=== PATIENT | male | born 1960 | race Caucasian/White ===

== ENCOUNTER 2017-01-30 02:33 | Inpatient (IN) | payer SELFPAY ==
[2017-01-30] MEDS ORDERED: Aspirin Low Dose CHEW TAB* 81 MG PO ONE (02:35)
[2017-01-30 03:15] LABS: ALT 28 U/L (7-52); AST 56 U/L (13-39); Albumin 3.5 g/dL (3.2-5.2); Alkaline Phosphatase 38 U/L (34-104); BUN/Creatinine Ratio 22.7 (8-20); Blood Urea Nitrogen 20 mg/dL (6-24); CO2 Carbon Dioxide 21 mmol/L (22-32); Calcium 8.2 mg/dL (8.6-10.3); Chloride 79 mmol/L (101-111); EGFR African American 114.4 (>60); EGFR Non-African American 88.9 (>60); Globulin 2.3 g/dL (2-4); Glucose 128 mg/dL (70-100); Magnesium 1.9 mg/dL (1.9-2.7); Potassium 3.8 mmol/L (3.5-5.0); Total Protein 5.8 g/dL (6.4-8.9)
[2017-01-30 03:16] LABS: Anion Gap 16 mmol/L (2-11); Sodium 116 mmol/L (133-145)
[2017-01-30 03:18] LABS: Comments Flag Yes; Hematocrit 17 % (42-52); Mean Corpuscular HGB Conc 34 g/dl (31-36); Mean Corpuscular Hemoglobin 32 pg (27-31); Mean Corpuscular Volume 94 fL (80-94); Mean Platelet Volume 10 um3 (7.4-10.4); Red Blood Count 1.76 10^6/ul (4.0-5.4); Red Cell Distribution Width 14 % (10.5-15); Troponin I 0.05 ng/mL (<0.04)
[2017-01-30 03:19] LABS: Add Diff/Slide Review? Slide Review Added; Hemoglobin 5.7 g/dl (14.0-18.0)
[2017-01-30 03:22] LABS: Alcohol < 10 mg/dL (<10)
[2017-01-30] MEDS ORDERED: Iohexol 350* (CONTRAST) 500 ML MDV IV ONE (03:29)
[2017-01-30 04:04] LABS: Comments Flag Yes; Hematocrit 16 % (42-52); Mean Corpuscular HGB Conc 35 g/dl (31-36); Mean Corpuscular Hemoglobin 33 pg (27-31); Mean Corpuscular Volume 94 fL (80-94); Mean Platelet Volume 9 um3 (7.4-10.4); Red Blood Count 1.66 10^6/ul (4.0-5.4); Red Cell Distribution Width 14 % (10.5-15); White Blood Count 13.9 10^3/ul (3.5-10.8)
[2017-01-30 04:06] LABS: Hemoglobin 5.4 g/dl (14.0-18.0)
[2017-01-30 04:07] LABS: ALT 28 U/L (7-52); AST 55 U/L (13-39); Albumin 3.4 g/dL (3.2-5.2); Alkaline Phosphatase 36 U/L (34-104); BUN/Creatinine Ratio 24.7 (8-20); Blood Urea Nitrogen 21 mg/dL (6-24); CO2 Carbon Dioxide 25 mmol/L (22-32); Calcium 8.1 mg/dL (8.6-10.3); Chloride 80 mmol/L (101-111); EGFR African American 119.1 (>60); EGFR Non-African American 92.6 (>60); Globulin 2.2 g/dL (2-4); Glucose 135 mg/dL (70-100); Potassium 3.7 mmol/L (3.5-5.0); Total Protein 5.6 g/dL (6.4-8.9)
[2017-01-30 04:08] LABS: Anion Gap 12 mmol/L (2-11); Sodium 117 mmol/L (133-145)
[2017-01-30] MEDS ORDERED: NS 0.9% 1000 ML* 1,000 ML IV ONE (04:08)
[2017-01-30 04:27] LABS: Alcohol < 10 mg/dL (<10)
[2017-01-30] MEDS ORDERED: Morphine INJ* 2 MG/ML 1 ML SYRINGE IV ONE (04:35)
[2017-01-30] MEDS ORDERED: Morphine INJ* 2 MG/ML 1 ML SYRINGE ONE (04:37)
[2017-01-30] MEDS ORDERED: Thiamine IV* 100 MG, Folic Acid IV* 1 MG, Multiple Vitamin IV ADULT* 10 ML in NS 0.9% 1... IV ONE (05:58)
--- NOTE | 2017-01-30 06:05 | ED ---
I, Oh,Sakshi, scribed for Josiah Ramirez MD on 01/30/17 at 0247 . HPI Chest Pain - HPI Summary HPI Summary: This 56 y/o male presents to ED for acute right anterior CP since 0700 AM on . He decided to visit ED when pt became concerned with persistent CP and onset of dizziness tonight. EMT also reports that pt c/o lightheaded dizziness and appeared to have decreased responsiveness when pt was sit on chair. ASA given en route by EMT. He took Advil without much relief. Pt consumed EtOH tonight. Pt is currently denying any PMHx. - History of Current Complaint Chief Complaint: ED Time Seen by Provider: 01/30/17 02:35 Hx Obtained From: Patient, EMS Onset/Duration: Atraumatic Timing: Constant Chest Pain Location: Right Anterior Chest Pain Radiates: No Character: Dull/Aching Aggravating Factor(s): Nothing Alleviating Factor(s): Nothing Associated Signs and Symptoms: Positive: Dizziness, Lightheadedness - Allergy/Home Medications Allergies/Adverse Reactions: Allergies Allergy/AdvReac Type Severity Reaction Status Date / Time No Known Allergies Allergy Verified 01/30/17 02:40 Home Medications: Home Medications NK [No Home Medications Reported] 01/30/17 [History Confirmed 01/30/17] PMH/Surg Hx/FS Hx/Imm Hx Previously Healthy: Yes - denies any PMHx Infectious Disease History: No Infectious Disease History: Denies: Traveled Outside the [place] in Last 30 Days - Family History Known Family History: Negative: Cardiac Disease - Social History Alcohol Use: Beer consumption tonight Hx Substance Use: No Substance Use Type: Reports: None Hx Tobacco Use: No Smoking Status (MU): Never Smoked Tobacco Review of Systems Negative: Fever Positive: Chest Pain Neurological: Other - positive for dizziness Positive: Syncope Negative: Anxious, Depressed All Other Systems Reviewed And Are Negative: Yes Physical Exam Triage Information Reviewed: Yes Vital Signs On Initial Exam: Initial Vitals Temp Pulse Resp BP Pulse Ox 98.8 F 126 22 116/62 100 01/30/17 02:34 01/30/17 02:34 01/30/17 02:34 01/30/17 02:34 01/30/17 02:34 Vital Signs Reviewed: Yes Appearance: Positive: Ill-Appearing, Thin Skin: Positive: Warm, Dry Eyes: Positive: CADE ENT: Positive: Hearing grossly normal Neck: Positive: Supple Respiratory/Lung Sounds: Positive: Breath Sounds Present Cardiovascular: Positive: RRR Abdomen Description: Positive: Nontender, No Organomegaly, Soft, Other: - rectal maroon stool, guaic pos Bowel Sounds: Positive: Present Musculoskeletal: Positive: Strength/ROM Intact Neurological: Positive: Sensory/Motor Intact, Alert, Oriented to Person Place, Time Psychiatric: Positive: Affect/Mood Appropriate Diagnostics - Vital Signs Vital Signs Temp Pulse Resp BP Pulse Ox 01/30/17 02:34 98.8 F 126 22 116/62 100 - Laboratory Lab Results: Lab Results 01/30/17 01/30/17 01/30/17 Range/Units 02:50 02:50 02:50 WBC 15.0 H (3.5-10.8) 10^3/ul RBC 1.76 L (4.0-5.4) 10^6/ul Hgb 5.7 L* (14.0-18.0) g/dl Hct 17 L (42-52) % MCV 94 (80-94) fL MCH 32 H (27-31) pg MCHC 34 (31-36) g/dl RDW 14 (10.5-15) % Plt Count 125 L (150-450) 10^3/ul MPV 10 (7.4-10.4) um3 Neut % (Auto) 91.2 H (38-83) % Lymph % (Auto) 5.8 L (25-47) % Avery % (Auto) 3.0 (1-9) % Eos % (Auto) 0 (0-6) % Baso % (Auto) 0 (0-2) % Absolute Neuts (auto) 13.7 H (1.5-7.7) 10^3/ul Absolute Lymphs (auto) 0.9 L (1.0-4.8) 10^3/ul Absolute Monos (auto) 0.4 (0-0.8) 10^3/ul Absolute Eos (auto) 0 (0-0.6) 10^3/ul Absolute Basos (auto) 0 (0-0.2) 10^3/ul Absolute Nucleated RBC 0.01 10^3/ul Nucleated RBC % 0.1 INR (Anticoag Therapy) (0.89-1.11) D-Dimer, Quantitative 493 H (Less Than 230) ng/mL Sodium 116 L* (133-145) mmol/L Potassium 3.8 (3.5-5.0) mmol/L Chloride 79 L (101-111) mmol/L Carbon Dioxide 21 L (22-32) mmol/L Anion Gap 16 H (2-11) mmol/L BUN 20 (6-24) mg/dL Creatinine 0.88 (0.67-1.17) mg/dL Est GFR ( Amer) 114.4 (>60) Est GFR (Non-Af Amer) 88.9 (>60) BUN/Creatinine Ratio 22.7 H (8-20) Glucose 128 H (70-100) mg/dL Lactic Acid (0.5-2.0) mmol/L Calcium 8.2 L (8.6-10.3) mg/dL Magnesium 1.9 (1.9-2.7) mg/dL Total Bilirubin 0.90 (0.2-1.0) mg/dL AST 56 H (13-39) U/L ALT 28 (7-52) U/L Alkaline Phosphatase 38 (34-104) U/L Troponin I 0.05 H* (<0.04) ng/mL Total Protein 5.8 L (6.4-8.9) g/dL Albumin 3.5 (3.2-5.2) g/dL Globulin 2.3 (2-4) g/dL Albumin/Globulin Ratio 1.5 (1-3) Serum Alcohol < 10 (<10) mg/dL Blood Type Antibody Screen Crossmatch 01/30/17 01/30/17 01/30/17 Range/Units 02:50 02:50 03:45 WBC (3.5-10.8) 10^3/ul RBC (4.0-5.4) 10^6/ul Hgb (14.0-18.0) g/dl Hct (42-52) % MCV (80-94) fL MCH (27-31) pg MCHC (31-36) g/dl RDW (10.5-15) % Plt Count (150-450) 10^3/ul MPV (7.4-10.4) um3 Neut % (Auto) (38-83) % Lymph % (Auto) (25-47) % Avery % (Auto) (1-9) % Eos % (Auto) (0-6) % Baso % (Auto) (0-2) % Absolute Neuts (auto) (1.5-7.7) 10^3/ul Absolute Lymphs (auto) (1.0-4.8) 10^3/ul Absolute Monos (auto) (0-0.8) 10^3/ul Absolute Eos (auto) (0-0.6) 10^3/ul Absolute Basos (auto) (0-0.2) 10^3/ul Absolute Nucleated RBC 10^3/ul Nucleated RBC % INR (Anticoag Therapy) 1.37 H (0.89-1.11) D-Dimer, Quantitative (Less Than 230) ng/mL Sodium (133-145) mmol/L Potassium (3.5-5.0) mmol/L Chloride (101-111) mmol/L Carbon Dioxide (22-32) mmol/L Anion Gap (2-11) mmol/L BUN (6-24) mg/dL Creatinine (0.67-1.17) mg/dL Est GFR ( Amer) (>60) Est GFR (Non-Af Amer) (>60) BUN/Creatinine Ratio (8-20) Glucose (70-100) mg/dL Lactic Acid 5.2 H* (0.5-2.0) mmol/L Calcium (8.6-10.3) mg/dL Magnesium (1.9-2.7) mg/dL Total Bilirubin (0.2-1.0) mg/dL AST (13-39) U/L ALT (7-52) U/L Alkaline Phosphatase (34-104) U/L Troponin I (<0.04) ng/mL Total Protein (6.4-8.9) g/dL Albumin (3.2-5.2) g/dL Globulin (2-4) g/dL Albumin/Globulin Ratio (1-3) Serum Alcohol (<10) mg/dL Blood Type O Positive Antibody Screen Negative Crossmatch See Detail 01/30/17 01/30/17 Range/Units 03:45 03:45 WBC 13.9 H (3.5-10.8) 10^3/ul RBC 1.66 L (4.0-5.4) 10^6/ul Hgb 5.4 L* (14.0-18.0) g/dl Hct 16 L (42-52) % MCV 94 (80-94) fL MCH 33 H (27-31) pg MCHC 35 (31-36) g/dl RDW 14 (10.5-15) % Plt Count 117 L (150-450) 10^3/ul MPV 9 (7.4-10.4) um3 Neut % (Auto) 91.0 H (38-83) % Lymph % (Auto) 5.4 L (25-47) % Avery % (Auto) 3.5 (1-9) % Eos % (Auto) 0 (0-6) % Baso % (Auto) 0.1 (0-2) % Absolute Neuts (auto) 12.7 H (1.5-7.7) 10^3/ul Absolute Lymphs (auto) 0.8 L (1.0-4.8) 10^3/ul Absolute Monos (auto) 0.5 (0-0.8) 10^3/ul Absolute Eos (auto) 0 (0-0.6) 10^3/ul Absolute Basos (auto) 0 (0-0.2) 10^3/ul Absolute Nucleated RBC 0.02 10^3/ul Nucleated RBC % 0.1 INR (Anticoag Therapy) (0.89-1.11) D-Dimer, Quantitative (Less Than 230) ng/mL Sodium 117 L* (133-145) mmol/L Potassium 3.7 (3.5-5.0) mmol/L Chloride 80 L (101-111) mmol/L Carbon Dioxide 25 (22-32) mmol/L Anion Gap 12 H (2-11) mmol/L BUN 21 (6-24) mg/dL Creatinine 0.85 (0.67-1.17) mg/dL Est GFR ( Amer) 119.1 (>60) Est GFR (Non-Af Amer) 92.6 (>60) BUN/Creatinine Ratio 24.7 H (8-20) Glucose 135 H (70-100) mg/dL Lactic Acid (0.5-2.0) mmol/L Calcium 8.1 L (8.6-10.3) mg/dL Magnesium (1.9-2.7) mg/dL Total Bilirubin 0.90 (0.2-1.0) mg/dL AST 55 H (13-39) U/L ALT 28 (7-52) U/L Alkaline Phosphatase 36 (34-104) U/L Troponin I (<0.04) ng/mL Total Protein 5.6 L (6.4-8.9) g/dL Albumin 3.4 (3.2-5.2) g/dL Globulin 2.2 (2-4) g/dL Albumin/Globulin Ratio 1.5 (1-3) Serum Alcohol < 10 (<10) mg/dL Blood Type Antibody Screen Crossmatch Result Diagrams: 01/30/17 03:45 01/30/17 03:45 Lab Statement: Any lab studies that have been ordered have been reviewed, and results considered in the medical decision making process. - Radiology CXR Radiology Interpretation Completed By: ED Physician - CT CTA Chest/Thorax CT Interpretation: No Acute Changes - No pulmonary embolism. No aortic dissection or aneurysm. No pNA or pleural effusions. Coronary artery disease. Nonspecific ground glass densities right lung. Chronic left rib fx. CT Interpretation Completed By: Radiologist - EKG 0240 Cardiac Rate: Tachycardia - 115 bpm EKG Rhythm: Sinus Tachycardia Re-Evaluation - Re-Evaluation First Eval Change: Improved - results d/w pt Chest Pain Course/Dx - Diagnoses Provider Diagnoses: GI bleed - Provider Notifications Discussed Care Of Patient With: Dr. Sweeney (Hospitalist) at 0336 AM Time Discussed With Above Provider: 03:36 - Critical Care Time Critical Care Time: 30-74 min Discharge - Discharge Plan Condition: Critical Disposition: ADMITTED TO [facility] documentation as recorded by the Bola amaro Soohyun accurately reflects the service I personally performed and the decisions made by , Josiah Ramirez MD.
[2017-01-30] MEDS ORDERED: Pantoprazole IV* 40 MG ONE (07:08)
[2017-01-30] MEDS: Pantoprazole IV* 80 MG in NS 0.9% 250 ML* 250 ML IVPB SCH ×2 (07:12→17:53)
[2017-01-30] MEDS: NS 0.9% 1000 ML* 1,000 ML IV SCH (07:13)
--- NOTE | 2017-01-30 07:50 | RAD ---
HISTORY: Chest pain COMPARISONS: January 30, 2017 VIEWS: 2: Frontal dual-energy and lateral views of the chest. FINDINGS: CARDIOMEDIASTINAL SILHOUETTE: The cardiomediastinal silhouette is normal. KIRSTIE: The kirstie are normal. PLEURA: The costophrenic angles are sharp. No pleural abnormalities are noted. LUNG PARENCHYMA: There is hyperinflation with flattening of the diaphragm and expansion of the AP diameter of the chest. ABDOMEN: The upper abdomen is clear. There is no subphrenic gas. BONES AND SOFT TISSUES: No bone or soft tissue abnormalities are noted. OTHER: None. IMPRESSION: NO ACTIVE CARDIOPULMONARY DISEASE.
--- NOTE | 2017-01-30 07:56 | RAD ---
HISTORY: Chest pain COMPARISONS: None TECHNIQUE: Multiple contiguous axial CT scans of the chest were obtained after the administration of nonionic intravenous contrast, timed to the pulmonary arterial phase of contrast enhancement.. Coronal and sagittal multiplanar reformations are also submitted for review. FINDINGS: Evaluation is limited by suboptimal contrast opacification. Attenuation of the main pulmonary artery is 186 Hounsfield units which is nondiagnostic for detection of pulmonary embolism. Evaluation is also limited by patient breathing motion artifact. NECK AND THYROID: The lower neck and thyroid are unremarkable. CHEST WALL: There is no lower cervical, axillary, or supraclavicular lymphadenopathy by size criteria. HEART AND PERICARDIUM: The heart is unremarkable. AORTA AND PULMONARY VASCULATURE: While there is no obvious pulmonary arterial filling defect to suggest pulmonary embolism, and there is insufficient contrast within the pulmonary artery to be considered a diagnostic study for detection of pulmonary embolism MEDIASTINUM: There is no mediastinal lymphadenopathy by size criteria. KIRSTIE: There is no hilar lymphadenopathy by size criteria. AIRWAY AND ESOPHAGUS: The airway is unremarkable, without endobronchial filling defect. The esophagus is grossly normal. LUNG PARENCHYMA: The lungs are clear. PLEURA: No pleural abnormalities are noted. UPPER ABDOMEN: The upper abdomen is unremarkable. BONES AND SOFT TISSUES: There is remote posttraumatic deformity to the left hemithorax. OTHER: None. IMPRESSION: WHILE THERE IS NO OBVIOUS PULMONARY ARTERIAL FILLING DEFECT, THIS IS A LIMITED STUDY THAT DOES NOT MEET THE DIAGNOSTIC CRITERIA FOR THE DETECTION OF PULMONARY EMBOLISM. FINDINGS WERE DISCUSSED WITH THE EMERGENCY DEPARTMENT PHYSICIAN AT APPROXIMATELY 7:52 AM ON JANUARY 30, 2017
[2017-01-30 09:20] LABS: Hematocrit 20 % (42-52); Hemoglobin 7.1 g/dl (14.0-18.0)
[2017-01-30 09:29] LABS: Comments Flag Yes
[2017-01-30] MEDS: Acetaminophen TAB* 325 MG PO PRN (09:37)
[2017-01-30 09:41] LABS: BUN/Creatinine Ratio 24.6 (8-20); Calcium 7.4 mg/dL (8.6-10.3); EGFR African American 151.5 (>60); EGFR Non-African American 117.8 (>60)
[2017-01-30 09:43] LABS: Troponin I 0.15 ng/mL (<0.04)
[2017-01-30] MEDS ORDERED: Artificial Tears* 15 ML BTL BOTH EYES PRN (10:05)
--- NOTE | 2017-01-30 10:08 | PN ---
Subjective Date of Service: 01/30/17 Interval History: Patient seen this morning. Says he has some residual chest pain still in mid- sternum, also says this has been constant for two days. Not aware of any blood in stool or melena, denies abdominal pain. Says he takes Aleve, 2 tabs, a few times a week. Reports he started to drink two weeks ago after stopping for 10 years. Denies ever having a problem or EtOH withdrawal symptoms, states he stopped drinking because he didn't want EtOH in the house with his children but now that they are older he has resumed drinking. Says he has had 3-4 beers, 3-4x /week for the past two weeks. Family History: Unchanged from Admission Social History: Unchanged from Admission Past Medical History: Unchanged from Admission Objective Active Medications: Acetaminophen (Tylenol Tab*) 650 mg PO Q6H PRN Sodium Chloride (Ns 0.9% 1000 Ml*) 1,000 mls @ 125 mls/hr IV PER RATE ABHIJIT Octreotide Acetate 500 mcg/ (Sodium Chloride) 101 mls @ 10.1 mls/hr IVPB Q10H ABHIJIT Pantoprazole Sodium 80 mg/ (Sodium Chloride) 250 mls @ 25 mls/hr IVPB Q10H ABHIJIT Vital Signs 01/30/17 01/30/17 01/30/17 06:00 06:09 06:15 Temperature Pulse Rate 109 109 108 Respiratory 20 25 22 Rate Blood Pressure 122/70 115/61 114/66 (mmHg) O2 Sat by Pulse 100 100 100 Oximetry 01/30/17 01/30/17 01/30/17 07:45 08:00 08:37 Temperature Pulse Rate 108 107 Respiratory 20 18 19 Rate Blood Pressure 104/63 106/66 (mmHg) O2 Sat by Pulse 96 96 Oximetry Oxygen Devices in Use Now: None Appearance: Middle-aged, M, laying in bed in NAD Eyes: No Scleral Icterus Ears/Nose/Mouth/Throat: - - Dry MM Neck: NL Appearance and Movements; NL JVP Respiratory: Symmetrical Chest Expansion and Respiratory Effort, Clear to Auscultation Cardiovascular: NL Sounds; No Murmurs; No JVD, - - Tachycardia Abdominal: NL Sounds; No Tenderness; No Distention Lymphatic: No Cervical Adenopathy Extremities: No Edema Skin: No Rash or Ulcers Neurological: Alert and Oriented x 3 Result Diagrams: 01/30/17 09:00 01/30/17 09:00 Additional Lab and Data: Lab Results 01/30/17 01/30/17 01/30/17 Range/Units 02:50 02:50 02:50 WBC 15.0 H (3.5-10.8) 10^3/ul RBC 1.76 L (4.0-5.4) 10^6/ul Hgb 5.7 L* (14.0-18.0) g/dl Hct 17 L (42-52) % MCV 94 (80-94) fL MCH 32 H (27-31) pg MCHC 34 (31-36) g/dl RDW 14 (10.5-15) % Plt Count 125 L (150-450) 10^3/ul MPV 10 (7.4-10.4) um3 Neut % (Auto) 91.2 H (38-83) % Lymph % (Auto) 5.8 L (25-47) % Kimble % (Auto) 3.0 (1-9) % Eos % (Auto) 0 (0-6) % Baso % (Auto) 0 (0-2) % Absolute Neuts (auto) 13.7 H (1.5-7.7) 10^3/ul Absolute Lymphs (auto) 0.9 L (1.0-4.8) 10^3/ul Absolute Monos (auto) 0.4 (0-0.8) 10^3/ul Absolute Eos (auto) 0 (0-0.6) 10^3/ul Absolute Basos (auto) 0 (0-0.2) 10^3/ul Absolute Nucleated RBC 0.01 10^3/ul Nucleated RBC % 0.1 INR (Anticoag Therapy) (0.89-1.11) D-Dimer, Quantitative 493 H (Less Than 230) ng/mL Sodium 116 L* (133-145) mmol/L Potassium 3.8 (3.5-5.0) mmol/L Chloride 79 L (101-111) mmol/L Carbon Dioxide 21 L (22-32) mmol/L Anion Gap 16 H (2-11) mmol/L BUN 20 (6-24) mg/dL Creatinine 0.88 (0.67-1.17) mg/dL Est GFR ( Amer) 114.4 (>60) Est GFR (Non-Af Amer) 88.9 (>60) BUN/Creatinine Ratio 22.7 H (8-20) Glucose 128 H (70-100) mg/dL Lactic Acid (0.5-2.0) mmol/L Calcium 8.2 L (8.6-10.3) mg/dL Magnesium 1.9 (1.9-2.7) mg/dL Total Bilirubin 0.90 (0.2-1.0) mg/dL AST 56 H (13-39) U/L ALT 28 (7-52) U/L Alkaline Phosphatase 38 (34-104) U/L Troponin I 0.05 H* (<0.04) ng/mL Total Protein 5.8 L (6.4-8.9) g/dL Albumin 3.5 (3.2-5.2) g/dL Globulin 2.3 (2-4) g/dL Albumin/Globulin Ratio 1.5 (1-3) Serum Alcohol < 10 (<10) mg/dL Blood Type Antibody Screen Crossmatch 01/30/17 01/30/17 01/30/17 Range/Units 02:50 02:50 03:45 WBC (3.5-10.8) 10^3/ul RBC (4.0-5.4) 10^6/ul Hgb (14.0-18.0) g/dl Hct (42-52) % MCV (80-94) fL MCH (27-31) pg MCHC (31-36) g/dl RDW (10.5-15) % Plt Count (150-450) 10^3/ul MPV (7.4-10.4) um3 Neut % (Auto) (38-83) % Lymph % (Auto) (25-47) % Kimble % (Auto) (1-9) % Eos % (Auto) (0-6) % Baso % (Auto) (0-2) % Absolute Neuts (auto) (1.5-7.7) 10^3/ul Absolute Lymphs (auto) (1.0-4.8) 10^3/ul Absolute Monos (auto) (0-0.8) 10^3/ul Absolute Eos (auto) (0-0.6) 10^3/ul Absolute Basos (auto) (0-0.2) 10^3/ul Absolute Nucleated RBC 10^3/ul Nucleated RBC % INR (Anticoag Therapy) 1.37 H (0.89-1.11) D-Dimer, Quantitative (Less Than 230) ng/mL Sodium (133-145) mmol/L Potassium (3.5-5.0) mmol/L Chloride (101-111) mmol/L Carbon Dioxide (22-32) mmol/L Anion Gap (2-11) mmol/L BUN (6-24) mg/dL Creatinine (0.67-1.17) mg/dL Est GFR ( Amer) (>60) Est GFR (Non-Af Amer) (>60) BUN/Creatinine Ratio (8-20) Glucose (70-100) mg/dL Lactic Acid 5.2 H* (0.5-2.0) mmol/L Calcium (8.6-10.3) mg/dL Magnesium (1.9-2.7) mg/dL Total Bilirubin (0.2-1.0) mg/dL AST (13-39) U/L ALT (7-52) U/L Alkaline Phosphatase (34-104) U/L Troponin I (<0.04) ng/mL Total Protein (6.4-8.9) g/dL Albumin (3.2-5.2) g/dL Globulin (2-4) g/dL Albumin/Globulin Ratio (1-3) Serum Alcohol (<10) mg/dL Blood Type O Positive Antibody Screen Negative Crossmatch See Detail 01/30/17 01/30/17 Range/Units 03:45 03:45 WBC 13.9 H (3.5-10.8) 10^3/ul RBC 1.66 L (4.0-5.4) 10^6/ul Hgb 5.4 L* (14.0-18.0) g/dl Hct 16 L (42-52) % MCV 94 (80-94) fL MCH 33 H (27-31) pg MCHC 35 (31-36) g/dl RDW 14 (10.5-15) % Plt Count 117 L (150-450) 10^3/ul MPV 9 (7.4-10.4) um3 Neut % (Auto) 91.0 H (38-83) % Lymph % (Auto) 5.4 L (25-47) % Kimble % (Auto) 3.5 (1-9) % Eos % (Auto) 0 (0-6) % Baso % (Auto) 0.1 (0-2) % Absolute Neuts (auto) 12.7 H (1.5-7.7) 10^3/ul Absolute Lymphs (auto) 0.8 L (1.0-4.8) 10^3/ul Absolute Monos (auto) 0.5 (0-0.8) 10^3/ul Absolute Eos (auto) 0 (0-0.6) 10^3/ul Absolute Basos (auto) 0 (0-0.2) 10^3/ul Absolute Nucleated RBC 0.02 10^3/ul Nucleated RBC % 0.1 INR (Anticoag Therapy) (0.89-1.11) D-Dimer, Quantitative (Less Than 230) ng/mL Sodium 117 L* (133-145) mmol/L Potassium 3.7 (3.5-5.0) mmol/L Chloride 80 L (101-111) mmol/L Carbon Dioxide 25 (22-32) mmol/L Anion Gap 12 H (2-11) mmol/L BUN 21 (6-24) mg/dL Creatinine 0.85 (0.67-1.17) mg/dL Est GFR ( Amer) 119.1 (>60) Est GFR (Non-Af Amer) 92.6 (>60) BUN/Creatinine Ratio 24.7 H (8-20) Glucose 135 H (70-100) mg/dL Lactic Acid (0.5-2.0) mmol/L Calcium 8.1 L (8.6-10.3) mg/dL Magnesium (1.9-2.7) mg/dL Total Bilirubin 0.90 (0.2-1.0) mg/dL AST 55 H (13-39) U/L ALT 28 (7-52) U/L Alkaline Phosphatase 36 (34-104) U/L Troponin I (<0.04) ng/mL Total Protein 5.6 L (6.4-8.9) g/dL Albumin 3.4 (3.2-5.2) g/dL Globulin 2.2 (2-4) g/dL Albumin/Globulin Ratio 1.5 (1-3) Serum Alcohol < 10 (<10) mg/dL Blood Type Antibody Screen Crossmatch Microbiology and Other Data: Microbiology 01/30/17 07:10 Nasal Screen MRSA (PCR)(KATIE) - Final Nasal Mrsa Negative Assess/Plan/Problems-Billing Assessment: Acute blood loss anemia 2/2 presumed GI bleed, hyponatremia, demand mediated NV in a 56 yo M with no reported PMH - Patient Problems (1) Acute blood loss anemia Current Visit: Yes Comment: Possible GI bleed. Hb at 7 after 2 units PRBC, will give one additional unit. Continue protonix gtt. Will continue octreotide gtt for now but variceal bleed seems unlikely. GI consult pending. INR up slightly, will give PO Vitamin K. (2) Hyponatremia Current Visit: Yes Comment: Na holding steady at 117, no neurological changes. Continue IVF for now. Will check SOSm, UOSm and Dexter. No old values to compare to. Continue to monitor BMP closely (3) Elevated troponin I level Current Visit: Yes Comment: Likely demand mediated due to low Hb. Continue to trend troponins until peak. Will get echo to evaluate for WMA. (4) Chest pain Current Visit: Yes Comment: ?due to demand mediated NV. ?MSK. Do not think PE is likely. CTA was non-diagnostic. Tylenol prn. (5) Lactic acidosis Current Visit: Yes Comment: Resolved (6) DVT prophylaxis Current Visit: Yes Comment: SCDs
[2017-01-30] MEDS ORDERED: Phytonadione Oral Solution* 5 MG/25 ML UDC PO ONE (10:10)
[2017-01-30 13:23] LABS: Comments Flag Yes; Hematocrit 20 % (42-52)
[2017-01-30 13:25] LABS: Hemoglobin 6.9 g/dl (14.0-18.0)
[2017-01-30 13:38] LABS: BUN/Creatinine Ratio 21.9 (8-20); Calcium 7.6 mg/dL (8.6-10.3); EGFR African American 141.9 (>60); EGFR Non-African American 110.4 (>60); Potassium 3.8 mmol/L (3.5-5.0)
[2017-01-30 13:40] LABS: Urine Random Chloride < 22 mmol/L; Urine Random Sodium 18 mmol/L
[2017-01-30 13:42] LABS: Troponin I 0.52 ng/mL (<0.04)
--- NOTE | 2017-01-30 14:30 | HP ---
HISTORY AND PHYSICAL: DATE OF ADMISSION: 01/30/17 CHIEF COMPLAINT: Chest pain. HISTORY OF PRESENT ILLNESS: The patient is a 56-year-old gentleman who says he started to feel somewhat dizzy over the last 2 to 3 days. He then developed chest pain in the center of his chest. It stays and is constant and it is about 2 inches and radiates. It is about 4-5/10 in severity. It comes and goes with his cough. He has not had much of a cough. He has no fever or chills. He has had some shortness of breath. He has no change in his bowel movements. He has lost 4 to 5 pounds in the last 2 to 3 weeks. He has had a poor appetite this week. He has had a colonoscopy a couple of years ago. In the ER, the patient was evaluated and of concern was his hemoglobin was close to 5 and he had a sodium of approximately 117. PAST MEDICAL HISTORY: He has no significant past medical history. MEDICATIONS: He is on no medications. ALLERGIES: He has no known drug allergies. FAMILY HISTORY: Mother of 62 of CVA. Father is alive at 85 and had a pacemaker 30 years ago. SOCIAL HISTORY: No tobacco. Alcohol, he said he quit it for about 10 years ___ ___ drinking more beer lately. He denies alcohol abuse. 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 He is . He has 3 children. REVIEW OF SYSTEMS: A 14-point review of systems is completed with the patient. All pertinent positives and negatives are in the history of present illness, otherwise it is negative. PHYSICAL EXAMINATION GENERAL: A pleasant gentleman lying in bed, in no acute distress. VITAL SIGNS: Blood pressure 124/70, pulse ox 100%, respiratory rate 21 breaths per minute, heart rate 69 beats per minute, temperature 99.3 degrees. HEENT: Normocephalic and atraumatic. Pupils are equal, round and reactive to light. Moist mucous membranes. NECK: Supple. No JVD, bruits, palpable thyroid or lymphadenopathy. CHEST: Clear to auscultation and percussion bilaterally. CARDIOVASCULAR: S1, S2 appreciated. Regular rate and rhythm. ABDOMEN: Positive bowel sounds in all 4 quadrants. Soft, nontender, and nondistended. No hepatosplenomegaly. EXTREMITIES: No cyanosis, clubbing, or edema. +2 peripheral pulses bilaterally. NEUROLOGIC: Alert and oriented x3. Moves all extremities. SKIN: No rashes or abnormalities. LABORATORY DATA: Sodium 117, potassium 3.7, chloride 80, CO2 25, BUN 21, creatinine 0.85, glucose is 135. Lactic acid 5.2. Troponin 0.05. AST is 65, ALT is 28, total bili is 0.90. White count 13.9, hemoglobin 5.4, hematocrit 16 , platelet count 117. INR is 1.37. D-dimer is 493. Urine toxicology less than 10 alcohol level. IMAGING: Chest x-ray, there is no apparent infiltrates. CTA of the chest with no PE. ASSESSMENT AND PLAN: 1. GI bleed. The patient does have guaiac positive stools, but he has no complaints of bleeding. I suspect he has an upper GI bleed due to a variocele or ulcer. He says he quit alcohol over 10 years. His labs also show elevated AST to ALT ratio. I suspect this patient drank more than he leads on and it is likely he has esophageal varices or peptic ulcer disease. I will ask GI to visit him. He will need a scope. Further management as clinically indicated. 2. Hyponatremia. Again, may be related to his alcohol intake and beer potomania. We will fluid restrict and monitor. 3. Elevated troponins. Cycle serial troponins. Probably demand ischemia from his anemia. 4. Lactic acidosis. We will recheck lactic acid. Likely from lack of perfusion with his anemia. 5. DVT prophylaxis. Sequential compressive stockings. 6. FEN. N.p.o. Awaiting likely endoscopy. 7. The patient is a full code. TIME SPENT: Over 70 minutes were spent on this H and P; more than 40 minutes of which is spent direct [id number] contact with the patient in evaluation, physical exam, counseling, and coordination of care. CC: [place], [place] * [id number]/[facility] #: [id number] KEVIN
[2017-01-30] MEDS ORDERED: Meperidine SYRINGE* 50 MG/ML ONE (15:16)
[2017-01-30] MEDS ORDERED: Midazolam* 1 MG/ML 10 ML VIAL (10 MG) ONE (15:16)
[2017-01-30] MEDS ORDERED: Midazolam* 1 MG/ML 5 ML VIAL (5 MG) ONE (15:16)
[2017-01-30 19:01] LABS: BUN/Creatinine Ratio 19.2 (8-20); Calcium 7.5 mg/dL (8.6-10.3); EGFR African American 141.9 (>60); EGFR Non-African American 110.4 (>60); Potassium 3.9 mmol/L (3.5-5.0)
[2017-01-30 19:11] LABS: Troponin I 0.69 ng/mL (<0.04)
[2017-01-30 20:37] LABS: Hematocrit 24 % (42-52); Hemoglobin 8.4 g/dl (14.0-18.0)
[2017-01-30] MEDS: oxyCODONE/Acetamin 5/325 MG* TAB PO PRN (21:17)
--- NOTE | 2017-01-30 22:22 | CONS ---
GASTROENTEROLOGY CONSULT: DATE OF CONSULT: 01/30/17 CONSULTING PHYSICIAN: Montez Grey MD REASON FOR CONSULTATION: Severe anemia. HISTORY: Presenting to ER with chest pain and hemoglobin 5.7 and now after 2 units of transfusion, up to 6.9, MCV 94, platelets 125. He denies any history of obvious gastrointestinal problems or bleeding. He has not had any vomiting or passing any dark stool. His bowel habit was regular, daily, and again of normal color. He has been taking two Advil 1 to 2 times a day three days a week for headaches. He had told another physician Moise, but it is Advil. His diet he says is pretty healthy as he emphasizes fish as opposed to meat. He has never been put on iron by anyone. He has never been through any GI workups. He saw his regular physician, Dr. Reid in [place], [place] May 2016 who said everything was fine. He had a colonoscopy in [facility] at [facility] 4 years ago and was told it was negative. PAST MEDICAL HISTORY: Said to be basically negative. MEDICATIONS: Just the Advil. ALLERGIES: None known to drugs. FAMILY HISTORY: He has one brother and one sister living in [place]. His father at 85 has had a pacemaker for 30 years. 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 He moved back to the [place] area, living in [place] about 4 or 5 years ago and then moved here to [place] 6 months ago working for [employer]. REVIEW OF SYSTEMS: No history of heart problems, arrhythmia, syncope, seizure, TB, hemoptysis, acute hepatitis. PHYSICAL EXAMINATION: He is a slender, surprisingly fit appearing, middle-aged man, in no distress. Skin is normal. He has no adenopathy. His lungs are clear and heart sounds are normal. The abdomen is flat, symmetric, firm, but without focal tenderness. Extremities show no edema or deformity. DIAGNOSTIC STUDIES/LAB DATA: Labs - after 3 units transfused, hemoglobin up to 6.9, platelets 117, INR 1.37. Chemistries on admission showed sodium 116, ALT 28, bilirubin 0.9, albumin 3.4, creatinine 0.73, BUN 16. Troponin in sequence is 0.05, 0.15, 0.52 with the most recent 2 hours ago at 1:10 p.m. Radiology review - CTA - of suboptimal quality, but without acute diagnostic findings. IMPRESSION: This 56-year-old man presenting with chest pain and found to be profoundly anemic has elevation in troponin. He has been hemodynamically stable. Upper endoscopy will be done to investigate his apparent bleeding as this information will be crucial given his Advil use and the possibility of coronary interventions. [id number]/[facility] #: [id number] [facility] HOSPITALRhoda
[2017-01-31 00:29] LABS: Hematocrit 25 % (42-52); Hemoglobin 8.7 g/dl (14.0-18.0)
[2017-01-31 00:40] LABS: BUN/Creatinine Ratio 16.4 (8-20); Calcium 7.6 mg/dL (8.6-10.3); EGFR African American 156.7 (>60); EGFR Non-African American 121.8 (>60); Potassium 3.6 mmol/L (3.5-5.0)
[2017-01-31 00:45] LABS: Troponin I 0.77 ng/mL (<0.04)
[2017-01-31] MEDS: Pantoprazole IV* 80 MG in NS 0.9% 250 ML* 250 ML IVPB SCH ×2 (04:11→12:32)
[2017-01-31] MEDS: NS 0.9% 1000 ML* 1,000 ML IV SCH ×3 (05:29→22:22)
[2017-01-31 06:52] LABS: Hematocrit 25 % (42-52); Hemoglobin 8.5 g/dl (14.0-18.0); Mean Corpuscular HGB Conc 34 g/dl (31-36); Mean Corpuscular Hemoglobin 31 pg (27-31); Mean Corpuscular Volume 90 fL (80-94); Mean Platelet Volume 9 um3 (7.4-10.4); Red Blood Count 2.75 10^6/ul (4.0-5.4); Red Cell Distribution Width 15 % (10.5-15); White Blood Count 8.1 10^3/ul (3.5-10.8)
[2017-01-31 06:56] LABS: Albumin 2.9 g/dL (3.2-5.2); BUN/Creatinine Ratio 13.6 (8-20); Calcium 7.6 mg/dL (8.6-10.3); EGFR African American 159.4 (>60); Globulin 1.9 g/dL (2-4); Potassium 3.3 mmol/L (3.5-5.0); Total Bilirubin 0.8 mg/dL (0.2-1.0); Total Protein 4.8 g/dL (6.4-8.9)
[2017-01-31 07:05] LABS: Troponin I 0.76 ng/mL (<0.04)
[2017-01-31] MEDS: oxyCODONE/Acetamin 5/325 MG* TAB PO PRN ×3 (08:23→20:06)
[2017-01-31] MEDS ORDERED: Thiamine IV* 100 MG/ML 2 ML VIAL IM ONE (08:53)
[2017-01-31] MEDS ORDERED: Potassium Chlor TAB* 20 MEQ TAB.ER PO ONE (08:57)
--- NOTE | 2017-01-31 09:04 | PN ---
Subjective Date of Service: 01/31/17 Interval History: Status post EGD and 4 units PRBC overnight Feels well this AM, no chest pain, no SOB, no LH or dizziness Has not had BM since arrival to hospital Family History: Unchanged from Admission Social History: Unchanged from Admission Past Medical History: Unchanged from Admission Objective Active Medications: Acetaminophen (Tylenol Tab*) 650 mg PO Q6H PRN PRN Reason: PAIN Last Admin: 01/30/17 09:37 Dose: 650 mg Folic Acid (Folvite Tab*) 1 mg PO DAILY [facility] Heparin Sodium (Porcine) (Heparin Flush Picc/Ml/Cvc(*)) 1 - 3 ml FLUSH 0600, 1800 ABHIJIT PRN Reason: Protocol Last Admin: 01/31/17 05:28 Dose: Not Given Pantoprazole Sodium 80 mg/ (Sodium Chloride) 250 mls @ 25 mls/hr IVPB Q10H ABHIJIT Last Admin: 01/31/17 04:11 Dose: 25 mls/hr Sodium Chloride (Ns 0.9% 1000 Ml*) 1,000 mls @ 125 mls/hr IV PER RATE [facility] Stop: 02/01/17 16:59 Lorazepam (Ativan Tab(*)) 0 mg PO .PER WAM SCORE ABHIJIT PRN Reason: Protocol Multivitamins/Minerals (Theragran/Minerals Tab*) 1 tab PO DAILY ABHIJIT Oxycodone/Acetaminophen (Percocet 5/325 Tab*) 1 tab PO Q4H PRN PRN Reason: PAIN Last Admin: 01/31/17 08:23 Dose: 1 tab Polyvinyl Alcohol (Polyvinyl Alcohol 1.4% Opth*) 1 drop BOTH EYES Q2H PRN PRN Reason: DRY EYE Last Admin: 01/30/17 10:36 Dose: 1 jake Potassium Chloride (Klor Con Er Tab*) 40 meq PO ONCE ONE Stop: 01/31/17 08:58 Thiamine HCl (Vitamin B1 Iv*) 100 mg IM ONCE ONE Stop: 01/31/17 08:54 Thiamine HCl (Vitamin B-1 Tab*) 100 mg PO DAILY [facility] Vital Signs 01/30/17 01/30/17 01/30/17 09:00 10:00 10:06 Temperature Pulse Rate 110 115 113 Respiratory 20 21 21 Rate Blood Pressure 117/71 124/65 (mmHg) O2 Sat by Pulse 94 100 98 Oximetry 01/30/17 01/30/17 01/30/17 11:00 11:49 12:00 Temperature 100.7 F Pulse Rate 114 108 Respiratory 22 23 Rate Blood Pressure 124/73 106/69 (mmHg) O2 Sat by Pulse 97 99 Oximetry 01/30/17 01/30/17 01/30/17 13:00 14:00 14:51 Temperature Pulse Rate 57 115 108 Respiratory 16 23 20 Rate Blood Pressure 110/61 103/68 103/74 (mmHg) O2 Sat by Pulse 87 96 98 Oximetry 01/30/17 01/30/17 01/30/17 15:00 15:46 15:51 Temperature 99.4 F Pulse Rate 113 108 Respiratory 19 21 Rate Blood Pressure 116/65 116/72 (mmHg) O2 Sat by Pulse 100 98 Oximetry 01/30/17 01/30/17 01/30/17 16:00 16:33 16:35 Temperature Pulse Rate 107 83 Respiratory 21 21 18 Rate Blood Pressure 117/73 125/83 127/82 (mmHg) O2 Sat by Pulse 99 97 Oximetry 01/30/17 01/30/17 01/30/17 16:40 16:45 16:48 Temperature Pulse Rate 110 120 123 Respiratory 20 20 19 Rate Blood Pressure 113/76 100/66 107/76 (mmHg) O2 Sat by Pulse 100 94 93 Oximetry 01/30/17 01/30/17 01/30/17 16:50 16:52 16:55 Temperature Pulse Rate 120 121 Respiratory 20 32 Rate Blood Pressure 80/66 84/48 92/55 (mmHg) O2 Sat by Pulse 97 98 Oximetry 01/30/17 01/30/17 01/30/17 17:00 17:05 17:10 Temperature Pulse Rate 113 114 111 Respiratory 23 18 19 Rate Blood Pressure 108/83 110/88 112/81 (mmHg) O2 Sat by Pulse 95 97 98 Oximetry 01/30/17 01/30/17 01/30/17 17:15 17:20 17:23 Temperature Pulse Rate 110 110 107 Respiratory 17 16 Rate Blood Pressure 91/59 88/61 88/56 (mmHg) O2 Sat by Pulse 95 98 96 Oximetry 01/30/17 01/30/17 01/30/17 17:25 17:30 17:35 Temperature Pulse Rate 106 105 103 Respiratory 16 16 17 Rate Blood Pressure 93/59 89/54 87/59 (mmHg) O2 Sat by Pulse 96 96 97 Oximetry 01/30/17 01/30/17 01/30/17 17:40 17:45 17:50 Temperature Pulse Rate 102 75 Respiratory 13 18 Rate Blood Pressure 90/57 93/59 93/59 (mmHg) O2 Sat by Pulse 97 78 Oximetry 01/30/17 01/30/17 01/30/17 18:00 19:00 19:26 Temperature 98.2 F Pulse Rate 102 Respiratory 16 18 Rate Blood Pressure 94/60 (mmHg) O2 Sat by Pulse 97 Oximetry 01/30/17 01/30/17 01/30/17 19:35 20:00 20:30 Temperature Pulse Rate 103 103 104 Respiratory 15 18 23 Rate Blood Pressure 110/60 107/72 105/61 (mmHg) O2 Sat by Pulse 99 98 97 Oximetry 01/30/17 01/30/17 01/30/17 21:00 21:30 22:00 Temperature Pulse Rate 92 102 Respiratory 20 21 19 Rate Blood Pressure 123/70 117/74 125/76 (mmHg) O2 Sat by Pulse 98 96 Oximetry 01/30/17 01/30/17 01/30/17 22:30 23:00 23:30 Temperature Pulse Rate 101 103 102 Respiratory 20 20 20 Rate Blood Pressure 114/75 114/77 113/73 (mmHg) O2 Sat by Pulse 97 95 94 Oximetry 01/30/17 01/31/17 01/31/17 23:33 00:00 00:01 Temperature 98.9 F Pulse Rate 111 128 Respiratory 25 26 Rate Blood Pressure 125/69 (mmHg) O2 Sat by Pulse 94 76 Oximetry 01/31/17 01/31/17 01/31/17 00:23 00:30 01:00 Temperature Pulse Rate 101 99 Respiratory 18 16 16 Rate Blood Pressure 111/60 122/73 (mmHg) O2 Sat by Pulse 96 97 Oximetry 01/31/17 01/31/17 01/31/17 01:30 02:00 02:30 Temperature Pulse Rate 100 117 96 Respiratory 16 22 14 Rate Blood Pressure 120/77 118/70 (mmHg) O2 Sat by Pulse 94 93 94 Oximetry 01/31/17 01/31/17 01/31/17 03:00 03:30 03:59 Temperature 99.2 F Pulse Rate 96 95 Respiratory 15 13 Rate Blood Pressure 117/77 109/73 (mmHg) O2 Sat by Pulse 97 95 Oximetry 01/31/17 01/31/17 01/31/17 04:00 04:30 05:00 Temperature Pulse Rate 99 98 93 Respiratory 15 15 13 Rate Blood Pressure 125/75 117/81 113/77 (mmHg) O2 Sat by Pulse 93 93 95 Oximetry 01/31/17 01/31/17 01/31/17 05:30 06:00 07:00 Temperature Pulse Rate 94 96 92 Respiratory 14 17 21 Rate Blood Pressure 112/76 127/79 123/72 (mmHg) O2 Sat by Pulse 95 96 98 Oximetry 01/31/17 01/31/17 07:33 08:00 Temperature 99.3 F 99.3 F Pulse Rate Respiratory Rate Blood Pressure (mmHg) O2 Sat by Pulse Oximetry Oxygen Devices in Use Now: None Appearance: sitting up in bed washing himself with towels, interactive, NAD Eyes: No Scleral Icterus, PERRLA Ears/Nose/Mouth/Throat: Clear Oropharnyx, Mucous Membranes Moist Neck: NL Appearance and Movements; NL JVP, Trachea Midline Respiratory: Symmetrical Chest Expansion and Respiratory Effort, - - rales in bases Cardiovascular: NL Sounds; No Murmurs; No JVD, RRR Abdominal: NL Sounds; No Tenderness; No Distention, No Hepatosplenomegaly Lymphatic: No Cervical Adenopathy Extremities: No Edema, No Clubbing, Cyanosis Skin: - - healing lacerations on b/l knees Neurological: Alert and Oriented x 3 Result Diagrams: 01/31/17 06:00 01/31/17 06:00 Additional Lab and Data: Lab Results 01/30/17 01/30/17 01/30/17 Range/Units 02:50 02:50 02:50 WBC 15.0 H (3.5-10.8) 10^3/ul RBC 1.76 L (4.0-5.4) 10^6/ul Hgb 5.7 L* (14.0-18.0) g/dl Hct 17 L (42-52) % MCV 94 (80-94) fL MCH 32 H (27-31) pg MCHC 34 (31-36) g/dl RDW 14 (10.5-15) % Plt Count 125 L (150-450) 10^3/ul MPV 10 (7.4-10.4) um3 Neut % (Auto) 91.2 H (38-83) % Lymph % (Auto) 5.8 L (25-47) % [place] % (Auto) 3.0 (1-9) % Eos % (Auto) 0 (0-6) % Baso % (Auto) 0 (0-2) % Absolute Neuts (auto) 13.7 H (1.5-7.7) 10^3/ul Absolute Lymphs (auto) 0.9 L (1.0-4.8) 10^3/ul Absolute Monos (auto) 0.4 (0-0.8) 10^3/ul Absolute Eos (auto) 0 (0-0.6) 10^3/ul Absolute Basos (auto) 0 (0-0.2) 10^3/ul Absolute Nucleated RBC 0.01 10^3/ul Nucleated RBC % 0.1 INR (Anticoag Therapy) (0.89-1.11) D-Dimer, Quantitative 493 H (Less Than 230) ng/mL Sodium 116 L* (133-145) mmol/L Potassium 3.8 (3.5-5.0) mmol/L Chloride 79 L (101-111) mmol/L Carbon Dioxide 21 L (22-32) mmol/L Anion Gap 16 H (2-11) mmol/L BUN 20 (6-24) mg/dL Creatinine 0.88 (0.67-1.17) mg/dL Est GFR ( Amer) 114.4 (>60) Est GFR (Non-Af Amer) 88.9 (>60) BUN/Creatinine Ratio 22.7 H (8-20) Glucose 128 H (70-100) mg/dL Lactic Acid (0.5-2.0) mmol/L Calcium 8.2 L (8.6-10.3) mg/dL Magnesium 1.9 (1.9-2.7) mg/dL Total Bilirubin 0.90 (0.2-1.0) mg/dL AST 56 H (13-39) U/L ALT 28 (7-52) U/L Alkaline Phosphatase 38 (34-104) U/L Troponin I 0.05 H* (<0.04) ng/mL Total Protein 5.8 L (6.4-8.9) g/dL Albumin 3.5 (3.2-5.2) g/dL Globulin 2.3 (2-4) g/dL Albumin/Globulin Ratio 1.5 (1-3) Serum Alcohol < 10 (<10) mg/dL Blood Type Antibody Screen Crossmatch 01/30/17 01/30/17 01/30/17 Range/Units 02:50 02:50 03:45 WBC (3.5-10.8) 10^3/ul RBC (4.0-5.4) 10^6/ul Hgb (14.0-18.0) g/dl Hct (42-52) % MCV (80-94) fL MCH (27-31) pg MCHC (31-36) g/dl RDW (10.5-15) % Plt Count (150-450) 10^3/ul MPV (7.4-10.4) um3 Neut % (Auto) (38-83) % Lymph % (Auto) (25-47) % [place] % (Auto) (1-9) % Eos % (Auto) (0-6) % Baso % (Auto) (0-2) % Absolute Neuts (auto) (1.5-7.7) 10^3/ul Absolute Lymphs (auto) (1.0-4.8) 10^3/ul Absolute Monos (auto) (0-0.8) 10^3/ul Absolute Eos (auto) (0-0.6) 10^3/ul Absolute Basos (auto) (0-0.2) 10^3/ul Absolute Nucleated RBC 10^3/ul Nucleated RBC % INR (Anticoag Therapy) 1.37 H (0.89-1.11) D-Dimer, Quantitative (Less Than 230) ng/mL Sodium (133-145) mmol/L Potassium (3.5-5.0) mmol/L Chloride (101-111) mmol/L Carbon Dioxide (22-32) mmol/L Anion Gap (2-11) mmol/L BUN (6-24) mg/dL Creatinine (0.67-1.17) mg/dL Est GFR ( Amer) (>60) Est GFR (Non-Af Amer) (>60) BUN/Creatinine Ratio (8-20) Glucose (70-100) mg/dL Lactic Acid 5.2 H* (0.5-2.0) mmol/L Calcium (8.6-10.3) mg/dL Magnesium (1.9-2.7) mg/dL Total Bilirubin (0.2-1.0) mg/dL AST (13-39) U/L ALT (7-52) U/L Alkaline Phosphatase (34-104) U/L Troponin I (<0.04) ng/mL Total Protein (6.4-8.9) g/dL Albumin (3.2-5.2) g/dL Globulin (2-4) g/dL Albumin/Globulin Ratio (1-3) Serum Alcohol (<10) mg/dL Blood Type O Positive Antibody Screen Negative Crossmatch See Detail 01/30/17 01/30/17 Range/Units 03:45 03:45 WBC 13.9 H (3.5-10.8) 10^3/ul RBC 1.66 L (4.0-5.4) 10^6/ul Hgb 5.4 L* (14.0-18.0) g/dl Hct 16 L (42-52) % MCV 94 (80-94) fL MCH 33 H (27-31) pg MCHC 35 (31-36) g/dl RDW 14 (10.5-15) % Plt Count 117 L (150-450) 10^3/ul MPV 9 (7.4-10.4) um3 Neut % (Auto) 91.0 H (38-83) % Lymph % (Auto) 5.4 L (25-47) % [place] % (Auto) 3.5 (1-9) % Eos % (Auto) 0 (0-6) % Baso % (Auto) 0.1 (0-2) % Absolute Neuts (auto) 12.7 H (1.5-7.7) 10^3/ul Absolute Lymphs (auto) 0.8 L (1.0-4.8) 10^3/ul Absolute Monos (auto) 0.5 (0-0.8) 10^3/ul Absolute Eos (auto) 0 (0-0.6) 10^3/ul Absolute Basos (auto) 0 (0-0.2) 10^3/ul Absolute Nucleated RBC 0.02 10^3/ul Nucleated RBC % 0.1 INR (Anticoag Therapy) (0.89-1.11) D-Dimer, Quantitative (Less Than 230) ng/mL Sodium 117 L* (133-145) mmol/L Potassium 3.7 (3.5-5.0) mmol/L Chloride 80 L (101-111) mmol/L Carbon Dioxide 25 (22-32) mmol/L Anion Gap 12 H (2-11) mmol/L BUN 21 (6-24) mg/dL Creatinine 0.85 (0.67-1.17) mg/dL Est GFR ( Amer) 119.1 (>60) Est GFR (Non-Af Amer) 92.6 (>60) BUN/Creatinine Ratio 24.7 H (8-20) Glucose 135 H (70-100) mg/dL Lactic Acid (0.5-2.0) mmol/L Calcium 8.1 L (8.6-10.3) mg/dL Magnesium (1.9-2.7) mg/dL Total Bilirubin 0.90 (0.2-1.0) mg/dL AST 55 H (13-39) U/L ALT 28 (7-52) U/L Alkaline Phosphatase 36 (34-104) U/L Troponin I (<0.04) ng/mL Total Protein 5.6 L (6.4-8.9) g/dL Albumin 3.4 (3.2-5.2) g/dL Globulin 2.2 (2-4) g/dL Albumin/Globulin Ratio 1.5 (1-3) Serum Alcohol < 10 (<10) mg/dL Blood Type Antibody Screen Crossmatch Microbiology and Other Data: Microbiology 01/30/17 07:10 Nasal Screen MRSA (PCR)(KATIE) - Final Nasal Mrsa Negative Assess/Plan/Problems-Billing Assessment: 56 yo M recently moved to [place] from [place], no known PMHx (no PCP), p/w dizziness/"clammy" found with anemia and elevated troponin s/p EGD with severe esophagitis, antral gastritis with multiple erosions, and deep duodenal ulcer - Patient Problems (1) Acute blood loss anemia Comment: GIB with esophagitis, gastritis with erosions and duodenal ulcer CLOtest negative Endorses EtoH use and alleve s/p 4 units PRBC with stable H/H repeat H/H this evening c/w PPI ggt another 24 hrs transfer to telemetry (2) Elevated troponin I level Comment: Suspect demand ischemia mediated due to low Hb. TTE pending consider stress based on TTE otherwise outpatient stress Holding ASA, beta vipul in setting of acute GI bleed (3) Hyponatremia Comment: Suspect hypovolemic hyponatremia Liberalize volume restriction Advance to soft - heart healthy diet c/w NS for 2 additional liters (4) Alcohol abuse Comment: Suspect higher consuption than indicated based on hyponatremia, leg lacerations Place on [facility] Folate, thiamine (5) Drug abuse Comment: EMS records indicate possible IV needles on floor in bathroom at time of arrival Check Utox. Will have opioiods but curious about cocaine in setting of chest pain (6) DVT prophylaxis Comment: SCDs
[2017-01-31] MEDS: Thiamine TAB* 100 MG TAB PO SCH (09:16)
[2017-01-31] MEDS: Multivitamins/Minerals TAB PO SCH (09:16)
[2017-01-31] MEDS: Folic Acid TAB* 1 MG PO SCH (09:16)
--- NOTE | 2017-01-31 12:04 | PRO ---
DATE: 01/30/17 - ROOM #447 PROCEDURE: Upper gastrointestinal endoscopy and biopsy of mid esophagus at 33 from area of confluent erosion and CLOtest. INDICATION: This 56-year-old man came to the emergency room with complaint of chest pain. He was found to be severely anemic. He has not had any emesis or hematemesis in the ER nor any stools passed. GI bleeding was suspected. He does admit to taking Advil. In the ICU, his pulse had been consistently above 100, currently around 110 to 115, and he has been a little bit flushed, diaphoretic, and has been making good urine output of 800 cc during an 8-hour shift. Informed consent was obtained and the procedure of gastroscopy explained with potential for the need for hemostatic treatment. This was discussed in general terms. ENDOSCOPIST: Dr. Garcia. MEDICATIONS: See conscious sedation record. FINDINGS: He is a slender man with a several day growth of riley, appearing a little dishevelled, but in no acute distress other than the mild diaphoresis and the tachycardia. He says he has a little bit of a central chest pain. It does not radiate anywhere. It has been present for a couple of days. EGD: Larynx - symmetric, limited views. Esophagus - easily entered and mucosa is normal down to about 27 and then there is a gradual evolution of erythema and granularity, which by 30 becomes a confluent sloughing of the mucosa with a white exudative base circumferentially. This continues on down to the EG junction at about 38. There was then a iphyo-qu-allerp size hiatal hernia with a loose EG junction. Stomach - generally normal mucosa in the fundus and body and antrum. There is some minimal punctate erosive change in the antrum. A CLOtest was taken mid gastric body. Duodenum - the pylorus is normal and in the bulb, a small ulcer around the 2 o' clock orientation mid bulb. At the apex of the bulb, 2 o'clock orientation, there is a fairly deep ulcer with a black spot, clearly chronic. There is no clot and no active bleeding. Second to fourth portion of the duodenum appeared normal. Coming back, there were no additional findings. IMPRESSION: 1. Severe erosive esophagitis - would infer injury over a long period of time with considerable time spent supine or with a caustic injury implying alteration in consciousness. 2. Mild antral gastritis. 3. Duodenal ulcer - CLOtest pending. His Advil use could explain it. [id number]/[facility] #: [id number] MTDD
[2017-01-31 13:35] LABS: Benzodiazepine Urine Screen Presumptive Positive (None Detect)
[2017-01-31] MEDS: Acetaminophen TAB* 325 MG PO PRN ×2 (14:53→23:24)
[2017-01-31 16:49] LABS: Hematocrit 26 % (42-52)
--- NOTE | 2017-01-31 18:01 | ECHO ---
Patient: FLORENCIO RAO [facility] Rec#: [id number] : 1960 Date: 01/31/2017 Age: 56y Height: 185.42 cm / 73.0 in Weight: 78.02 kg / 172.0 lbs Sex: M BSA: 2.02 Room#: ICU-2 Admit Date#: 01/30/2017 Type: Inpatient Referring: THADDEUS ORDONEZ MD Reading: Rich Linton MD Medical Surgical Tech: Linda Wing [facility] Medical Surgical Tech: Helen Lorenzana Transthoracic Echocardiogram Indication: Chest pain, elevated troponins BP: 127/79 HR: 102 Rhythm: Tachycardia Findings History: ETOH use. Technical Comments: The study is technically limited due to patient body habitus. Secondary to structure. Completed at 0940. Left Ventricle: The left ventricular chamber size is decreased. Moderate concentric left ventricular hypertrophy is observed. The estimated ejection fraction is 50-55%. The assessment of diastolic function is non-diagnostic. Left Atrium: The left atrium is normal in size. Right Ventricle: The right ventricle is mild to moderately dilated. The right ventricular global systolic function is moderately reduced. Flattened in systole consistent with right ventricular pressure overload. Right Atrium: The right atrium is mild to moderately dilated. Aortic Valve: The aortic valve is trileaflet. The aortic valve leaflets are mildly thickened. There is no evidence of aortic regurgitation. There is no evidence of aortic stenosis. Mitral Valve: The mitral valve leaflets are mildly thickened. There is mild mitral valve prolapse. There is mild to moderate mitral regurgitation. There is no evidence of mitral stenosis. Tricuspid Valve: The tricuspid valve leaflets are mildly thickened. There is mild to moderate tricuspid regurgitation. There is evidence that pulmonary hypertension may be underestimated. There is no tricuspid stenosis. Pulmonic Valve: The pulmonic valve appears normal. There is mild pulmonic regurgitation. There is no pulmonic stenosis. Pericardium: The pericardium appears normal. Aorta: There is no dilatation of the ascending aorta. There is no dilatation of the aortic arch. There is no dilation of the aortic root. Pulmonary Artery: The main pulmonary artery appears normal. Venous: The venous system is not well visualized. Summary: There was not any prior study for comparison. Conclusions The study is technically limited due to patient body habitusThe left ventricular chamber size is decreased. Moderate concentric left ventricular hypertrophy is observed. The estimated ejection fraction is 50-55%. The right ventricular global systolic function is moderately reduced. Flattened in systole consistent with right ventricular pressure overload. The right atrium is mild to moderately dilated. There is mild mitral valve prolapse. There is mild to moderate mitral regurgitation. There is mild to moderate tricuspid regurgitation. Measurements Name Value Normal Range RVIDd (AP) 2D 3.4 cm (0.9 - 2.6) RVDdMajor (2D) 4.6 cm (2.2 - 4.4) RAd ISD 4CH 5.3 cm (3.4 - 4.9) RA (A4C)W 5.3 cm (2.9 - 4.6) IVSd (2D) 1.6 cm (0.6 - 1) LVPWd (2D) 1.3 cm (0.6 - 1) LVIDd (2D) 3.2 cm (3.6 - 5.4) LVIDs (2D) 2.6 cm - LV FS (2D) 18 % (25 - 45) Aortic Annulus 2.2 cm (1.4 - 2.6) Ao root diameter (2D) 3.5 cm (2.1 - 3.5) Ascending Ao 3.2 cm (2.1 - 3.4) Aortic arch 2.7 cm (1.8 - 3.4) Descending Ao 0.6 cm - LA dimension (AP) 2D 2.5 cm (2.3 - 3.8) LAd ISD 4CH 3.4 cm (2.9 - 5.3) LA ISD 4CH W 3.7 cm (2.5 - 4.5) Name Value Normal Range LA ESV SP 4CH (A/L) 24 ml - LA ESV SP 4CH (MOD) 20 ml - Name Value Normal Range MV E-wave Vmax 0.7 m/sec - MV deceleration time 120 msec - MV A-wave Vmax 0.7 m/sec - MV E:A ratio 1 ratio - LV septal e' Vmax 0.09 m/sec - LV E:e' septal ratio 7.78 ratio - Name Value Normal Range AV Vmax 1.8 m/sec - AV VTI 27 cm - AV peak gradient 13.34 mmHg - AV mean gradient 5.91 mmHg - LVOT Vmax 0.8 m/sec - LVOT VTI 11.09 cm - LVOT peak gradient 2.32 mmHg - LVOT mean gradient 1.12 mmHg - Name Value Normal Range TR Vmax 2.4 m/sec - TR peak gradient 23 mmHg - RAP 8 mmHg - RVSP 31 mmHg - Name Value Normal Range PV Vmax 0.7 m/sec - PV peak gradient 2.46 mmHg -
[2017-01-31] MEDS ORDERED: Iohexol 350* (CONTRAST) 500 ML MDV IV ONE (19:18)
--- NOTE | 2017-01-31 21:13 | RAD ---
Indication: Right heart overload. CTA of the chest was performed after IV contrast administration. Coronal and sagittal reconstructed images were obtained. Contrast: Administered 70.8 ml of OMNIPAQUE 350 mgi/ml Pulmonary arterial tree is well opacified. There are no filling defects present to suggest pulmonary There is a pretracheal lymph node measuring up to 9 mm. No other mediastinal or hilar adenopathy is noted. The heart demonstrates no pericardial effusion. CT of the major bronchi appear patent. The lung mckeon demonstrate no evidence of alveolar consolidation. Deformity of the left chest wall from prior rib fracture is noted. There is bibasilar atelectasis noted. The thoracic spine demonstrates no evidence of fracture. IMPRESSION: No definite pulmonary embolus is noted. Deformity of the left chest wall.
[2017-02-01] MEDS: Pantoprazole IV* 80 MG in NS 0.9% 250 ML* 250 ML IVPB SCH ×2 (00:41→09:50)
[2017-02-01] MEDS: LORazepam TAB(*) 1 MG PO SCH ×3 (04:19→11:18)
[2017-02-01 05:53] LABS: Hematocrit 24 % (42-52); Hemoglobin 8.1 g/dl (14.0-18.0); Mean Corpuscular HGB Conc 34 g/dl (31-36); Mean Corpuscular Hemoglobin 31 pg (27-31); Mean Corpuscular Volume 91 fL (80-94); Mean Platelet Volume 7 um3 (7.4-10.4); Red Blood Count 2.58 10^6/ul (4.0-5.4); Red Cell Distribution Width 15 % (10.5-15); White Blood Count 5.8 10^3/ul (3.5-10.8)
[2017-02-01 06:09] LABS: BUN/Creatinine Ratio 8.9 (8-20); EGFR African American 192.7 (>60); EGFR Non-African American 149.9 (>60); Potassium 2.8 mmol/L (3.5-5.0)
[2017-02-01] MEDS: Thiamine TAB* 100 MG TAB PO SCH (08:50)
[2017-02-01] MEDS: Folic Acid TAB* 1 MG PO SCH (08:50)
[2017-02-01] MEDS: Multivitamins/Minerals TAB PO SCH (08:50)
[2017-02-01] MEDS: Acetaminophen TAB* 325 MG PO PRN (09:50)
[2017-02-01] MEDS ORDERED: Potassium Chlor TAB* 20 MEQ TAB.ER PO ONE (10:00)
[2017-02-01] MEDS: Omeprazole CAP* 20 MG PO SCH ×2 (13:25→20:00)
[2017-02-01 17:01] LABS: Hematocrit 28 % (42-52); Hemoglobin 9.8 g/dl (14.0-18.0)
[2017-02-01 17:14] LABS: Calcium 8.3 mg/dL (8.6-10.3); EGFR African American 156.7 (>60); EGFR Non-African American 121.8 (>60); Potassium 3.5 mmol/L (3.5-5.0)
[2017-02-01 17:35] VITALS: BP 128/85
--- NOTE | 2017-02-02 04:29 | DS ---
DISCHARGE SUMMARY: DATE OF ADMISSION: 01/30/17 DATE OF DISCHARGE: 02/01/17 PRIMARY CARE PROVIDER: Dr. Pipo Wright. PRIMARY DIAGNOSES: Acute gastrointestinal bleed secondary to esophagitis, gastritis with erosions, and duodenal ulcer with a negative CLOtest. SECONDARY DIAGNOSES: Include: 1. Hyponatremia. 2. Elevated troponin, suspected demand ischemia. 3. Suspected alcohol abuse. 4. Suspected drug abuse based on EMS reports. 5. Acute blood loss anemia. 6. Hypokalemia. PROCEDURES PERFORMED DURING HOSPITAL STAY: Upper endoscopy, 01/30/17, with Dr. Garcia, impression: Severe erosive esophagitis, would infer injury over a long period of time with considerable time spent supine or with a caustic injury implying alteration in consciousness. Mild antral gastritis. Duodenal ulcer with a negative CLOtest. PERTINENT IMAGING: CTA chest and thorax, 01/31/17, impression: No definite pulmonary embolus is noted. Deformity of left chest wall from prior rib fractures noted. Transthoracic echocardiogram, impression: Moderate concentric left ventricular hypertrophy. Estimated LVEF 50% to 55%. Right ventricular global systolic function is moderately reduced. Flattened end systole consistent with right ventricular pressure overload. Right atrium is [id number]-[id number] dilated. Mild mitral valve prolapse, ahnu-es-rzjqemwz MR, zwxy-kw-ykfddkji TR. MEDICATIONS ON DISCHARGE: 1. Prilosec 20 mg twice daily. 2. Metoprolol tartrate 12.5 mg twice daily. 3. Ferrous sulfate 325 mg twice daily. 4. Acetaminophen 650 mg every 6 hours as needed for pain or fever. PERTINENT LABORATORY DATA: Sodium on presentation 116, increased to 133 with crystalloid replacement; lowest potassium 2.8, 3.5 on the day of discharge. Troponin I peaked at 0.77. Hemoglobin on presentation 5.7, on discharge 9.8, previous value was 8.1 on the morning of discharge. HISTORY OF PRESENT ILLNESS AND HOSPITAL COURSE: This is a 56-year-old man recently moved from [place] to [place] with no known past medical history, developed chest pain associated with shortness of breath for which he presented to the hospital and was found with severe anemia as indicated above. He was brought for endoscopy, notable for severe erosive esophagitis, mild antral gastritis, and duodenal ulcer. Per the patient, he did acknowledge Motrin use; however, not significant amount. He also acknowledged recently starting to drink 2 to 5 alcoholic beverages per day and nothing more. Of note, EMS records thought they saw empty pill bottles and syringes in his bathroom at the time of his pickup. However, the patient denied heavy alcohol use or other drug use. The patient received a total of 4 units of packed red blood cells with appropriate response in his hematocrit. Suspected his anemia was secondary to the afore-mentioned findings on EGD in conjunction with NSAIDs and alcohol. His hyponatremia was thought to be hypovolemic hyponatremia in the setting of alcohol use. His elevated troponin was concerned for demand ischemia in the setting of severe anemia. The patient would benefit from outpatient stress test and was advised not to perform heavy exertion or strenuous exercise prior to its acquisition. Additionally, the patient's echocardiogram indicated some level of right ventricular strain. There was concern for PE; however, CTA that same day did not indicate any indication of pulmonary embolus. The patient denies smoking history. There is no clear indication of STEWART; however, outpatient evaluation for STEWART may be warranted. On the day of discharge, the patient was tolerating regular diet, ambulatory around the unit. All medications are new on discharge and were sent to his pharmacy of choosing. FOLLOWUP INSTRUCTIONS: At followup, please: 1. Follow BMP for sodium and potassium. 2. Follow CBC for stability in hemoglobin. 3. Arrange outpatient stress test. 4. Arrange for outpatient sleep study in the setting of right ventricular strain. 5. Can consider repeat echocardiogram in the future to evaluate right ventricular strain. 6. Encourage continued alcohol abstinence. Reasons to return to the hospital including but not limited to recurrent or worsening symptoms, chest pain, shortness of breath, nausea, vomiting, lightheadedness, loss of consciousness, near loss of consciousness, dark black stool, bleeding from any source, fatigue, increased fever, diarrhea, constipation, inability to obtain or tolerate his medications were discussed at length with the patient and he acknowledged understanding. TIME SPENT: Greater than 1 hour was spent on the discharge of this patient, greater than half was dmlk-[id number] with the patient. [id number]/[facility] #: [id number] KEVIN
== END 2017-02-01 20:00 | disposition home or self-care (01) | DRG 811 ==
LOC: ED 02:33 → ICU 05:58 → MEDTELE 01-31 12:49
PROVIDERS: ADMIT Internal Medicine; ATTEND Internal Medicine
PROC: 0DB68ZX Excision of Stomach, Via Natural or Artificial Opening Endoscopic, Diagnostic (ICD-10-PCS; principal; 2017-01-30)
PROC: 0DB98ZX Excision of Duodenum, Via Natural or Artificial Opening Endoscopic, Diagnostic (ICD-10-PCS; 2017-01-30)
PROC: 30233N1 Transfusion of Nonautologous Red Blood Cells into Peripheral Vein, Percutaneous Approach (ICD-10-PCS; 2017-01-30)
PROC: 02HV33Z Insertion of Infusion Device into Superior Vena Cava, Percutaneous Approach (ICD-10-PCS; 2017-01-30)
DX: D62 Acute posthemorrhagic anemia (principal); K29.71 Gastritis, unspecified, with bleeding; I24.8 Other forms of acute ischemic heart disease; E87.2 Acidosis; K26.4 Chronic or unspecified duodenal ulcer with hemorrhage; E87.1 Hypo-osmolality and hyponatremia; K20.8 Other esophagitis; I08.1 Rheumatic disorders of both mitral and tricuspid valves; F10.10 Alcohol abuse, uncomplicated; Y90.9 Presence of alcohol in blood, level not specified; E87.6 Hypokalemia; T39.395A Adverse effect of other nonsteroidal anti-inflammatory drugs [NSAID], initial encounter; G47.33 Obstructive sleep apnea (adult) (pediatric); Y90.0 Blood alcohol level of less than 20 mg/100 ml; E86.1 Hypovolemia; F19.10 Other psychoactive substance abuse, uncomplicated; K44.9 Diaphragmatic hernia without obstruction or gangrene; Z82.3 Family history of stroke
CPT/HCPCS: 36415; 71020; 71275; 80048; 80053; 80307; 80320; 82272; 82436; 83605; 83735; 83930; 83935; 84300; 84484; 85014; 85018; 85025; 85379; 85610; 86850; 86900; 86901; 86922; 87077; 87641; 88305; 93005; 93306; A9270-GY; C1751; G0480; J1642; J2250; J2270; J2354; P9016; P9040; Q9967

== ENCOUNTER 2017-03-22 03:19 | Inpatient (IN) | payer SELFPAY ==
[2017-03-22] MEDS ORDERED: NS 0.9% 1000 ML* 1,000 ML IV ONE (03:31)
[2017-03-22 03:50] LABS: Comments Flag Yes; Hematocrit 39 % (42-52); Mean Corpuscular HGB Conc 34 g/dl (31-36); Mean Corpuscular Hemoglobin 33 pg (27-31); Mean Corpuscular Volume 99 fL (80-94); Mean Platelet Volume 10 um3 (7.4-10.4); Red Blood Count 3.93 10^6/ul (4.0-5.4); Red Cell Distribution Width 21 % (10.5-15); White Blood Count 9.3 10^3/ul (3.5-10.8)
[2017-03-22 03:55] LABS: Add Diff/Slide Review? Slide Review Added
[2017-03-22 04:02] LABS: ALT 42 U/L (7-52); AST 79 U/L (13-39); Albumin 4.1 g/dL (3.2-5.2); Alkaline Phosphatase 66 U/L (34-104); Anion Gap 15 mmol/L (2-11); Blood Urea Nitrogen 42 mg/dL (6-24); CO2 Carbon Dioxide 24 mmol/L (22-32); Calcium 10.1 mg/dL (8.6-10.3); Chloride 93 mmol/L (101-111); EGFR African American 98.7 (>60); EGFR Non-African American 76.7 (>60); Globulin 3.1 g/dL (2-4); Glucose 116 mg/dL (70-100); Potassium 3.7 mmol/L (3.5-5.0); Sodium 132 mmol/L (133-145); Total Protein 7.2 g/dL (6.4-8.9)
[2017-03-22 04:06] LABS: Troponin I 0.06 ng/mL (<0.04)
[2017-03-22] MEDS ORDERED: Acetaminophen TAB* 325 MG ONE (04:23)
[2017-03-22] MEDS ORDERED: Acetaminophen TAB* 325 MG PO ONE (04:25)
--- NOTE | 2017-03-22 04:28 | ED ---
Stefanie Talamantes Rebecca, scribed for Josiah Ramirez MD on 03/22/17 at 0338 . Lower Extremity - HPI Summary HPI Summary: Pt is a 56 y/o M BIBA who presents to ED c/o bilateral LE weakness. Sx began suddenly this morning at 0600 and have been constant since onset. Reports that when he tried to stand up, he couldn't walk and that his "legs just couldn't hold up." Reports laying on the floor all day. Per nurse's note, associated pain is currently ranked 8/10, characterized as aching. Sx aggravated and alleviated by nothing. Denies any other symptoms. - History of Current Complaint Chief Complaint: EDWeakness Stated Complaint: WEAKNESS/DIZZINESS Hx Obtained From: Patient Mechanism Of Injury: Unknown Onset of Pain: Prior to Arrival Onset/Duration: Still Present Severity Initially: Moderate Severity Currently: Moderate Pain Intensity: 8 Pain Scale Used: 0-10 Numeric Timing: Constant Location: Is Diffuse - Bilateral LE Character Of Pain: Aching Associated Signs And Symptoms: Positive: Weakness Aggravating Factor(s): Nothing Alleviating Factor(s): Nothing - Allergies/Home Medications Allergies/Adverse Reactions: Allergies Allergy/AdvReac Type Severity Reaction Status Date / Time No Known Allergies Allergy Verified 01/30/17 02:40 PMH/Surg Hx/FS Hx/Imm Hx Endocrine/Hematology History: Denies: Hx Diabetes Cardiovascular History: Denies: Hx Hypertension GI History: Reports: Other GI Disorders - Heme + History: Denies: Hx Renal Disease Infectious Disease History: No Infectious Disease History: Denies: Traveled Outside the [place] in Last 30 Days - Family History Known Family History: Negative: Cardiac Disease - Social History Alcohol Use: Occasionally Hx Substance Use: No Substance Use Type: Reports: None Hx Tobacco Use: No Smoking Status (MU): Never Smoked Tobacco Review of Systems Constitutional: Negative Eyes: Negative ENT: Negative Cardiovascular: Negative Respiratory: Negative Gastrointestinal: Negative Genitourinary: Negative Musculoskeletal: Negative Skin: Negative Positive: Weakness - Bilateral LE weakness All Other Systems Reviewed And Are Negative: Yes Physical Exam Triage Information Reviewed: Yes Vital Signs On Initial Exam: Initial Vitals Temp Pulse Resp BP Pulse Ox 100.9 F 124 18 140/90 98 03/22/17 03:22 03/22/17 03:22 03/22/17 03:22 03/22/17 03:22 03/22/17 03:22 Vital Signs Reviewed: Yes Appearance: Positive: No Pain Distress, Thin Skin: Positive: Warm Head/Face: Positive: Normal Head/Face Inspection Eyes: Positive: CADE ENT: Positive: Hearing grossly normal Neck: Positive: Supple Respiratory/Lung Sounds: Positive: Clear to Auscultation, Breath Sounds Present Cardiovascular: Positive: RRR Abdomen Description: Positive: Nontender, Soft Bowel Sounds: Positive: Present Musculoskeletal: Positive: Strength/ROM Intact Neurological: Positive: Sensory/Motor Intact, Alert, Oriented to Person Place, Time Psychiatric: Positive: Affect/Mood Appropriate Diagnostics - Vital Signs Vital Signs Temp Pulse Resp BP Pulse Ox 03/22/17 03:22 100.9 F 124 18 140/90 98 - Laboratory Lab Results: Lab Results 03/22/17 03/22/17 03/22/17 Range/Units 03:40 03:40 03:40 WBC 9.3 (3.5-10.8) 10^3/ul RBC 3.93 L (4.0-5.4) 10^6/ul Hgb 13.0 L (14.0-18.0) g/dl Hct 39 L (42-52) % MCV 99 H (80-94) fL MCH 33 H (27-31) pg MCHC 34 (31-36) g/dl RDW 21 H (10.5-15) % Plt Count 68 L (150-450) 10^3/ul MPV 10 (7.4-10.4) um3 Neut % (Auto) 84.7 H (38-83) % Lymph % (Auto) 8.4 L (25-47) % [facility] % (Auto) 6.5 (1-9) % Eos % (Auto) 0 (0-6) % Baso % (Auto) 0.4 (0-2) % Absolute Neuts (auto) 7.8 H (1.5-7.7) 10^3/ul Absolute Lymphs (auto) 0.8 L (1.0-4.8) 10^3/ul Absolute Monos (auto) 0.6 (0-0.8) 10^3/ul Absolute Eos (auto) 0 (0-0.6) 10^3/ul Absolute Basos (auto) 0 (0-0.2) 10^3/ul Absolute Nucleated RBC 0.03 10^3/ul Nucleated RBC % 0.3 INR (Anticoag Therapy) 1.06 (0.89-1.11) Sodium 132 L (133-145) mmol/L Potassium 3.7 (3.5-5.0) mmol/L Chloride 93 L (101-111) mmol/L Carbon Dioxide 24 (22-32) mmol/L Anion Gap 15 H (2-11) mmol/L BUN 42 H (6-24) mg/dL Creatinine 1.00 (0.67-1.17) mg/dL Est GFR ( Amer) 98.7 (>60) Est GFR (Non-Af Amer) 76.7 (>60) BUN/Creatinine Ratio 42.0 H (8-20) Glucose 116 H (70-100) mg/dL Lactic Acid (0.5-2.0) mmol/L Calcium 10.1 (8.6-10.3) mg/dL Magnesium 2.0 (1.9-2.7) mg/dL Total Bilirubin 1.30 H (0.2-1.0) mg/dL AST 79 H (13-39) U/L ALT 42 (7-52) U/L Alkaline Phosphatase 66 (34-104) U/L Troponin I 0.06 H* (<0.04) ng/mL Total Protein 7.2 (6.4-8.9) g/dL Albumin 4.1 (3.2-5.2) g/dL Globulin 3.1 (2-4) g/dL Albumin/Globulin Ratio 1.3 (1-3) TSH Pending Serum Alcohol Pending 03/22/17 Range/Units 03:40 WBC (3.5-10.8) 10^3/ul RBC (4.0-5.4) 10^6/ul Hgb (14.0-18.0) g/dl Hct (42-52) % MCV (80-94) fL MCH (27-31) pg MCHC (31-36) g/dl RDW (10.5-15) % Plt Count (150-450) 10^3/ul MPV (7.4-10.4) um3 Neut % (Auto) (38-83) % Lymph % (Auto) (25-47) % [facility] % (Auto) (1-9) % Eos % (Auto) (0-6) % Baso % (Auto) (0-2) % Absolute Neuts (auto) (1.5-7.7) 10^3/ul Absolute Lymphs (auto) (1.0-4.8) 10^3/ul Absolute Monos (auto) (0-0.8) 10^3/ul Absolute Eos (auto) (0-0.6) 10^3/ul Absolute Basos (auto) (0-0.2) 10^3/ul Absolute Nucleated RBC 10^3/ul Nucleated RBC % INR (Anticoag Therapy) (0.89-1.11) Sodium (133-145) mmol/L Potassium (3.5-5.0) mmol/L Chloride (101-111) mmol/L Carbon Dioxide (22-32) mmol/L Anion Gap (2-11) mmol/L BUN (6-24) mg/dL Creatinine (0.67-1.17) mg/dL Est GFR ( Amer) (>60) Est GFR (Non-Af Amer) (>60) BUN/Creatinine Ratio (8-20) Glucose (70-100) mg/dL Lactic Acid 1.4 (0.5-2.0) mmol/L Calcium (8.6-10.3) mg/dL Magnesium (1.9-2.7) mg/dL Total Bilirubin (0.2-1.0) mg/dL AST (13-39) U/L ALT (7-52) U/L Alkaline Phosphatase (34-104) U/L Troponin I (<0.04) ng/mL Total Protein (6.4-8.9) g/dL Albumin (3.2-5.2) g/dL Globulin (2-4) g/dL Albumin/Globulin Ratio (1-3) TSH Serum Alcohol Result Diagrams: 03/22/17 03:40 03/22/17 03:40 Lab Statement: Any lab studies that have been ordered have been reviewed, and results considered in the medical decision making process. - Radiology CXR Radiology Interpretation Completed By: ED Physician - Consistent with COPD - EKG 0401 Cardiac Rate: Tachycardia - 105 bpm EKG Rhythm: Sinus Tachycardia Ectopy: PVCs - occasional PVCs Lower Extremity Course/Dx - Course Assessment/Plan: Pt is a 56 y/o M BIBA who presents to ED c/o bilateral LE weakness since this morning at 0600 (approximately 21 hours) with associated aching pain. Troponin 0.06. Pt will be signed out, pending dispo, awaiting repeat Trop. - Diagnoses Provider Diagnoses: Weakness Discharge - Discharge Plan Condition: Stable Disposition: ADMITTED TO [facility] Discharge Disposition Comment: Signed out to Dr. Peters, pending dispo, awaiting repeat Trop The documentation as recorded by the Stefanie amaro Rebecca accurately reflects the service I personally performed and the decisions made by , Josiah Ramirez MD.
[2017-03-22 04:30] LABS: Alcohol < 10 mg/dL (<10)
[2017-03-22 04:41] LABS: TSH (Thyroid Stimulating Horm) 0.68 mcIU/mL (0.34-5.60)
[2017-03-22 06:41] LABS: Urine Bacteria Absent (Absent); Urine Bilirubin Negative (Negative); Urine Glucose 1+(50 mg/dL) (Negative); Urine Nitrite Negative (Negative)
[2017-03-22] MEDS ORDERED: Ondansetron ODT TAB* 4 MG PO ONE (07:31)
--- NOTE | 2017-03-22 07:32 | RAD ---
INDICATION: Weakness. COMPARISON: Comparison is made with a prior chest x-ray study from our 2016. TECHNIQUE: Dual-energy PA and lateral views of the chest were obtained. FINDINGS: The heart is within normal limits in size. Mediastinal and hilar contours appear within normal limits. There is elevation of the left hemidiaphragm which is unchanged. The lungs are clear. No pleural effusion is seen. IMPRESSION: NO EVIDENCE FOR ACUTE FINDING.
[2017-03-22] MEDS ORDERED: Thiamine IV* 100 MG, Folic Acid IV* 1 MG, Multiple Vitamin IV ADULT* 10 ML in NS 0.9% 1... IV ONE (08:19)
[2017-03-22 08:38] LABS: Creatine Kinase 183 U/L (10-223)
--- NOTE | 2017-03-22 09:05 | RAD ---
HISTORY: Trauma COMPARISONS: None TECHNIQUE: Multiple contiguous axial CT scans were obtained of the head without intravenous contrast. FINDINGS: HEMORRHAGE/INFARCT: There is no hemorrhage or acute infarct. MASSES/SHIFT: There is no mass or shift. EXTRA-AXIAL SPACES: There are no extra-axial fluid collections. SULCI AND VENTRICLES: The sulci and ventricles are normal in size and position for the patient's stated age. CEREBRUM: There are no focal parenchymal abnormalities. BRAINSTEM: There are no focal parenchymal abnormalities. CEREBELLUM: There are no focal parenchymal abnormalities. VESSELS: The vessels are grossly normal. PARANASAL SINUSES: The paranasal sinuses are clear. ORBITS: The orbits are unremarkable. BONES AND SOFT TISSUE: No bone or soft tissue abnormalities are noted. OTHER: None IMPRESSION: NO ACUTE INTRACRANIAL PATHOLOGY.
--- NOTE | 2017-03-22 09:10 | RAD ---
HISTORY: Fall, trauma COMPARISONS: None TECHNIQUE: Multiple contiguous axial CT scans were obtained of the face without intravenous contrast, with coronal and sagittal multiplanar reformations. FINDINGS: BONES: There is no displaced fracture or dislocation. The orbital rim is intact. The zygomatic arch is intact. The pterygoid plates are intact. ORBITS: The globes are round. The optic nerves are symmetric. The extraocular musculature is normal. There is no post septal or intraconal inflammatory change. There is no retrobulbar hematoma. PARANASAL SINUSES: The paranasal sinuses are clear. BRAIN AND SOFT TISSUE: Unremarkable. OTHER: None. IMPRESSION: NO FACIAL FRACTURE
--- NOTE | 2017-03-22 09:11 | RAD ---
HISTORY: Fall, trauma, bilateral leg weakness COMPARISONS: None TECHNIQUE: Multiple contiguous axial CT scans were obtained of the cervical spine without intravenous contrast, with coronal and sagittal multiplanar reformations. FINDINGS: BRAIN: The visualized brain is unremarkable CENTRAL CANAL: Evaluation of the central canal is limited on CT technique, however there is no obvious canalicular mass or epidural hemorrhage. ALIGNMENT: The alignment is normal, without subluxation or dislocation. VERTEBRAL BODIES: The odontoid process is intact. The atlantoaxial intervals are symmetric. The vertebral bodies are normal in attenuation, without fracture. JOINTS: There is minimal uncovertebral and facet hypertrophic change. There is no subluxation or dislocation. MUSCULATURE: Unremarkable INTERVERTEBRAL DISCS: Unremarkable AXIAL IMAGES: There is mild degenerative disc disease and osteoarthritis, without osseous neural foraminal narrowing or central canal stenosis. SOFT TISSUES: The visualized soft tissues of the neck are unremarkable. The prevertebral fat stripe is preserved. OTHER: None. IMPRESSION: MILD DEGENERATIVE CHANGES. NO ACUTE OSSEOUS INJURY TO THE CERVICAL SPINE
[2017-03-22] MEDS ORDERED: Vitamin THERAPEUTIC TAB ONE (10:02)
--- NOTE | 2017-03-22 10:13 | ED ---
Asael Talamantes Auryana, scribed for Rolando Peters MD on 03/22/17 at 0821 . Progress - Progress Note Progress Note: Sign out from Dr. Ramirez to Dr. Peters at 07:00 03/22/17 - pending 2nd troponin and awaiting social work consult at time of sign out. Social work consult finished - states probable need for admission Provider in to see patient at 08:15 56 year old male presents with weakness and trouble ambulating. Patient reports that he recently vomited - no blood in vomit. Discussed social work recommendation to admit patient - patient agrees with plan. Will consult Dr. Starkey for admission. ADMIT HOSPITALIST STABLE. DX WEAKNESS - Results/Orders Results/Orders: Second troponin (06:36) 0.06 Course/Dx - Diagnoses Provider Diagnoses: Weakness - Provider Notifications Discussed Care Of Patient With: DR. STARKEY Time Discussed With Above Provider: 08:18 - agrees to admit The documentation as recorded by the Asael amaro Auryana accurately reflects the service I personally performed and the decisions made by , Rolando Peters MD.
[2017-03-22] MEDS: Folic Acid TAB* 1 MG PO SCH (10:21)
[2017-03-22] MEDS: Vitamin THERAPEUTIC TAB PO SCH (10:21)
[2017-03-22] MEDS: Thiamine TAB* 100 MG TAB PO SCH (10:21)
[2017-03-22] MEDS: Acetaminophen TAB* 325 MG PO PRN (10:57)
--- NOTE | 2017-03-22 12:15 | HP ---
HISTORY AND PHYSICAL: DATE OF ADMISSION: 03/22/17 - ROOM #440 PRIMARY CARE PROVIDER: None. CHIEF COMPLAINT: Unable to walk. HISTORY OF PRESENT ILLNESS: Clint Vuong is a 56-year-old male with history of alcoholism who presented to the hospital after he called the ambulance saying that he is weak and unable to stand. As per EMS report when they arrived to the patient's apartment there were beer cans and bottles throughout the home. The home was not well kempt and the patient was lying on the floor upon arrival to the scene. To me the patient stated that he stopped drinking 2 weeks ago and withdrawal from alcohol had been hard. He denies any losing consciousness or seizures but he stated that he tripped and fell a week ago. Despite that he stated that approximately 3 days ago he drove to get some groceries and he ate approximately 2 days ago. Today, in the morning he stated that he woke up and he decided to lay down and "think about his company." Although patient is oriented x3 his reasoning sometimes does not appear to be all the way cohesive. When he is evaluated in the emergency department he is weak and slightly unsteady on his feet but ambulates steady with a walker. His troponin was noted to be 0.06 but identical reports were noted twice within a 3-hour period. He is going to be admitted for overnight observation with a diagnosis of bilateral leg weakness. PAST MEDICAL HISTORY: 1. History of GI bleed secondary to esophagitis, gastritis with erosions as well as duodenal ulcer that was during the admission of January 2017. 2. Alcohol abuse. MEDICATIONS: None. ALLERGIES: No known drug allergies. FAMILY HISTORY: Positive for mother with history of CVA who at the age of 62. Father with history of cardiac issues and pacer in his 70s who is alive at the age of 85 now. SOCIAL HISTORY: The patient denies tobacco or drug use. She states that he drinks 4 to 8 beers a day. 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 He moved to the area a year ago from [place]. He got 3 years ago. He was unable to name a person as his surrogate that he would choose. REVIEW OF SYSTEMS: The patient is a very poor historian at this point. He stated that although he was driving 3 days ago his leg weakness and problems with gait had been going on for at least 4 days. He stated that he has good appetite and he eats on a daily basis but he usually eats out and he has not gone out for the past 3 days. He is unable to tell me if he remembers what he ate yesterday or the day prior. He denies nausea, vomiting. He denies shortness of breath or chest pain. Other remaining 14 systems were reviewed with the patient and were otherwise negative. The patient stated that his last alcoholic beverage was 2 weeks ago. He has note been to work approximately for 1 week. He fell approximately 1 week ago. He said said that he tripped in his apartment and he fell on his face. He denies losing consciousness. PHYSICAL EXAMINATION GENERAL: The patient is a pleasant 56-year-old male, although oriented x3, he is a poor historian. VITAL SIGNS: Blood pressure of 135/75, heart rate of 108 and regular, respiratory rate 18, oxygen saturation 98% on room air, temperature 100.9. HEENT: Head with ecchymotic periorbital area on the right. Eyes: Extraocular muscles intact. Pupils are equal, reactive to light and accommodation. Oropharynx: Clear. Mucosa moist. NECK: Supple. No JVD, no bruit bilaterally. RESPIRATORY: Clear to auscultation bilaterally. CARDIOVASCULAR: Regular rate and rhythm. No murmur. ABDOMEN: Soft, nontender. Bowel sounds present in all 4 quadrants. EXTREMITIES: There is no edema. Pulses +2 bilaterally. No clubbing or cyanosis. NEUROLOGIC: Cranial nerves II through XII grossly intact. Motor strength is 5/ 5 bilaterally. There are fine tremors noted in bilateral hands. There is no pronator drift. The patient has no dysmetria on evaluation of bilateral upper and lower extremities. His gait is unsteady and wide. He has difficulties rising from chair to standing position and he is able to do it by himself with a walker. He ambulates with a walker with a steady gait. Speech is clear. SKIN: Ecchymotic areas overlying the right side of the face and right orbital area. PSYCHIATRIC EVALUATION: Although patient is oriented x3, he is a vague historian and many of his ways of asking questions and reasoning is not really a cohesive thought process. DIAGNOSTIC STUDIES/LABORATORY DATA: White blood cell count of 9.3, hemoglobin of 13.0, hematocrit of 39, MCV of 99, and platelets of 68. Sodium is 132, potassium 3.0, chloride 90, carbon dioxide 24. Anion gap is 15. BUN 42, creatinine 1.0. Liver function tests showed bilirubin of 1.3, AST of 79, ALT of 42, alkaline phosphatase is 66. Troponin of 0.06 x2. CPK of 183. TSH of 0.68. Urinalysis showed +2 protein, +1 ketones, +1 blood. There were no bacteria on evaluation. Maxillofacial CT, impression: "No facial fracture." C spine, CT impression: "Mild degenerative changes. No acute injury to the cervical spine." Brain CT, impression: "No acute intracranial pathology." Portable chest x-ray, impression: "No evidence of acute findings." The patient's EKG showed normal sinus rhythm with a heart rate of 105 beats per minute with occasional PVC and no significant ST changes. Please also note that the patient's heart rate when he was standing up cristian to 160. ASSESSMENT AND PLAN: As he mentioned, bilateral leg weakness most likely due to generalized deconditioning, most likely problems with nutrition in a patient who just recently decided to stop drinking alcohol. At this point, the patient is going to be placed on multivitamin, thiamine, and folate on a daily basis. If the patient is telling the truth and he stopped drinking 2 weeks ago he should not be undergoing withdrawal and currently he had been several hours in the emergency room and he had not been seen withdrawing. At this point, I do not think he needs to placed to be on benzodiazepines. Physical Therapy, Occupational Therapy as well as Social Work consult is going to be obtained. In regards to patient alcoholism, as mentioned above, I do not think he is going to be withdrawing at this point. I will place patient on thiamine and folate. In regards to dehydration, the patient has orthostasis with increased heart rate when he stands up. He is markedly dehydrated. He is going to be placed on intravenous hydration. The patient had mild elevation of LFTs is most likely due to a alcoholic hepatitis. For DVT prophylaxis, the patient is low risk on ambulation. He is going to be encouraged. In regards to patient's history of recent gastrointestinal bleed due to gastritis and duodenal ulcer, omeprazole twice a day is going to be continued. The patient's code status is full. In regards to patient's mildly elevated troponin, it is not a dynamic change. The patient's troponin continues to be 0.06. I will check it once more. He does not have acute EKG changes, and apart from sinus tachycardia he complains of no chest pain. The patient does have history of elevated troponin of 0.7 when 1-1/2 months ago when he was evaluated for gastrointestinal bleed. At this point, I will trend patient's troponin and continue to telemetry monitored bed. He does need at some point an evaluation with cardiac stress test but I do not believe that right now he is in a good state enough to be able to undergo a cardiac stress test. Please also note the patient's transthoracic echocardiogram obtained a 1-1/2 months ago which showed no abnormalities and normal EF. TIME SPENT: Approximately 65 minutes on admission of this patient, more than half the time was spent [id number] with the patient doing the interview and physical exam. [id number]/[facility] #: [id number] MTDD
[2017-03-22] MEDS: LORazepam TAB(*) 0.5 MG PO PRN ×2 (13:38→18:51)
[2017-03-22] MEDS: NS 0.9% 1000 ML* 1,000 ML IV SCH ×2 (15:12→23:19)
[2017-03-22] MEDS: Omeprazole CAP* 20 MG PO SCH (20:20)
[2017-03-23] MEDS: LORazepam TAB(*) 0.5 MG PO PRN ×5 (00:01→18:37)
[2017-03-23] MEDS ORDERED: Omeprazole CAP* 20 MG PO SCH (06:00)
[2017-03-23 06:01] LABS: Hematocrit 32 % (42-52); Hemoglobin 10.5 g/dl (14.0-18.0); Mean Corpuscular HGB Conc 33 g/dl (31-36); Mean Corpuscular Hemoglobin 33 pg (27-31); Mean Corpuscular Volume 99 fL (80-94); Mean Platelet Volume 10 um3 (7.4-10.4); Red Blood Count 3.17 10^6/ul (4.0-5.4); Red Cell Distribution Width 21 % (10.5-15); White Blood Count 6.4 10^3/ul (3.5-10.8)
[2017-03-23 06:02] LABS: Add Diff/Slide Review? Slide Review Added; Comments Flag Yes
[2017-03-23 06:16] LABS: BUN/Creatinine Ratio 24.6 (8-20); Calcium 8.4 mg/dL (8.6-10.3); EGFR African American 188.8 (>60); EGFR Non-African American 146.8 (>60); Potassium 2.9 mmol/L (3.5-5.0)
[2017-03-23] MEDS ORDERED: Potassium Chlor TAB* 20 MEQ TAB.ER PO ONE (06:50)
[2017-03-23] MEDS: Omeprazole CAP* 20 MG PO SCH ×2 (07:26→21:10)
[2017-03-23] MEDS: NS 0.9% 1000 ML* 1,000 ML IV SCH ×3 (07:26→18:36)
[2017-03-23] MEDS: Vitamin THERAPEUTIC TAB PO SCH (07:26)
[2017-03-23] MEDS: Folic Acid TAB* 1 MG PO SCH (07:26)
[2017-03-23] MEDS: Thiamine TAB* 100 MG TAB PO SCH (07:27)
[2017-03-23] MEDS: Acetaminophen TAB* 325 MG PO PRN ×2 (07:36→18:38)
[2017-03-23 07:58] LABS: Magnesium 1.6 mg/dL (1.9-2.7)
[2017-03-23] MEDS ORDERED: Magnesium Sulfate 2 GM IV* 2 GM/50 ML BAG IVPB ONE (09:18)
--- NOTE | 2017-03-23 09:32 | PN ---
Subjective Date of Service: 03/23/17 Interval History: Pt walked to bathroom with slightly unsteady gait, but overall feels better. Had PVC's and bigeminy on telem, still tachy Objective Active Medications: Acetaminophen (Tylenol Tab*) 650 mg PO Q6H PRN PRN Reason: PAIN Last Admin: 03/23/17 07:36 Dose: 650 mg Folic Acid (Folvite Tab*) 1 mg PO DAILY [facility] Last Admin: 03/23/17 07:26 Dose: 1 mg Sodium Chloride (Ns 0.9% 1000 Ml*) 1,000 mls @ 125 mls/hr IV PER RATE [facility] Last Admin: 03/23/17 07:26 Dose: 125 mls/hr Magnesium Sulfate (Magnesium Sulfate 2 Gm Iv*) 2 gm in 50 mls @ 50 mls/hr IVPB ONCE ONE Stop: 03/23/17 10:17 Lorazepam (Ativan Tab(*)) 0.5 mg PO Q4H PRN PRN Reason: WITHDRAWAL - ALCOHOL Last Admin: 03/23/17 05:43 Dose: 0.5 mg Multivitamins (Theragran Tab*) 1 tab PO DAILY [facility] Last Admin: 03/23/17 07:26 Dose: 1 tab Omeprazole (Prilosec Cap*) 20 mg PO BID [facility] Last Admin: 03/23/17 07:26 Dose: 20 mg Thiamine HCl (Vitamin B-1 Tab*) 100 mg PO DAILY [facility] Last Admin: 03/23/17 07:27 Dose: 100 mg Vital Signs 03/22/17 03/22/17 03/22/17 09:30 09:53 13:15 Temperature 99.5 F Pulse Rate 112 113 Respiratory 21 16 18 Rate Blood Pressure 144/84 136/79 146/83 (mmHg) O2 Sat by Pulse 97 98 Oximetry 03/22/17 03/22/17 03/22/17 13:38 15:12 15:38 Temperature 98.5 F Pulse Rate 96 Respiratory 18 18 16 Rate Blood Pressure 130/76 (mmHg) O2 Sat by Pulse 97 Oximetry 03/22/17 03/22/17 03/22/17 18:51 19:26 20:51 Temperature 98.7 F Pulse Rate 101 Respiratory 18 18 18 Rate Blood Pressure 126/67 (mmHg) O2 Sat by Pulse 96 Oximetry 03/22/17 03/23/1717 23:46 00:01 02:01 Temperature 98.3 F Pulse Rate 86 Respiratory 16 17 17 Rate Blood Pressure 129/73 (mmHg) O2 Sat by Pulse 93 Oximetry 03/23/17 03/23/17 03/23/17 05:43 07:04 07:28 Temperature 99.1 F Pulse Rate 92 Respiratory 19 16 16 Rate Blood Pressure 130/75 (mmHg) O2 Sat by Pulse 98 Oximetry Oxygen Devices in Use Now: None Appearance: 56 yo M in nAD, aAOx3, flat affect Eyes: No Scleral Icterus, PERRLA Ears/Nose/Mouth/Throat: NL Teeth, Lips, Gums, Mucous Membranes Moist Neck: NL Appearance and Movements; NL JVP Respiratory: Symmetrical Chest Expansion and Respiratory Effort, Clear to Auscultation Cardiovascular: RRR, - - tachy Abdominal: NL Sounds; No Tenderness; No Distention, No Hepatosplenomegaly Lymphatic: No Cervical Adenopathy Extremities: No Edema, No Clubbing, Cyanosis Skin: No Rash or Ulcers, No Nodules or Sclerosis Neurological: Alert and Oriented x 3, NL Muscle Strength and Tone Result Diagrams: 03/23/17 05:11 03/23/17 05:11 Additional Lab and Data: Lab Results 03/22/17 03/22/17 03/22/17 Range/Units 03:40 03:40 03:40 WBC 9.3 (3.5-10.8) 10^3/ul RBC 3.93 L (4.0-5.4) 10^6/ul Hgb 13.0 L (14.0-18.0) g/dl Hct 39 L (42-52) % MCV 99 H (80-94) fL MCH 33 H (27-31) pg MCHC 34 (31-36) g/dl RDW 21 H (10.5-15) % Plt Count 68 L (150-450) 10^3/ul MPV 10 (7.4-10.4) um3 Neut % (Auto) 84.7 H (38-83) % Lymph % (Auto) 8.4 L (25-47) % [place] % (Auto) 6.5 (1-9) % Eos % (Auto) 0 (0-6) % Baso % (Auto) 0.4 (0-2) % Absolute Neuts (auto) 7.8 H (1.5-7.7) 10^3/ul Absolute Lymphs (auto) 0.8 L (1.0-4.8) 10^3/ul Absolute Monos (auto) 0.6 (0-0.8) 10^3/ul Absolute Eos (auto) 0 (0-0.6) 10^3/ul Absolute Basos (auto) 0 (0-0.2) 10^3/ul Absolute Nucleated RBC 0.03 10^3/ul Nucleated RBC % 0.3 INR (Anticoag Therapy) 1.06 (0.89-1.11) Sodium 132 L (133-145) mmol/L Potassium 3.7 (3.5-5.0) mmol/L Chloride 93 L (101-111) mmol/L Carbon Dioxide 24 (22-32) mmol/L Anion Gap 15 H (2-11) mmol/L BUN 42 H (6-24) mg/dL Creatinine 1.00 (0.67-1.17) mg/dL Est GFR ( Amer) 98.7 (>60) Est GFR (Non-Af Amer) 76.7 (>60) BUN/Creatinine Ratio 42.0 H (8-20) Glucose 116 H (70-100) mg/dL Lactic Acid (0.5-2.0) mmol/L Calcium 10.1 (8.6-10.3) mg/dL Magnesium 2.0 (1.9-2.7) mg/dL Total Bilirubin 1.30 H (0.2-1.0) mg/dL AST 79 H (13-39) U/L ALT 42 (7-52) U/L Alkaline Phosphatase 66 (34-104) U/L Troponin I 0.06 H* (<0.04) ng/mL Total Protein 7.2 (6.4-8.9) g/dL Albumin 4.1 (3.2-5.2) g/dL Globulin 3.1 (2-4) g/dL Albumin/Globulin Ratio 1.3 (1-3) TSH Pending Serum Alcohol Pending 03/22/17 Range/Units 03:40 WBC (3.5-10.8) 10^3/ul RBC (4.0-5.4) 10^6/ul Hgb (14.0-18.0) g/dl Hct (42-52) % MCV (80-94) fL MCH (27-31) pg MCHC (31-36) g/dl RDW (10.5-15) % Plt Count (150-450) 10^3/ul MPV (7.4-10.4) um3 Neut % (Auto) (38-83) % Lymph % (Auto) (25-47) % [place] % (Auto) (1-9) % Eos % (Auto) (0-6) % Baso % (Auto) (0-2) % Absolute Neuts (auto) (1.5-7.7) 10^3/ul Absolute Lymphs (auto) (1.0-4.8) 10^3/ul Absolute Monos (auto) (0-0.8) 10^3/ul Absolute Eos (auto) (0-0.6) 10^3/ul Absolute Basos (auto) (0-0.2) 10^3/ul Absolute Nucleated RBC 10^3/ul Nucleated RBC % INR (Anticoag Therapy) (0.89-1.11) Sodium (133-145) mmol/L Potassium (3.5-5.0) mmol/L Chloride (101-111) mmol/L Carbon Dioxide (22-32) mmol/L Anion Gap (2-11) mmol/L BUN (6-24) mg/dL Creatinine (0.67-1.17) mg/dL Est GFR ( Amer) (>60) Est GFR (Non-Af Amer) (>60) BUN/Creatinine Ratio (8-20) Glucose (70-100) mg/dL Lactic Acid 1.4 (0.5-2.0) mmol/L Calcium (8.6-10.3) mg/dL Magnesium (1.9-2.7) mg/dL Total Bilirubin (0.2-1.0) mg/dL AST (13-39) U/L ALT (7-52) U/L Alkaline Phosphatase (34-104) U/L Troponin I (<0.04) ng/mL Total Protein (6.4-8.9) g/dL Albumin (3.2-5.2) g/dL Globulin (2-4) g/dL Albumin/Globulin Ratio (1-3) TSH Serum Alcohol Assess/Plan/Problems-Billing Assessment: 56 yo M alcoholic with h/o recent (01/26) GI bleed due to gastritis and duodenal bleed presents with c/o b/l leg weakness. Found disheveled on the floor when EMS arrived. Stopped ETOH 2 weeks ago - Patient Problems (1) Alcohol abuse Comment: Cont Ativan prn, although today no signs of withdrawal Folate, thiamine SW consult to be cont (2) Elevated troponin I level Comment: TTE in 01/26 showed normal EF recommend outpatient stress troponin " flat " at 0.05, 0.06 (3) Electrolyte abnormality Comment: replacing K and Mg PVC's and bigeminy likely due to hypomagnezemia and hypokalemia. cont telem. (4) Duodenal ulcer Comment: cont PPI (5) Dehydration Comment: cont IVF, still tachycardic (6) Muscular deconditioning Comment: unsteady gait due to deconditioning and alcoholism cont PT cont MVI (7) DVT prophylaxis Comment: SCDs, ambulation No anticoagulants in face of recent bleed 2 months ago Status and Disposition: OBV will be changed to inpatient due to hypomagnezemia, hypokalemia, dehydration
[2017-03-24 07:16] LABS: BUN/Creatinine Ratio 14.5 (8-20); Calcium 8.6 mg/dL (8.6-10.3); EGFR African American 196.8 (>60); Magnesium 1.5 mg/dL (1.9-2.7); Potassium 3.3 mmol/L (3.5-5.0)
[2017-03-24] MEDS ORDERED: Potassium Chlor TAB* 20 MEQ TAB.ER PO ONE (07:20)
[2017-03-24] MEDS: Omeprazole CAP* 20 MG PO SCH ×2 (08:03→20:33)
[2017-03-24] MEDS: Thiamine TAB* 100 MG TAB PO SCH (08:03)
[2017-03-24] MEDS: Vitamin THERAPEUTIC TAB PO SCH (08:04)
[2017-03-24] MEDS: Folic Acid TAB* 1 MG PO SCH (08:04)
[2017-03-24] MEDS: Acetaminophen TAB* 325 MG PO PRN ×2 (08:12→20:33)
[2017-03-24] MEDS ORDERED: Magnesium Oxide TAB* 400 MG PO SCH (09:00)
[2017-03-24] MEDS: Metoprolol Tartrate TAB* 25 MG PO SCH ×2 (11:54→20:31)
[2017-03-24] MEDS: LORazepam TAB(*) 0.5 MG PO PRN ×2 (12:05→20:37)
[2017-03-24] MEDS: NS 0.9% 1000 ML* 1,000 ML IV SCH ×2 (12:05→21:04)
--- NOTE | 2017-03-24 13:05 | PN ---
Subjective Date of Service: 03/24/17 Interval History: pt cont to c/o feeling dizzy when standing up, but ambulates with a walker well Objective Active Medications: Acetaminophen (Tylenol Tab*) 650 mg PO Q6H PRN PRN Reason: PAIN Last Admin: 03/24/17 08:12 Dose: 650 mg Folic Acid (Folvite Tab*) 1 mg PO DAILY [facility] Last Admin: 03/24/17 08:04 Dose: 1 mg Magnesium Sulfate 3 gm/ Sodium (Chloride) 106 mls @ 53 mls/hr IVPB ONCE ONE Stop: 03/24/17 12:59 Last Admin: 03/24/17 11:55 Dose: 53 mls/hr Sodium Chloride (Ns 0.9% 1000 Ml*) 1,000 mls @ 150 mls/hr IV PER RATE [facility] Last Admin: 03/24/17 12:05 Dose: 150 mls/hr Lorazepam (Ativan Tab(*)) 0.5 mg PO Q6H PRN PRN Reason: ANXIETY Last Admin: 03/24/17 12:05 Dose: 0.5 mg Magnesium Oxide (Magox 400 Tab*) 800 mg PO DAILY [facility] Last Admin: 03/24/17 08:03 Dose: 800 mg Metoprolol Tartrate (Lopressor Tab*) 12.5 mg PO Q12HR [facility] Last Admin: 03/24/17 11:54 Dose: 12.5 mg Multivitamins (Theragran Tab*) 1 tab PO DAILY [facility] Last Admin: 03/24/17 08:04 Dose: 1 tab Omeprazole (Prilosec Cap*) 20 mg PO BID [facility] Last Admin: 03/24/17 08:03 Dose: 20 mg Thiamine HCl (Vitamin B-1 Tab*) 100 mg PO DAILY [facility] Last Admin: 03/24/17 08:03 Dose: 100 mg Vital Signs 03/23/17 03/23/17 03/23/17 14:59 18:37 19:16 Temperature 99.1 F Pulse Rate 95 Respiratory 18 18 16 Rate Blood Pressure 108/62 (mmHg) O2 Sat by Pulse 99 Oximetry 03/23/17 03/23/17 03/23/17 19:23 20:37 22:37 Temperature 98.0 F Pulse Rate 107 Respiratory 28 16 16 Rate Blood Pressure 131/75 (mmHg) O2 Sat by Pulse 98 Oximetry 03/23/17 03/24/17 03/24/17 23:38 03:17 07:24 Temperature 98.6 F 98.7 F 99.5 F Pulse Rate 103 90 89 Respiratory 16 16 18 Rate Blood Pressure 148/93 121/78 123/86 (mmHg) O2 Sat by Pulse 99 98 99 Oximetry 03/24/17 03/24/17 03/24/17 08:00 11:25 12:05 Temperature 98.7 F Pulse Rate 97 Respiratory 16 18 18 Rate Blood Pressure 120/78 (mmHg) O2 Sat by Pulse 100 Oximetry Oxygen Devices in Use Now: None Appearance: 56 yo M in NAd, AAOx3 Eyes: No Scleral Icterus, PERRLA Ears/Nose/Mouth/Throat: NL Teeth, Lips, Gums, Mucous Membranes Moist Neck: NL Appearance and Movements; NL JVP, Trachea Midline Respiratory: Symmetrical Chest Expansion and Respiratory Effort, Clear to Auscultation Cardiovascular: NL Sounds; No Murmurs; No JVD, RRR Abdominal: NL Sounds; No Tenderness; No Distention, No Hepatosplenomegaly Lymphatic: No Cervical Adenopathy Extremities: No Edema, No Clubbing, Cyanosis Skin: No Nodules or Sclerosis, - - abrasions on b/l knees Neurological: Alert and Oriented x 3, NL Muscle Strength and Tone, - - notable muscle wasting throughout Result Diagrams: 03/23/17 05:11 03/24/17 06:48 Additional Lab and Data: Lab Results 03/22/17 03/22/17 03/22/17 Range/Units 03:40 03:40 03:40 WBC 9.3 (3.5-10.8) 10^3/ul RBC 3.93 L (4.0-5.4) 10^6/ul Hgb 13.0 L (14.0-18.0) g/dl Hct 39 L (42-52) % MCV 99 H (80-94) fL MCH 33 H (27-31) pg MCHC 34 (31-36) g/dl RDW 21 H (10.5-15) % Plt Count 68 L (150-450) 10^3/ul MPV 10 (7.4-10.4) um3 Neut % (Auto) 84.7 H (38-83) % Lymph % (Auto) 8.4 L (25-47) % [place] % (Auto) 6.5 (1-9) % Eos % (Auto) 0 (0-6) % Baso % (Auto) 0.4 (0-2) % Absolute Neuts (auto) 7.8 H (1.5-7.7) 10^3/ul Absolute Lymphs (auto) 0.8 L (1.0-4.8) 10^3/ul Absolute Monos (auto) 0.6 (0-0.8) 10^3/ul Absolute Eos (auto) 0 (0-0.6) 10^3/ul Absolute Basos (auto) 0 (0-0.2) 10^3/ul Absolute Nucleated RBC 0.03 10^3/ul Nucleated RBC % 0.3 INR (Anticoag Therapy) 1.06 (0.89-1.11) Sodium 132 L (133-145) mmol/L Potassium 3.7 (3.5-5.0) mmol/L Chloride 93 L (101-111) mmol/L Carbon Dioxide 24 (22-32) mmol/L Anion Gap 15 H (2-11) mmol/L BUN 42 H (6-24) mg/dL Creatinine 1.00 (0.67-1.17) mg/dL Est GFR ( Amer) 98.7 (>60) Est GFR (Non-Af Amer) 76.7 (>60) BUN/Creatinine Ratio 42.0 H (8-20) Glucose 116 H (70-100) mg/dL Lactic Acid (0.5-2.0) mmol/L Calcium 10.1 (8.6-10.3) mg/dL Magnesium 2.0 (1.9-2.7) mg/dL Total Bilirubin 1.30 H (0.2-1.0) mg/dL AST 79 H (13-39) U/L ALT 42 (7-52) U/L Alkaline Phosphatase 66 (34-104) U/L Troponin I 0.06 H* (<0.04) ng/mL Total Protein 7.2 (6.4-8.9) g/dL Albumin 4.1 (3.2-5.2) g/dL Globulin 3.1 (2-4) g/dL Albumin/Globulin Ratio 1.3 (1-3) TSH Pending Serum Alcohol Pending 03/22/17 Range/Units 03:40 WBC (3.5-10.8) 10^3/ul RBC (4.0-5.4) 10^6/ul Hgb (14.0-18.0) g/dl Hct (42-52) % MCV (80-94) fL MCH (27-31) pg MCHC (31-36) g/dl RDW (10.5-15) % Plt Count (150-450) 10^3/ul MPV (7.4-10.4) um3 Neut % (Auto) (38-83) % Lymph % (Auto) (25-47) % [place] % (Auto) (1-9) % Eos % (Auto) (0-6) % Baso % (Auto) (0-2) % Absolute Neuts (auto) (1.5-7.7) 10^3/ul Absolute Lymphs (auto) (1.0-4.8) 10^3/ul Absolute Monos (auto) (0-0.8) 10^3/ul Absolute Eos (auto) (0-0.6) 10^3/ul Absolute Basos (auto) (0-0.2) 10^3/ul Absolute Nucleated RBC 10^3/ul Nucleated RBC % INR (Anticoag Therapy) (0.89-1.11) Sodium (133-145) mmol/L Potassium (3.5-5.0) mmol/L Chloride (101-111) mmol/L Carbon Dioxide (22-32) mmol/L Anion Gap (2-11) mmol/L BUN (6-24) mg/dL Creatinine (0.67-1.17) mg/dL Est GFR ( Amer) (>60) Est GFR (Non-Af Amer) (>60) BUN/Creatinine Ratio (8-20) Glucose (70-100) mg/dL Lactic Acid 1.4 (0.5-2.0) mmol/L Calcium (8.6-10.3) mg/dL Magnesium (1.9-2.7) mg/dL Total Bilirubin (0.2-1.0) mg/dL AST (13-39) U/L ALT (7-52) U/L Alkaline Phosphatase (34-104) U/L Troponin I (<0.04) ng/mL Total Protein (6.4-8.9) g/dL Albumin (3.2-5.2) g/dL Globulin (2-4) g/dL Albumin/Globulin Ratio (1-3) TSH Serum Alcohol Assess/Plan/Problems-Billing Assessment: 56 yo M alcoholic with h/o recent (01/26) GI bleed due to gastritis and duodenal bleed presents with c/o b/l leg weakness. Found disheveled on the floor when EMS arrived. Stopped ETOH 2 weeks ago - Patient Problems (1) Alcohol abuse Comment: Cont Ativan prn anxiety no withdrawal Folate, thiamine SW consult to be cont (2) Elevated troponin I level Comment: TTE in 01/26 showed normal EF, but continues to be tachycardic, will re-check echo recommend outpatient stress troponin " flat " at 0.05, 0.06 (3) Electrolyte abnormality Comment: replacing K and Mg PVC's and bigeminy likely due to hypomagnesemia and hypokalemia. cont telem. (4) Duodenal ulcer Comment: cont PPI (5) Dehydration Comment: cont IVF, still tachycardic (6) Muscular deconditioning Comment: unsteady gait due to deconditioning and alcoholism cont PT, suspect will need STR cont MVI (7) DVT prophylaxis Comment: SCDs, ambulation No anticoagulants in face of recent bleed 2 months ago Status and Disposition: Inpatient
[2017-03-24] MEDS: Magnesium Oxide TAB* 400 MG PO SCH (20:33)
[2017-03-25] MEDS: NS 0.9% 1000 ML* 1,000 ML IV SCH ×3 (03:32→19:43)
[2017-03-25 05:05] LABS: BUN/Creatinine Ratio 15.1 (8-20); Calcium 8.9 mg/dL (8.6-10.3); EGFR African American 205.4 (>60); EGFR Non-African American 159.7 (>60); Magnesium 1.7 mg/dL (1.9-2.7); Potassium 3.6 mmol/L (3.5-5.0)
[2017-03-25] MEDS: Folic Acid TAB* 1 MG PO SCH (08:39)
[2017-03-25] MEDS: Vitamin THERAPEUTIC TAB PO SCH (08:39)
[2017-03-25] MEDS: Metoprolol Tartrate TAB* 25 MG PO SCH ×2 (08:39→19:49)
[2017-03-25] MEDS: Omeprazole CAP* 20 MG PO SCH ×2 (08:39→19:53)
[2017-03-25] MEDS: Thiamine TAB* 100 MG TAB PO SCH (08:39)
[2017-03-25] MEDS: Magnesium Oxide TAB* 400 MG PO SCH ×2 (08:40→19:49)
[2017-03-25] MEDS: LORazepam TAB(*) 0.5 MG PO PRN (08:42)
[2017-03-25] MEDS ORDERED: Magnesium Sulfate 1 GM IV* 1 GM/100 ML BAG IV ONE (09:12)
--- NOTE | 2017-03-25 09:47 | PN ---
Subjective Date of Service: 03/25/17 Interval History: Pt feels better today, less dizzy. On telem still in sinus tachy Objective Active Medications: Acetaminophen (Tylenol Tab*) 650 mg PO Q6H PRN PRN Reason: PAIN Last Admin: 03/24/17 20:33 Dose: 650 mg Folic Acid (Folvite Tab*) 1 mg PO DAILY [facility] Last Admin: 03/25/17 08:39 Dose: 1 mg Magnesium Sulfate/Dextrose (Magnesium Sulfate 1 Gm Iv*) 1 gm in 100 mls @ 200 mls/hr IV ONCE ONE Stop: 03/25/17 09:41 Sodium Chloride (Ns 0.9% 1000 Ml*) 1,000 mls @ 150 mls/hr IV PER RATE [facility] Stop: 03/25/17 21:00 Lorazepam (Ativan Tab(*)) 0.5 mg PO Q6H PRN PRN Reason: ANXIETY Last Admin: 03/25/17 08:42 Dose: 0.5 mg Magnesium Oxide (Magox 400 Tab*) 800 mg PO BID [facility] Last Admin: 03/25/17 08:40 Dose: 800 mg Metoprolol Tartrate (Lopressor Tab*) 12.5 mg PO Q12HR [facility] Last Admin: 03/25/17 08:39 Dose: 12.5 mg Multivitamins (Theragran Tab*) 1 tab PO DAILY [facility] Last Admin: 03/25/17 08:39 Dose: 1 tab Omeprazole (Prilosec Cap*) 20 mg PO BID [facility] Last Admin: 03/25/17 08:39 Dose: 20 mg Thiamine HCl (Vitamin B-1 Tab*) 100 mg PO DAILY [facility] Last Admin: 03/25/17 08:39 Dose: 100 mg Vital Signs 03/24/17 03/24/17 03/24/17 11:25 12:05 14:05 Temperature 98.7 F Pulse Rate 97 Respiratory 18 18 18 Rate Blood Pressure 120/78 (mmHg) O2 Sat by Pulse 100 Oximetry 03/24/17 03/24/17 03/24/17 15:22 19:27 20:00 Temperature 98.2 F 99.3 F Pulse Rate 103 92 Respiratory 18 20 18 Rate Blood Pressure 103/72 111/70 (mmHg) O2 Sat by Pulse 98 98 Oximetry 03/24/17 03/24/17 03/24/17 20:37 22:37 23:43 Temperature 99.1 F Pulse Rate 84 Respiratory 20 16 16 Rate Blood Pressure 114/74 (mmHg) O2 Sat by Pulse 97 Oximetry 03/25/17 03/25/17 03/25/17 04:05 07:50 08:42 Temperature 99.1 F 98.5 F Pulse Rate 92 81 Respiratory 16 16 20 Rate Blood Pressure 122/79 128/80 (mmHg) O2 Sat by Pulse 99 97 Oximetry Oxygen Devices in Use Now: None Appearance: 56 yo M in nAd, AAOx3 Eyes: No Scleral Icterus, PERRLA Ears/Nose/Mouth/Throat: NL Teeth, Lips, Gums, Mucous Membranes Moist Neck: NL Appearance and Movements; NL JVP, Trachea Midline Respiratory: Symmetrical Chest Expansion and Respiratory Effort, Clear to Auscultation Cardiovascular: NL Sounds; No Murmurs; No JVD, RRR Abdominal: NL Sounds; No Tenderness; No Distention, No Hepatosplenomegaly Lymphatic: No Cervical Adenopathy Extremities: No Edema, No Clubbing, Cyanosis Skin: No Nodules or Sclerosis, - - abrasions on knees Neurological: Alert and Oriented x 3, NL Muscle Strength and Tone, - - generalized muscle wasting Result Diagrams: 03/23/17 05:11 03/25/17 04:26 Additional Lab and Data: Lab Results 03/22/17 03/22/17 03/22/17 Range/Units 03:40 03:40 03:40 WBC 9.3 (3.5-10.8) 10^3/ul RBC 3.93 L (4.0-5.4) 10^6/ul Hgb 13.0 L (14.0-18.0) g/dl Hct 39 L (42-52) % MCV 99 H (80-94) fL MCH 33 H (27-31) pg MCHC 34 (31-36) g/dl RDW 21 H (10.5-15) % Plt Count 68 L (150-450) 10^3/ul MPV 10 (7.4-10.4) um3 Neut % (Auto) 84.7 H (38-83) % Lymph % (Auto) 8.4 L (25-47) % [place] % (Auto) 6.5 (1-9) % Eos % (Auto) 0 (0-6) % Baso % (Auto) 0.4 (0-2) % Absolute Neuts (auto) 7.8 H (1.5-7.7) 10^3/ul Absolute Lymphs (auto) 0.8 L (1.0-4.8) 10^3/ul Absolute Monos (auto) 0.6 (0-0.8) 10^3/ul Absolute Eos (auto) 0 (0-0.6) 10^3/ul Absolute Basos (auto) 0 (0-0.2) 10^3/ul Absolute Nucleated RBC 0.03 10^3/ul Nucleated RBC % 0.3 INR (Anticoag Therapy) 1.06 (0.89-1.11) Sodium 132 L (133-145) mmol/L Potassium 3.7 (3.5-5.0) mmol/L Chloride 93 L (101-111) mmol/L Carbon Dioxide 24 (22-32) mmol/L Anion Gap 15 H (2-11) mmol/L BUN 42 H (6-24) mg/dL Creatinine 1.00 (0.67-1.17) mg/dL Est GFR ( Amer) 98.7 (>60) Est GFR (Non-Af Amer) 76.7 (>60) BUN/Creatinine Ratio 42.0 H (8-20) Glucose 116 H (70-100) mg/dL Lactic Acid (0.5-2.0) mmol/L Calcium 10.1 (8.6-10.3) mg/dL Magnesium 2.0 (1.9-2.7) mg/dL Total Bilirubin 1.30 H (0.2-1.0) mg/dL AST 79 H (13-39) U/L ALT 42 (7-52) U/L Alkaline Phosphatase 66 (34-104) U/L Troponin I 0.06 H* (<0.04) ng/mL Total Protein 7.2 (6.4-8.9) g/dL Albumin 4.1 (3.2-5.2) g/dL Globulin 3.1 (2-4) g/dL Albumin/Globulin Ratio 1.3 (1-3) TSH Pending Serum Alcohol Pending 03/22/17 Range/Units 03:40 WBC (3.5-10.8) 10^3/ul RBC (4.0-5.4) 10^6/ul Hgb (14.0-18.0) g/dl Hct (42-52) % MCV (80-94) fL MCH (27-31) pg MCHC (31-36) g/dl RDW (10.5-15) % Plt Count (150-450) 10^3/ul MPV (7.4-10.4) um3 Neut % (Auto) (38-83) % Lymph % (Auto) (25-47) % [place] % (Auto) (1-9) % Eos % (Auto) (0-6) % Baso % (Auto) (0-2) % Absolute Neuts (auto) (1.5-7.7) 10^3/ul Absolute Lymphs (auto) (1.0-4.8) 10^3/ul Absolute Monos (auto) (0-0.8) 10^3/ul Absolute Eos (auto) (0-0.6) 10^3/ul Absolute Basos (auto) (0-0.2) 10^3/ul Absolute Nucleated RBC 10^3/ul Nucleated RBC % INR (Anticoag Therapy) (0.89-1.11) Sodium (133-145) mmol/L Potassium (3.5-5.0) mmol/L Chloride (101-111) mmol/L Carbon Dioxide (22-32) mmol/L Anion Gap (2-11) mmol/L BUN (6-24) mg/dL Creatinine (0.67-1.17) mg/dL Est GFR ( Amer) (>60) Est GFR (Non-Af Amer) (>60) BUN/Creatinine Ratio (8-20) Glucose (70-100) mg/dL Lactic Acid 1.4 (0.5-2.0) mmol/L Calcium (8.6-10.3) mg/dL Magnesium (1.9-2.7) mg/dL Total Bilirubin (0.2-1.0) mg/dL AST (13-39) U/L ALT (7-52) U/L Alkaline Phosphatase (34-104) U/L Troponin I (<0.04) ng/mL Total Protein (6.4-8.9) g/dL Albumin (3.2-5.2) g/dL Globulin (2-4) g/dL Albumin/Globulin Ratio (1-3) TSH Serum Alcohol Assess/Plan/Problems-Billing Assessment: 56 yo M alcoholic with h/o recent (01/26) GI bleed due to gastritis and duodenal bleed presents with c/o b/l leg weakness. Found disheveled on the floor when EMS arrived. Stopped ETOH 2 weeks ago - Patient Problems (1) Alcohol abuse Comment: Cont Ativan prn anxiety no withdrawal Folate, thiamine SW consult to be cont (2) Elevated troponin I level Comment: TTE in 01/26 showed normal EF, but continues to be tachycardic, will re-check echo started low dose lopressor on 03/24/17 recommend outpatient stress troponin " flat " at 0.05, 0.06 (3) Electrolyte abnormality Comment: replacing K and Mg PVC's and bigeminy likely due to hypomagnesemia and hypokalemia. cont telem. (4) Duodenal ulcer Comment: cont PPI (5) Dehydration Comment: cont IVF, still tachycardic (6) Muscular deconditioning Comment: unsteady gait due to deconditioning and alcoholism cont PT, suspect will need STR cont MVI (7) DVT prophylaxis Comment: SCDs, ambulation No anticoagulants in face of recent bleed 2 months ago Status and Disposition: Inpatient
[2017-03-25] MEDS: Acetaminophen TAB* 325 MG PO PRN ×2 (10:16→19:48)
[2017-03-26] MEDS: Acetaminophen TAB* 325 MG PO PRN (07:35)
[2017-03-26] MEDS: LORazepam TAB(*) 0.5 MG PO PRN (07:35)
[2017-03-26] MEDS: Folic Acid TAB* 1 MG PO SCH (07:36)
[2017-03-26] MEDS: Magnesium Oxide TAB* 400 MG PO SCH (07:36)
[2017-03-26] MEDS: Metoprolol Tartrate TAB* 25 MG PO SCH (07:36)
[2017-03-26] MEDS: Omeprazole CAP* 20 MG PO SCH (07:36)
[2017-03-26] MEDS: Vitamin THERAPEUTIC TAB PO SCH (07:36)
[2017-03-26] MEDS: Thiamine TAB* 100 MG TAB PO SCH (07:36)
[2017-03-26] MEDS ORDERED: Magnesium Sulfate 2 GM IV* 2 GM/50 ML BAG IVPB ONE (07:45)
[2017-03-26 09:38] LABS: Calcium 9.8 mg/dL (8.6-10.3); EGFR Non-African American 115.8 (>60); Magnesium 1.7 mg/dL (1.9-2.7); Potassium 3.5 mmol/L (3.5-5.0)
--- NOTE | 2017-03-26 11:32 | ECHO ---
Patient: FLORENCIO RAO [facility] Rec#: [id number] : 1960 Date: 03/26/2017 Age: 56y Height: 185 cm / 72.8 in Weight: 69 kg / 152.1 lbs Sex: M BSA: 1.9 Room#: 440 Admit Date#: 03/23/2017 Type: Inpatient Referring: Aileen Starkey MD Reading: Edis Fleming MD Back Up Worker: Betsey Jenkins RN RDCS Transthoracic Echocardiogram Indication: Tachycardia, elevated troponin levels BP: 117/74 HR: 80 Rhythm: NSR with PVCs Findings History: ETOH use, GI bleed Technical Comments: The study is technically limited due to poor acoustic windows. The study is technically limited due to patient body habitus. Completed at 0920. Left Ventricle: The left ventricular chamber size is normal. Mild concentric left ventricular hypertrophy is observed. There is global hypokinesis of the left ventricle with minor regional variation. Left ventricular systolic function is at the lower limits of normal. The estimated ejection fraction is 50-55%. There is septal flattening of the interventricular septum consistent with right ventricular volume or pressure overload. The assessment of diastolic function is non-diagnostic. Left Atrium: The left atrial chamber size is normal. Right Ventricle: The right ventricle is mildly dilated. The right ventricular global systolic function is mildly to moderately reduced. Right Atrium: The right atrial cavity size is normal. Aortic Valve: The aortic valve is trileaflet. The aortic valve leaflets are mildly thickened. There is aortic annular calcification. There is no evidence of aortic regurgitation. There is no evidence of aortic stenosis. Mitral Valve: The mitral valve leaflets are mildly thickened. There is mild mitral regurgitation. There is no evidence of mitral stenosis. Tricuspid Valve: The tricuspid valve leaflets are normal. There is mild tricuspid regurgitation. Unable to estimate the right ventricular systolic pressure. Pulmonic Valve: The pulmonic valve appears normal. There is a trace pulmonic regurgitation. There is no pulmonic stenosis. Pericardium: There is no significant pericardial effusion. Aorta: There is no dilatation of the ascending aorta. There is no dilatation of the aortic arch. There is no dilation of the aortic root. Pulmonary Artery: The main pulmonary artery is not well visualized. Venous: The venous system is not well visualized. The inferior vena cava is not visualized. Summary: There are no significant changes when compared to the previous study done on 01/31/17 Conclusions Mild concentric left ventricular hypertrophy is observed. Left ventricular systolic function is at the lower limits of normal. The estimated ejection fraction is 50-55%. There is septal flattening of the interventricular septum consistent with right ventricular volume or pressure overload. The right ventricle is mildly dilated. The right ventricular global systolic function is mildly to moderately reduced. The aortic valve leaflets are mildly thickened. There is no evidence of aortic regurgitation. There is mild mitral regurgitation. There is mild tricuspid regurgitation. Unable to estimate the right ventricular systolic pressure. There is no significant pericardial effusion. There are no significant changes when compared to the previous study done on 01/31/17 Measurements Name Value Normal Range RVDdMajor (2D) 4.9 cm (2.2 - 4.4) RAd ISD 4CH 4.2 cm (3.4 - 4.9) RA (A4C)W 3.8 cm (2.9 - 4.6) IVSd (2D) 1.2 cm (0.6 - 1) LVPWd (2D) 1.2 cm (0.6 - 1) LVIDd (2D) 5.2 cm (3.6 - 5.4) LVIDs (2D) 2.9 cm - LV FS (2D) 44 % (25 - 45) Aortic Annulus 2.3 cm (1.4 - 2.6) Ao root diameter (2D) 3.4 cm (2.1 - 3.5) Ascending Ao 2.7 cm (2.1 - 3.4) Aortic arch 2.7 cm (1.8 - 3.4) LA dimension (AP) 2D 2.7 cm (2.3 - 3.8) LAd ISD 4CH 3.7 cm (2.9 - 5.3) LA ISD 4CH W 3.4 cm (2.5 - 4.5) Name Value Normal Range MV E-wave Vmax 0.61 m/sec - MV deceleration time 211 msec - MV A-wave Vmax 0.48 m/sec - MV E:A ratio 1.3 ratio - LV septal e' Vmax 0.05 m/sec - LV E:e' septal ratio 12.2 ratio - Name Value Normal Range AV Vmax 1.5 m/sec - AV VTI 30 cm - AV peak gradient 9.2 mmHg - AV mean gradient 4.8 mmHg - LVOT Vmax 0.73 m/sec - LVOT VTI 15.4 cm - BRYANNA Vmax 0.52 m/sec - Name Value Normal Range PV Vmax 0.59 m/sec -
[2017-03-26 12:44] VITALS: BP 116/68
--- NOTE | 2017-03-26 23:33 | DS ---
CONTINUATION ADDENDUM NOW INCLUDED ON THIS REPORT DISCHARGE SUMMARY: DATE OF ADMISSION: 03/22/17 DATE OF DISCHARGE: 03/26/17 PRIMARY CARE PHYSICIAN: None. DISCHARGE DIAGNOSES: 1. Bilateral lower extremity weakness due to muscular deconditioning as well as dehydration in the patient with history of alcohol use. 2. Troponin level 0.05, which most likely is the patient's baseline with unremarkable echocardiogram. 3. Severe hypomagnesemia. 4. Dehydration. SECONDARY DIAGNOSES: 1. History of alcoholism. 2. History of recent diagnosis in January of duodenal ulcer and upper GI bleed secondary to that of anemia. MEDICATIONS AT DISCHARGE: Include: 1. Ferrous sulfate 325 mg b.i.d. 2. Folic acid 1 mg daily. 3. Mag-Ox 800 mg p.o. b.i.d. for a total of 7 days. 4. Metoprolol tartrate 12.5 mg b.i.d. 5. Omeprazole 20 mg b.i.d. 6. Vitamin B1, thiamine 100 mg daily. LABORATORY DATA: Performed during the hospital stay included: On 03/23/17, white blood cell count 6.4, hemoglobin 10.5, hematocrit 32, and platelets of 65, 000. On 03/26/17, sodium 136, potassium 2.5, chloride 100, carbon dioxide 26, BUN 7, creatinine 0.7, magnesium of 1.7. Troponins throughout the patient's hospital stay was 0.05 and 0.06. Transthoracic echocardiogram obtained on 03/26/17 showed marked concentric LVH with EF of 50% to 55% with septal flattening of the interventricular septum consistent with right ventricular volume or pressure overload. Right ventricle mildly dilated. The global right ventricular systolic function mildly to moderately reduced. There were no significant changes between this echocardiogram and echo obtained in January 2017. During the hospital stay, the patient was evaluated by physical therapy, occupational therapy and social work. HOSPITALIZATION COURSE: Mr. Vuong is a 56-year-old male with history of alcoholism and admission in January 2017 for duodenal ulcer and GI bleed. CONTINUATION ADDENDUM: HOSPITALIZATION COURSE: The patient was evaluated by Physical Therapy, Occupational Therapy, and Social Work. He was deemed to be a good candidate for outpatient Alcoholic Anonymous meetings for which he agreed. He was not interested in inpatient alcohol rehab. In regards to his bilateral leg weakness, it was due to muscular deconditioning , dehydration, and alcoholism. Once the patient was placed on intravenous dehydration, ate well for a couple of days and his magnesium and potassium were replaced, the patient was able to ambulate and by the end of his hospital stay, he ambulated without support and had no problems with using stairs. The patient was markedly dehydrated and hypomagnesemic and due to that, he was tachycardic. Due to that, a repeat transthoracic echocardiogram was performed, which showed no change from prior documented January 2017 and basically low normal EF. The patient was continued of his outpatient beta-vipul with good results. Once his hypomagnesemia and dehydration started resolving, his heart rate was much better controlled. By the time of discharge, it auscultated between 80 to 100 beats per minute and the patient continued to be in sinus rhythm on telemetry monitored bed. Due to his history of GI bleed, he was continued on his omeprazole. He was also started on p.o. magnesium supplement. The patient had mild withdrawal symptoms that may have been due to anxiety at the beginning of admission, but later on he did not require any anxiolytics. In addition, he is asked to see primary care physician of his choice for followup. PHYSICAL EXAMINATION: At the time discharge, blood pressure of 124/77, heart rate of 88 and regular, respiratory rate of 16, oxygen saturation 99% on room air, temperature 98.8. General: The patient is a very pleasant 56-year-old male who is in no acute distress. Alert, awake, and oriented x3. HEENT: Head atraumatic, normocephalic. Eyes: Pupils equal, round, reactive to light and accommodation. Oropharynx clear. Mucosa moist. Neck: Supple. No JVD. No bruits bilaterally. Cardiovascular: Regular rate and rhythm. No murmurs. Respiratory: Clear to auscultation bilaterally. Abdomen: Soft and nontender. Bowel sounds present in all 4 quadrants. Extremities: There is no edema. Pulses present 2+ bilaterally. No clubbing or cyanosis. Skin Evaluation: The patient has abrasions in bilateral knees. No other abnormalities noted. Neuro Evaluation: Speech clear. Cranial nerves II through XII grossly intact. Motor strength is 5/5 bilaterally. Psychiatric Evaluation: Oriented x3 with no evidence of anxiety or depression. Please note this is a short summary of the patient's hospital stay. Please refer to further medical records for details. TIME SPENT: Approximately 40 minutes were spent on the patient's discharge. [id number]/[facility]PS #: [id number]/CPS #: [id number] KEVIN
--- NOTE | 2017-03-26 23:41 | DS ---
DISCHARGE SUMMARY:* ADDENDUM: HOSPITALIZATION COURSE: The patient was evaluated by Physical Therapy, Occupational Therapy, and Social Work. He was deemed to be a good candidate for outpatient Alcoholic Anonymous meetings for which he agreed. He was not interested in inpatient alcohol rehab. In regards to his bilateral leg weakness, it was due to muscular deconditioning , dehydration, and alcoholism. Once the patient was placed on intravenous dehydration, ate well for a couple of days and his magnesium and potassium were replaced, the patient was able to ambulate and by the end of his hospital stay, he ambulated without support and had no problems with using stairs. The patient was markedly dehydrated and hypomagnesemic and due to that, he was tachycardic. Due to that, a repeat transthoracic echocardiogram was performed, which showed no change from prior documented January 2017 and basically low normal EF. The patient was continued of his outpatient beta-vipul with good results. Once his hypomagnesemia and dehydration started resolving, his heart rate was much better controlled. By the time of discharge, it auscultated between 80 to 100 beats per minute and the patient continued to be in sinus rhythm on telemetry monitored bed. Due to his history of GI bleed, he was continued on his omeprazole. He was also started on p.o. magnesium supplement. The patient had mild withdrawal symptoms that may have been due to anxiety at the beginning of admission, but later on he did not require any anxiolytics. In addition, he is asked to see primary care physician of his choice for followup. PHYSICAL EXAMINATION: At the time discharge, blood pressure of 124/77, heart rate of 88 and regular, respiratory rate of 16, oxygen saturation 99% on room air, temperature 98.8. General: The patient is a very pleasant 56-year-old male who is in no acute distress. Alert, awake, and oriented x3. HEENT: Head atraumatic, normocephalic. Eyes: Pupils equal, round, reactive to light and accommodation. Oropharynx clear. Mucosa moist. Neck: Supple. No JVD. No bruits bilaterally. Cardiovascular: Regular rate and rhythm. No murmurs. Respiratory: Clear to auscultation bilaterally. Abdomen: Soft and nontender. Bowel sounds present in all 4 quadrants. Extremities: There is no edema. Pulses present 2+ bilaterally. No clubbing or cyanosis. Skin Evaluation: The patient has abrasions in bilateral knees. No other abnormalities noted. Neuro Evaluation: Speech clear. Cranial nerves II through XII grossly intact. Motor strength is 5/5 bilaterally. Psychiatric Evaluation: Oriented x3 with no evidence of anxiety or depression. Please note this is a short summary of the patient's hospital stay. Please refer to further medical records for details. TIME SPENT: Approximately 40 minutes were spent on the patient's discharge. [id number]/[facility] #: [id number] KEVIN
== END 2017-03-26 12:47 | disposition home or self-care (01) | DRG 556 ==
LOC: ED 03:19 → MEDTELE 08:52 → OBSVTOIN 03-23 09:38
PROVIDERS: ADMIT Internal Medicine; ATTEND Internal Medicine
DX: M62.81 Muscle weakness (generalized) (principal); K26.9 Duodenal ulcer, unspecified as acute or chronic, without hemorrhage or perforation; E86.0 Dehydration; E83.42 Hypomagnesemia; E87.6 Hypokalemia; F10.20 Alcohol dependence, uncomplicated; Y90.0 Blood alcohol level of less than 20 mg/100 ml; R74.8 Abnormal levels of other serum enzymes; Z82.49 Family history of ischemic heart disease and other diseases of the circulatory system; Z82.3 Family history of stroke
CPT/HCPCS: 36415; 70450; 70486; 71020; 72125; 80048; 80053; 80320; 81003; 81015; 82140; 82550; 83605; 83735; 84443; 84484; 85025; 85610; 93005; 93306; A9270-GY; G0378; G0480; G8987-GO-CL; G8988-GO-CI; J3475

== ENCOUNTER 2017-04-11 10:04 | Inpatient (IN) | payer SELFPAY ==
[2017-04-11] MEDS ORDERED: NS 0.9% 1000 ML* 1,000 ML IV ONE (11:02)
[2017-04-11 11:16] LABS: Hematocrit 39 % (42-52); Mean Corpuscular HGB Conc 33 g/dl (31-36); Mean Corpuscular Hemoglobin 34 pg (27-31); Mean Corpuscular Volume 102 fL (80-94); Mean Platelet Volume 9 um3 (7.4-10.4); Red Blood Count 3.85 10^6/ul (4.0-5.4); Red Cell Distribution Width 21 % (10.5-15); White Blood Count 9.4 10^3/ul (3.5-10.8)
[2017-04-11 11:18] LABS: Comments Flag Yes
[2017-04-11 11:31] LABS: ALT 33 U/L (7-52); AST 61 U/L (13-39); Albumin 4.3 g/dL (3.2-5.2); Alkaline Phosphatase 78 U/L (34-104); Anion Gap 12 mmol/L (2-11); BUN/Creatinine Ratio 11.1 (8-20); Blood Urea Nitrogen 8 mg/dL (6-24); CO2 Carbon Dioxide 23 mmol/L (22-32); Calcium 9.6 mg/dL (8.6-10.3); Chloride 97 mmol/L (101-111); EGFR African American 144.2 (>60); EGFR Non-African American 112.1 (>60); Globulin 3.5 g/dL (2-4); Glucose 85 mg/dL (70-100); Magnesium 1.5 mg/dL (1.9-2.7); Sodium 132 mmol/L (133-145); Total Protein 7.8 g/dL (6.4-8.9)
[2017-04-11 11:35] LABS: B Type Natriuretic Peptide 94 pg/mL
[2017-04-11 11:36] LABS: Troponin I 0.04 ng/mL (<0.04)
[2017-04-11 11:37] LABS: Ammonia 38 mol/L (16-53)
--- NOTE | 2017-04-11 11:41 | RAD ---
HISTORY: Syncope COMPARISONS: March 22, 2017 VIEWS: 2: Frontal and lateral views of the chest. FINDINGS: CARDIOMEDIASTINAL SILHOUETTE: The cardiomediastinal silhouette is normal. KIRSTIE: The kirstie are normal. PLEURA: The costophrenic angles are sharp. No pleural abnormalities are noted. LUNG PARENCHYMA: There is hyperinflation with flattening of the diaphragm and expansion of the AP diameter of the chest. ABDOMEN: The upper abdomen is clear. There is no subphrenic gas. BONES AND SOFT TISSUES: No bone or soft tissue abnormalities are noted. OTHER: None. IMPRESSION: HYPERINFLATION, CONSISTENT WITH COPD. NO ACTIVE CARDIOPULMONARY DISEASE.
--- NOTE | 2017-04-11 11:52 | RAD ---
Indication: Syncope. CT of the brain was performed without IV contrast. Ventricular structures are midline. No midline shift is noted. The extra-axial spaces are normal. No evidence of mass or hemorrhage. No other high or low density lesions identified. Mastoid air cells and paranasal sinuses are unremarkable. When compared to previous exam of March 22, 2017 no significant change is noted. IMPRESSION: There is no evidence of intracranial mass or hemorrhage is noted.
[2017-04-11 12:06] LABS: TSH (Thyroid Stimulating Horm) 1.04 mcIU/mL (0.34-5.60)
[2017-04-11 12:41] LABS: Urine Bacteria Absent (Absent); Urine Bilirubin Negative (Negative); Urine Glucose Negative (Negative); Urine Nitrite Negative (Negative)
[2017-04-11 12:49] LABS: Benzodiazepine Urine Screen None Detected (None Detect)
[2017-04-11 12:49] LABS: Alcohol < 10 mg/dL (<10)
[2017-04-11] MEDS ORDERED: Potassium Chlor TAB* 20 MEQ TAB.ER PO ONE (12:51)
[2017-04-11] MEDS ORDERED: Magnesium Oxide TAB* 400 MG PO ONE (12:51)
[2017-04-11] MEDS: NS 0.9% 1000 ML* 2,000 ML IV ONE ×2 (14:04→14:41)
[2017-04-11] MEDS: LORazepam TAB(*) 1 MG PO SCH ×5 (14:40→22:40)
[2017-04-11] MEDS: Acetaminophen TAB* 325 MG PO PRN ×2 (14:40→19:10)
--- NOTE | 2017-04-11 16:23 | HP ---
HOSPITAL MEDICINE HISTORY AND PHYSICAL: DATE OF ADMISSION: 04/11/17 PRIMARY CARE PHYSICIAN: Dr. Reid ATTENDING PHYSICIAN: Jolly Alvarado DO *(dictation provided by Kika Gill NP) CHIEF COMPLAINT: Syncope. HISTORY OF PRESENT ILLNESS: Mr. Vuong is a 56-year-old male who was just discharged on 03/26/17 from our hospital after being treated for dehydration, hypomagnesemia, and hypokalemia, with symptoms of severe weakness in the setting of chronic alcoholism, who presents again to the hospitalization today with concern for syncope. Mr. Vuong states he has not drank since going home initially; however, on repeat questioning, he states that perhaps he did drink something on Memorial Day. Regardless, the patient reports that yesterday he suddenly began to feel very weak. This morning, he went to get out of bed and he passed out. He denies any other complaints. He has had no fevers, no chills, no nausea, no abdominal pain. He has had no difficulty urinating. No difficulty with his bowel movements. In the emergency room, Mr. Vuong was noted to syncopize when going from sitting to standing in the triage area. He was brought back and given intravenous fluids and then orthostatic vital signs were taken, showing that he did have significant orthostasis and was quite lightheaded and weak on standing. His vital signs show a tachycardia with a heart rate running around 100, blood pressure stable. His labs show again persistent hypokalemia and hypomagnesemia. His CT brain was normal. Chest x-ray was normal. EKG shows no evidence of ischemia. PAST MEDICAL HISTORY: 1. Alcoholism. 2. Chronic hypomagnesemia. 3. Chronic hypokalemia. 4. History of duodenal ulcer with GI bleed in January 2017. MEDICATIONS: 1. Thiamine 100 mg p.o. daily. 2. Omeprazole 20 mg p.o. b.i.d. 3. Metoprolol tartrate 12.5 mg p.o. b.i.d. 4. Folic acid 1 mg p.o. daily. 5. Ferrous sulfate 325 mg p.o. b.i.d. ALLERGIES: No known drug allergies. FAMILY HISTORY: Positive for a mother who had CVA and at age 62. Father has cardiac issues, is alive and well at age 85. SOCIAL HISTORY: The patient denies tobacco or drug use. He states that he has not drank since . He lives alone. He has no healthcare proxy. REVIEW OF SYSTEMS: A 14-point review of systems was completed with Mr. Vuong and all those not mentioned above were negative. PHYSICAL EXAMINATION GENERAL: Mr. Vuong is lying in bed. He is in no acute distress, but he is tremulous. VITAL SIGNS: Temperature 99.5, pulse rate 101, respiratory rate 18, O2 saturation 100% on room air, blood pressure 137/85. LUNGS: Clear to auscultation bilaterally with no accessory muscle use and good aeration. HEART: S1, S2. No murmur, rub, or gallop and regular. ABDOMEN: Soft, nontender with bowel sounds positive x4. EXTREMITIES: No cyanosis or edema. SKIN: Intact. LABORATORY DATA/DIAGNOSTIC STUDIES: WBC 9.4, hemoglobin 13.0, hematocrit 39, platelet count 71. Sodium 132, potassium 3.0, chloride 97, serum bicarbonate 23 , BUN 8, creatinine 0.72, glucose 85. Lactic acid 1.3. Magnesium 1.5. Troponin 0.04. TSH is 1.04. Urine shows trace leuk esterase, but no bacteria. ETOH level less than 10. CT brain - "No evidence of intracranial mass or hemorrhage is noted." Chest x- ray shows "hyperinflation consistent with COPD, no active cardiopulmonary disease." EKG shows sinus tachycardia with a heart rate of about 115. There is no evidence of ischemia. ASSESSMENT: Mr. Vuong is a 56-year-old male with a past medical history of alcoholism and gastrointestinal ulcer, who presented to the hospital today with concern for syncope. He did syncopize again in the emergency room. PLAN: Our plans are for observation in the hospital for the followin. Syncope: The patient has described syncope that has only occurred on standing and he does have positive orthostatic vital signs. I suspect again that the patient is quite dehydrated from his ongoing alcoholism. His CT of the brain is negative. He showed no arrhythmias on telemetry monitoring. Our plan will be to continue telemetry monitoring. He will have 2 additional liters of normal saline and then continue on maintenance read of 125 mL per hour. We will check orthostatic vital signs again in the morning. 2. Electrolyte abnormalities: Plan to replete potassium and magnesium and recheck in a.m. 3. Anemia, chronic, stable. 4. Alcoholism: The patient will be on [place] protocol. He is tremulous in the emergency room. I am highly suspicious that he has been drinking excessively even though he denies it with me today. I will have him seen by social research assistant and I strongly encouraged him to consider alcohol cessation. 5. DVT prophylaxis with early mobility. 6. Disposition to telemetry. TIME SPENT: Approximately 60 minutes were spent on the admission of this patient, and more than half the time was spent with the patient at the bedside reviewing the events leading up to this hospitalization, performing the physical examination, and reviewing the plan of care. IKKA GILL NP CC: Dr. Reid in [place]* [id number]/CPS #: [id number] KEVIN
[2017-04-11] MEDS: NS 0.9% 1000 ML* 1,000 ML IV SCH (18:12)
--- NOTE | 2017-04-11 19:00 | ED ---
Rolan Talamantes Billy, scribed for Jett Sotelo MD on 04/11/17 at 1100 . Syncope/Near Syncope - HPI Summary HPI Summary: This patient is a 56 year old male who presents to [facility] for a syncopal episode that occurred this morning. He stated he lost consciousness for an unspecified period of time when getting up from the couch. He was at rest, watching television, immediately prior to the syncopal episode. He lives alone, and as such this fall was unwitnessed. He has had a headache for one hour by the time he was seen in the ED, as well as dizziness, weakness in both legs, and an unsteady gait. The patient reports one vomiting episode and nausea yesterday after having food. The patient denies chest pain, fevers, chills, cough, diarrhea, and constipation. - History Of Current Complaint Chief Complaint: EDSyncope Time Seen by Provider: 04/11/17 10:51 Hx Obtained From: Patient Onset/Duration: Sudden Onset Context: Unwitnessed, Loss Of Consciousness Activity At Onset: At Rest Alleviating Factor(s): Spontaneous Resolution Associated Signs And Symptoms: Dizzy, Headache, Shortness Of Breath, Weakness, Other - unsteady gait Frequency: Episodes x___ - 1 - Allergies/Home Medications Allergies/Adverse Reactions: Allergies Allergy/AdvReac Type Severity Reaction Status Date / Time No Known Allergies Allergy Verified 01/30/17 02:40 PMH/Surg Hx/FS Hx/Imm Hx Endocrine/Hematology History: Denies: Hx Diabetes Cardiovascular History: Denies: Hx Hypertension Respiratory History: Reports: Hx Chronic Obstructive Pulmonary Disease (COPD) GI History: Reports: Other GI Disorders - Heme + History: Denies: Hx Renal Disease Sensory History: Reports: Hx Contacts or Glasses - reading "cheaters" Denies: Hx Hearing Aid Opthamlomology History: Reports: Hx Contacts or Glasses - reading "cheaters" Infectious Disease History: No Infectious Disease History: Denies: Traveled Outside the [place] in Last 30 Days - Family History Known Family History: Negative: Cardiac Disease - Social History Alcohol Use: None Alcohol Amount: quit 2 weeks ago Hx Substance Use: No Substance Use Type: Reports: None Hx Tobacco Use: No Smoking Status (MU): Never Smoked Tobacco Review of Systems Negative: Fever, Chills Negative: Chest Pain Positive: Vomiting - yesterday, Nausea - yesterday. Negative: Diarrhea Neurological: Other - unsteady gait, dizziness Positive: Headache, Weakness, Syncope All Other Systems Reviewed And Are Negative: Yes Physical Exam - Summary Physical Exam Summary: VITAL SIGNS: Reviewed. GENERAL: Patient is a well-developed and nourished male who is lying comfortable in the stretcher. He appears very weak and dehydrated. Patient is not in any acute respiratory distress. HEAD AND FACE: No signs of trauma. No ecchymosis, hematomas or skull depressions. No sinus tenderness. EYES: PERRLA, EOMI x 2, No injected conjunctiva, no nystagmus. EARS: Hearing grossly intact. Ear canals and tympanic membranes are within normal limits. MOUTH: Oropharynx within normal limits. NECK: Supple, trachea is midline, no adenopathy, no JVD, no carotid bruit, no c- spine tenderness, neck with full ROM. CHEST: Symmetric, no tenderness at palpation LUNGS: There are crackles heard in both bases in the lungs. CVS: Regular rate and rhythm, S1 and S2 present, no murmurs or gallops appreciated. ABDOMEN: Soft, non-tender. No signs of distention. No rebound no guarding, and no masses palpated. Bowel sounds are normal. EXTREMITIES: FROM in all major joints, no edema, no cyanosis or clubbing. NEURO: Alert and oriented x 3. No acute neurological deficits. Speech is normal and follows commands. SKIN: Dry and warm Triage Information Reviewed: Yes Vital Signs On Initial Exam: Initial Vitals Temp Pulse BP Pulse Ox 98.1 F 139 141/96 100 04/11/17 10:06 04/11/17 10:06 04/11/17 10:06 04/11/17 10:06 Vital Signs Reviewed: Yes - [place] Coma Scale Coma Scale Total: 15 Diagnostics - Vital Signs Vital Signs Temp Pulse Resp BP Pulse Ox 04/11/17 10:49 116 97 04/11/17 10:45 99.6 F 122 20 124/89 100 04/11/17 10:06 98.1 F 139 141/96 100 - Laboratory Result Diagrams: 04/11/17 11:06 04/11/17 11:06 Lab Statement: Any lab studies that have been ordered have been reviewed, and results considered in the medical decision making process. - Radiology CXR Radiology Interpretation Completed By: Radiologist - HYPERINFLATION, CONSISTENT WITH COPD. NO ACTIVE CARDIOPULMONARY DISEASE. - CT Brain CT Interpretation: No Acute Changes CT Interpretation Completed By: Radiologist - EKG 1043 EKG Interpretation: sinus tachycardia 117 bpm, no STEMI EKG Comparison: No Significant Change - 03/22/17 Course/Dx Assessment/Plan: This patient is a 56 year old male who presents to [facility] for a syncopal episode that occurred this morning. He stated he lost consciousness for an unspecified period of time when getting up from the couch. He was at rest , watching television, immediately prior to the syncopal episode. He lives alone , and as such this fall was unwitnessed. He has had a headache for one hour by the time he was seen in the ED, as well as dizziness, weakness in both legs, and an unsteady gait. The patient reports one vomiting episode and nausea yesterday after having food. The patient denies chest pain, fevers, chills, cough, diarrhea, and constipation. Test results WNL except for slight anemia. Sodium is 132, potassium of 3, magnesium 1.5, troponin 0.04. UA is contaminated , so we will send for urine cultures. Urine toxicology is negative, serum alcohol <10. CT brain shows no acute intracranial pathology. CXR shows hyperinflation consistent with COPD without any active cardiopulmonary disease. In the ED course, the patient was given IV fluids since I believe that the patient is dehydrated, and that is the reason he had orthostatic hypotension. The patient was also given potassium and magnesium. At this point, I discussed my findings with Dr. Alvarado and she accepted the patient for admission. The patient is A&Ox3. - Diagnoses Provider Diagnoses: Syncope, Orthostatic hypotension, increased troponin r/o ACS - Physician Notifications Discussed Care of Patient With: Jolly Alvarado - Accepts admission Time Discussed With Above Provider: 12:29 Discharge - Discharge Plan Condition: Good Disposition: ADMITTED TO [facility] The documentation as recorded by the Rolan amaro Billy accurately reflects the service I personally performed and the decisions made by me, Jett Sotelo MD.
[2017-04-11] MEDS: Metoprolol Tartrate TAB* 25 MG PO SCH (20:34)
[2017-04-11] MEDS: Omeprazole CAP* 20 MG PO SCH (20:34)
[2017-04-11] MEDS: Ferrous Sulfate TAB* 325 MG PO SCH (20:34)
[2017-04-12] MEDS: LORazepam TAB(*) 1 MG PO SCH ×10 (00:24→21:00)
[2017-04-12] MEDS: NS 0.9% 1000 ML* 1,000 ML IV SCH ×4 (00:50→17:27)
[2017-04-12 05:21] LABS: BUN/Creatinine Ratio 12.5 (8-20); Calcium 8.1 mg/dL (8.6-10.3); EGFR African American 192.7 (>60); EGFR Non-African American 149.9 (>60); Magnesium 1.9 mg/dL (1.9-2.7); Potassium 3.2 mmol/L (3.5-5.0)
--- NOTE | 2017-04-12 08:01 | RAD ---
HISTORY: Head trauma, fall COMPARISONS: April 11, 2017 TECHNIQUE: Multiple contiguous axial CT scans were obtained of the head without intravenous contrast. FINDINGS: HEMORRHAGE/INFARCT: There is no hemorrhage or acute infarct. MASSES/SHIFT: There is no mass or shift. EXTRA-AXIAL SPACES: There are no extra-axial fluid collections. SULCI AND VENTRICLES: The sulci and ventricles are normal in size and position for the patient's stated age. CEREBRUM: There are no focal parenchymal abnormalities. BRAINSTEM: There are no focal parenchymal abnormalities. CEREBELLUM: There are no focal parenchymal abnormalities. VESSELS: The vessels are grossly normal. PARANASAL SINUSES: The paranasal sinuses are clear. ORBITS: The orbits are unremarkable. BONES AND SOFT TISSUE: No bone or soft tissue abnormalities are noted. OTHER: None IMPRESSION: NO ACUTE INTRACRANIAL PATHOLOGY.
[2017-04-12] MEDS: Ferrous Sulfate TAB* 325 MG PO SCH ×2 (08:34→21:02)
[2017-04-12] MEDS: Thiamine TAB* 100 MG TAB PO SCH (08:34)
[2017-04-12] MEDS: Omeprazole CAP* 20 MG PO SCH ×2 (08:34→21:02)
[2017-04-12] MEDS: Folic Acid TAB* 1 MG PO SCH (08:34)
[2017-04-12] MEDS: Multivitamins/Minerals TAB PO SCH (08:34)
[2017-04-12] MEDS: Metoprolol Tartrate TAB* 25 MG PO SCH ×2 (08:36→21:03)
[2017-04-12] MEDS: Potassium Chlor TAB* 20 MEQ TAB.ER PO SCH ×3 (09:50→13:57)
--- NOTE | 2017-04-12 09:57 | PN ---
Subjective Date of Service: 04/12/17 Interval History: Overnight events noted, fall this AM. Patient seen this morning. Reports he still feels dizzy when standing. Does not recall any fall this morning. Says his last drink was a week and a half ago, he says a few days before . I told him was just 3 days ago and he said then it was before that. Reports occasionally drinking up to 5- 6 beers/day. Has been in inpatient rehab in the past and attends AA meetings. Says he had some withdrawal symptoms the first day after he stopped drinking. Family History: Unchanged from Admission Social History: Unchanged from Admission Past Medical History: Unchanged from Admission Objective Active Medications: Acetaminophen (Tylenol Tab*) 650 mg PO Q4H PRN Ferrous Sulfate (Ferrous Sulfate Tab*) 325 mg PO BID ABHIJIT Folic Acid (Folvite Tab*) 1 mg PO DAILY ABHIJIT Sodium Chloride (Ns 0.9% 1000 Ml*) 1,000 mls @ 150 mls/hr IV PER RATE ABHIJIT Lorazepam (Ativan Tab(*)) 0 mg PO .PER WAM SCORE ABHIJIT Metoprolol Tartrate (Lopressor Tab*) 12.5 mg PO BID ABHIJIT Multivitamins/Minerals (Theragran/Minerals Tab*) 1 tab PO DAILY ABHIJIT Omeprazole (Prilosec Cap*) 20 mg PO BID ABHIJIT Potassium Chloride (Klor Con Er Tab*) 40 meq PO Q2H ABHIJIT Thiamine HCl (Vitamin B-1 Tab*) 100 mg PO DAILY ABHIJIT Vital Signs 04/11/17 04/11/17 04/11/17 14:00 14:06 14:33 Temperature 99.5 F 97.9 F Pulse Rate 97 101 119 Respiratory 19 18 20 Rate Blood Pressure 137/85 137/85 152/97 (mmHg) O2 Sat by Pulse 100 95 Oximetry 04/11/17 04/11/17 04/11/17 22:32 22:33 22:40 Temperature Pulse Rate 94 Respiratory 18 18 18 Rate Blood Pressure 134/85 (mmHg) O2 Sat by Pulse Oximetry 04/12/17 04/12/17 04/12/17 08:35 08:55 08:59 Temperature Pulse Rate 80 138 Respiratory 20 Rate Blood Pressure 146/98 106/88 (mmHg) O2 Sat by Pulse Oximetry Oxygen Devices in Use Now: None Appearance: Middle-aged, M, laying in bed in NAD Eyes: No Scleral Icterus Ears/Nose/Mouth/Throat: - - Dry MM Neck: NL Appearance and Movements; NL JVP Respiratory: Symmetrical Chest Expansion and Respiratory Effort, Clear to Auscultation Cardiovascular: NL Sounds; No Murmurs; No JVD, - - Tachycardic Abdominal: NL Sounds; No Tenderness; No Distention Lymphatic: No Cervical Adenopathy Extremities: No Edema Skin: No Rash or Ulcers Neurological: Alert and Oriented x 3, - - minimal tremor noted Result Diagrams: 04/11/17 11:06 04/12/17 04:51 Assess/Plan/Problems-Billing Assessment: Syncope 2/2 orthostatic hypotension and EtOH withdrawal in a 56 yo M with hx of EtOH abuse, erosive esophagitis - Patient Problems (1) Syncope Current Visit: Yes Comment: 2/2 orthostatic hypotension. Still with significant drop in SBP this morning. Continue IVF for now. Encouraged PO intake. Ambulate only with assistance. (2) Alcohol withdrawal Current Visit: Yes Comment: Continues to score on WAM protocol. Continue prn Ativan, thiamine, folate and MVM. SW consult. (3) Electrolyte abnormality Current Visit: No Comment: Replete K this AM again. Mg normalized. (4) Erosive esophagitis Current Visit: Yes Comment: Continue PPI (5) DVT prophylaxis Current Visit: No Comment: SCDs, ambulation Status and Disposition: Inpatient for EtOH withdrawal, orthostatic hypotension
[2017-04-12] MEDS ORDERED: LORazepam INJ* 2 MG/ML 1 ML VIAL IV PUSH ONE (17:18)
[2017-04-12] MEDS ORDERED: LORazepam TAB(*) 1 MG PO SCH (17:19)
[2017-04-12] MEDS ORDERED: LORazepam INJ* 2 MG/ML 1 ML VIAL ONE (17:22)
--- NOTE | 2017-04-12 17:24 | PN ---
Hospitalist Progress Note Patient scoring higher on WAM protocol throughout the day. When I examined him in the evening he was initially appropriate, was able to tell me his name, the date and said the year was 1016. Reported feeling "a little" shaky. As I was leaving the room he asked if he could be taken to his boat because his family is on his boat, he stated it was here in the hospital. Will give IV ativan x 1 now and will start scheduled PO ativan on top of prn for WAM.
[2017-04-12] MEDS: Acetaminophen TAB* 325 MG PO PRN (21:11)
[2017-04-12] MEDS: LORazepam INJ* 2 MG/ML 1 ML VIAL IV SCH (22:50)
[2017-04-13] MEDS: LORazepam INJ* 2 MG/ML 1 ML VIAL IV SCH ×2 (01:03→03:04)
[2017-04-13] MEDS: NS 0.9% 1000 ML* 1,000 ML IV SCH ×2 (05:35→17:47)
[2017-04-13] MEDS: LORazepam TAB(*) 1 MG PO SCH ×3 (05:36→21:07)
[2017-04-13 06:03] LABS: BUN/Creatinine Ratio 13.8 (8-20); Calcium 8.9 mg/dL (8.6-10.3); EGFR African American 185.1 (>60); EGFR Non-African American 143.9 (>60); Potassium 3.8 mmol/L (3.5-5.0)
--- NOTE | 2017-04-13 08:38 | PN ---
Subjective Date of Service: 04/13/17 Interval History: Patient seen this morning. Asleep but awoke easily. Says he is not sure if he is feeling shaky as it is too early. Has not stood up today to evaluate dizziness. No N/V. Now says his last drink was over a month ago. Family History: Unchanged from Admission Social History: Unchanged from Admission Past Medical History: Unchanged from Admission Objective Active Medications: Acetaminophen (Tylenol Tab*) 650 mg PO Q4H PRN Ferrous Sulfate (Ferrous Sulfate Tab*) 325 mg PO BID ABHIJIT Folic Acid (Folvite Tab*) 1 mg PO DAILY ABHIJIT Sodium Chloride (Ns 0.9% 1000 Ml*) 1,000 mls @ 75 mls/hr IV PER RATE ABHIJIT Lorazepam (Ativan Tab(*)) 2 mg PO Q8H ABHIJIT Lorazepam (Ativan Inj*) 0 mg IV .PER WAM SCORE ABHIJIT Metoprolol Tartrate (Lopressor Tab*) 12.5 mg PO BID ABHIJIT Multivitamins/Minerals (Theragran/Minerals Tab*) 1 tab PO DAILY ABHIJIT Omeprazole (Prilosec Cap*) 20 mg PO BID ABHIJIT Thiamine HCl (Vitamin B-1 Tab*) 100 mg PO DAILY [facility] Vital Signs 04/12/17 04/12/17 04/12/17 10:28 10:46 12:08 Temperature Pulse Rate 80 Respiratory 16 20 Rate Blood Pressure 142/92 (mmHg) O2 Sat by Pulse Oximetry 04/12/17 04/12/17 04/12/17 12:34 13:37 13:57 Temperature 98.9 F 97.8 F Pulse Rate 95 96 Respiratory 18 20 20 Rate Blood Pressure 125/85 162/96 (mmHg) O2 Sat by Pulse 100 100 Oximetry 04/13/17 04/13/17 05:20 05:36 Temperature 98.3 F Pulse Rate 88 Respiratory 16 16 Rate Blood Pressure 134/89 (mmHg) O2 Sat by Pulse 100 Oximetry Oxygen Devices in Use Now: None Appearance: Middle-aged, M, laying in bed in NAD Eyes: No Scleral Icterus Ears/Nose/Mouth/Throat: - - Dry MM Neck: NL Appearance and Movements; NL JVP Respiratory: Symmetrical Chest Expansion and Respiratory Effort, Clear to Auscultation Cardiovascular: NL Sounds; No Murmurs; No JVD, RRR Abdominal: NL Sounds; No Tenderness; No Distention Lymphatic: No Cervical Adenopathy Extremities: No Edema Skin: No Rash or Ulcers Neurological: - - Alert, oriented to self, place, year, when asked month initially said 05/05, but was then able to tell me April 13 while looking at the whiteboard Result Diagrams: 04/11/17 11:06 04/13/17 05:16 Assess/Plan/Problems-Billing Assessment: Syncope 2/2 orthostatic hypotension and EtOH withdrawal in a 56 yo M with hx of EtOH abuse, erosive esophagitis - Patient Problems (1) Syncope Current Visit: Yes Comment: 2/2 orthostatic hypotension. Continue IVF at decreased rate 75 cc/hr. Encouraged PO intake. Ambulate only with assistance. (2) Alcohol withdrawal Current Visit: Yes Comment: Continues to score on WAM protocol. Started on scheduled ativan yesterday, continue this as well as increased prn Ativan, thiamine, folate and MVM. SW consult. Suspect he is not forthcoming about the amount he actually drinks (3) Electrolyte abnormality Current Visit: No Comment: Resolved (4) Erosive esophagitis Current Visit: Yes Comment: Continue PPI (5) DVT prophylaxis Current Visit: No Comment: SCDs, ambulation Status and Disposition: Inpatient for EtOH withdrawal, orthostatic hypotension. Will need PT eval once he is more stable.
[2017-04-13] MEDS: Thiamine TAB* 100 MG TAB PO SCH (10:10)
[2017-04-13] MEDS: Omeprazole CAP* 20 MG PO SCH ×2 (10:10→21:05)
[2017-04-13] MEDS: Multivitamins/Minerals TAB PO SCH (10:11)
[2017-04-13] MEDS: Ferrous Sulfate TAB* 325 MG PO SCH ×2 (10:11→21:05)
[2017-04-13] MEDS: Folic Acid TAB* 1 MG PO SCH (10:11)
[2017-04-13] MEDS: Metoprolol Tartrate TAB* 25 MG PO SCH ×2 (10:16→21:06)
[2017-04-14] MEDS: LORazepam TAB(*) 1 MG PO SCH (04:41)
[2017-04-14] MEDS: NS 0.9% 1000 ML* 1,000 ML IV SCH (07:28)
[2017-04-14] MEDS: Multivitamins/Minerals TAB PO SCH (08:03)
[2017-04-14] MEDS: Thiamine TAB* 100 MG TAB PO SCH (08:03)
[2017-04-14] MEDS: Folic Acid TAB* 1 MG PO SCH (08:03)
[2017-04-14] MEDS: Omeprazole CAP* 20 MG PO SCH ×2 (08:03→20:37)
[2017-04-14] MEDS: Ferrous Sulfate TAB* 325 MG PO SCH ×2 (08:03→20:37)
[2017-04-14] MEDS: Metoprolol Tartrate TAB* 25 MG PO SCH ×2 (08:03→20:37)
--- NOTE | 2017-04-14 11:18 | PN ---
Subjective Date of Service: 04/14/17 Interval History: Patient seen this morning. Says he is feeling better today, dizziness improving. Has been ambulating with walker and 1 assist, feels he is getting stronger. Does not feel shaky. Family History: Unchanged from Admission Social History: Unchanged from Admission Past Medical History: Unchanged from Admission Objective Active Medications: Acetaminophen (Tylenol Tab*) 650 mg PO Q4H PRN Ferrous Sulfate (Ferrous Sulfate Tab*) 325 mg PO BID ABHIJIT Folic Acid (Folvite Tab*) 1 mg PO DAILY ABHIJIT Sodium Chloride (Ns 0.9% 1000 Ml*) 1,000 mls @ 75 mls/hr IV PER RATE ABHIJIT Lorazepam (Ativan Inj*) 0 mg IV .PER WAM SCORE ABHIJIT Metoprolol Tartrate (Lopressor Tab*) 12.5 mg PO BID ABHIJIT Multivitamins/Minerals (Theragran/Minerals Tab*) 1 tab PO DAILY ABHIJIT Omeprazole (Prilosec Cap*) 20 mg PO BID ABHIJIT Thiamine HCl (Vitamin B-1 Tab*) 100 mg PO DAILY [facility] Vital Signs 04/13/17 04/13/17 04/13/17 11:25 12:00 13:29 Temperature 98.1 F 98.8 F Pulse Rate 82 101 Respiratory 20 16 18 Rate Blood Pressure 125/86 110/80 (mmHg) O2 Sat by Pulse 100 100 Oximetry 04/13/17 04/13/17 04/13/17 13:39 14:00 15:04 Temperature 97.9 F Pulse Rate 98 Respiratory 16 16 16 Rate Blood Pressure 129/87 (mmHg) O2 Sat by Pulse Oximetry 04/13/17 04/13/17 04/13/17 16:00 17:38 17:51 Temperature 98.2 F Pulse Rate 91 Respiratory 16 20 16 Rate Blood Pressure 120/80 (mmHg) O2 Sat by Pulse 99 Oximetry 04/13/17 04/13/17 04/13/17 19:26 20:00 21:07 Temperature 98.3 F Pulse Rate 98 Respiratory 16 16 16 Rate Blood Pressure 103/68 (mmHg) O2 Sat by Pulse 99 Oximetry 04/13/17 04/13/17 04/14/17 22:20 23:07 00:12 Temperature 98.0 F Pulse Rate 101 93 Respiratory 16 16 16 Rate Blood Pressure 138/86 138/86 (mmHg) O2 Sat by Pulse 99 98 Oximetry 04/14/17 04/14/17 04/14/17 02:04 04:25 04:41 Temperature 97.8 F 99.1 F Pulse Rate 98 82 Respiratory 16 16 16 Rate Blood Pressure 134/94 140/97 (mmHg) O2 Sat by Pulse 99 98 Oximetry 04/14/17 04/14/17 04/14/17 06:16 07:20 07:45 Temperature 98.2 F Pulse Rate 89 Respiratory 16 15 20 Rate Blood Pressure 122/87 (mmHg) O2 Sat by Pulse 97 Oximetry 04/14/17 04/14/17 04/14/17 08:04 10:14 10:37 Temperature 98.1 F 98.4 F Pulse Rate 90 92 110 Respiratory 20 20 Rate Blood Pressure 142/102 130/86 115/87 (mmHg) O2 Sat by Pulse 100 99 Oximetry Oxygen Devices in Use Now: None Appearance: Middle-aged, M, sitting in chair in NAD Eyes: No Scleral Icterus Ears/Nose/Mouth/Throat: Mucous Membranes Moist Neck: NL Appearance and Movements; NL JVP Respiratory: Symmetrical Chest Expansion and Respiratory Effort, Clear to Auscultation Cardiovascular: NL Sounds; No Murmurs; No JVD, RRR Abdominal: NL Sounds; No Tenderness; No Distention Lymphatic: No Cervical Adenopathy Extremities: No Edema Skin: No Rash or Ulcers, - - No tremor noted Neurological: Alert and Oriented x 3, - - 5/5 strength throughout B/L LEs Result Diagrams: 04/11/17 11:06 04/13/17 05:16 Assess/Plan/Problems-Billing Assessment: Syncope 2/2 orthostatic hypotension and EtOH withdrawal in a 56 yo M with hx of EtOH abuse, erosive esophagitis - Patient Problems (1) Syncope Current Visit: Yes Comment: 2/2 orthostatic hypotension. Orthostatics taken this morning, no significant drop. Stopped IVF. Encourage PO intake. Ambulate only with assistance. PT eval ordered. (2) Alcohol withdrawal Current Visit: Yes Comment: Has not required prn ativan since early yesterday morning. Will hold scheduled ativan for now and continue prn Ativan, thiamine, folate and MVM. SW consult. Suspect he is not forthcoming about the amount he actually drinks (3) Electrolyte abnormality Current Visit: No Comment: Resolved (4) Erosive esophagitis Current Visit: Yes Comment: Continue PPI (5) DVT prophylaxis Current Visit: No Comment: SCDs, ambulation Status and Disposition: Inpatient for EtOH withdrawal, orthostatic hypotension. Will need PT eval once he is more stable.
[2017-04-14] MEDS ORDERED: LORazepam TAB(*) 1 MG PO SCH (12:00)
[2017-04-14] MEDS ORDERED: LORazepam TAB(*) 1 MG PO PRN (20:00)
[2017-04-14] MEDS ORDERED: Melatonin (NF) 3 MG TAB PO PRN (21:29)
[2017-04-15 07:49] VITALS: BP 125/86
[2017-04-15] MEDS: Metoprolol Tartrate TAB* 25 MG PO SCH (08:18)
[2017-04-15] MEDS: Omeprazole CAP* 20 MG PO SCH (08:19)
[2017-04-15] MEDS: Thiamine TAB* 100 MG TAB PO SCH (08:19)
[2017-04-15] MEDS: Ferrous Sulfate TAB* 325 MG PO SCH (08:19)
[2017-04-15] MEDS: Folic Acid TAB* 1 MG PO SCH (08:19)
[2017-04-15] MEDS: Multivitamins/Minerals TAB PO SCH (08:19)
--- NOTE | 2017-04-15 11:21 | DCNOTE ---
Patient ambulated well on his own this morning. Reports no dizziness. I stressed the importance of EtOH abstinence. He says he will continue to attend AA meetings. On exam, RRR, s1 and s2 present, no m/g/r, abd soft, NTND, BS+, no LE edema Plan to discharge home today. Will need PCP f/u. Encouraged abstinence and outpatient alcoholism treatment.
--- NOTE | 2017-04-16 05:57 | DS ---
DISCHARGE SUMMARY: DATE OF ADMISSION: 04/11/17 DATE OF DISCHARGE: 04/15/17 PRIMARY CARE PHYSICIAN: Dr. Reid. PRINCIPAL DISCHARGE DIAGNOSES: 1. Syncope secondary to orthostatic hypotension. 2. Alcohol withdrawal. 3. Electrolyte abnormalities. SECONDARY DIAGNOSES: 1. History of alcohol abuse. 2. History of duodenal ulcer with GI bleed, January 2017. 3. Erosive esophagitis. DISCHARGE MEDICATION REGIMEN: 1. Multivitamin 1 tablet by mouth daily. 2. Folic acid 1 mg by mouth daily. 3. Vitamin 100 mg by mouth daily. 4. Omeprazole 20 mg by mouth 2 times daily. 5. Metoprolol tartrate 12.5 by mouth 2 times daily. 6. Ferrous sulfate 325 mg by mouth 3 times daily. STUDIES DONE DURING HOSPITALIZATION: 1. CT brain without contrast. Impression: No evidence of intracranial mass or hemorrhage noted. 2. Repeat CT scan after a fall. Impression: No acute intracranial pathology. 3. Chest x-ray. Impression: Hyperinflation consistent with COPD. No active cardiopulmonary disease. HISTORY OF PRESENT ILLNESS AND HOSPITAL SUMMARY: Please see the full history and physical by Kika Gill NP for full details. Briefly, Mr. Vuong is a 56-year-old man who was discharged a few weeks ago from this hospital with similar presentation of weakness and the patient also had an episode of syncope at home. In the hospital, he was found to have significant orthostatic hypotension. He was started on aggressive IV fluid resuscitation. Over the following days, his blood pressure and his orthostatic hypotension resolved. The patient did experience some significant alcohol withdrawal symptoms during the hospital, mainly manifesting tachycardia, agitation, and confusion. The patient was given significant doses of benzodiazepines over the course of few days and was able to be weaned off them. He was seen by Physical Therapy and initially had some difficulty ambulating and required a walker. However, on the day of discharge, he was ambulating around the unit with no issues, not requiring any assistance. I suspect the patient drinks significantly more than he lets on. I explained my concerns with him and encouraged him to remain abstinent, which he claims he will do. He also states he has been going to Alcoholics Anonymous and says he will continue to do so. The patient will be discharged home with PCP's followup. TIME SPENT: Total time spent on this discharge 40 minutes. This is a summary of the hospitalization. Please see the full medical record for further details. CC: Dr. Reid* [id number]/CPS #: [id number] KEVIN
== END 2017-04-15 12:00 | disposition home or self-care (01) | DRG 312 ==
LOC: ED 10:04 → MEDTELE 13:38 → OBSVTOIN 04-12 10:00
PROVIDERS: ADMIT Hospitalist; ATTEND Hospitalist
DX: I95.1 Orthostatic hypotension (principal); K22.10 Ulcer of esophagus without bleeding; F10.230 Alcohol dependence with withdrawal, uncomplicated; Y90.0 Blood alcohol level of less than 20 mg/100 ml; J44.9 Chronic obstructive pulmonary disease, unspecified; E83.42 Hypomagnesemia; E87.6 Hypokalemia; E86.0 Dehydration; D53.9 Nutritional anemia, unspecified; Z79.899 Other long term (current) drug therapy; Z82.3 Family history of stroke; Z82.49 Family history of ischemic heart disease and other diseases of the circulatory system
CPT/HCPCS: 36415; 70450; 71020; 80048; 80053; 80307; 80320; 81003; 81015; 82140; 83605; 83735; 83880; 84443; 84484; 85025; 87040; 87086; 93005; A9270-GY; G0378; G0480; J2060; J3475

== ENCOUNTER 2017-05-12 19:37 | Inpatient (IN) | payer SELFPAY ==
[2017-05-12] MEDS ORDERED: Thiamine IV* 100 MG, Folic Acid IV* 1 MG, Multiple Vitamin IV ADULT* 10 ML in NS 0.9% 1... IV ONE (20:15)
[2017-05-12] MEDS ORDERED: Nitroglycerin TAB 0.4 MG* 0.4 MG TAB SL ONE (20:26)
[2017-05-12 20:57] LABS: Hematocrit 36 % (42-52); Hemoglobin 12.1 g/dl (14.0-18.0); Mean Corpuscular HGB Conc 34 g/dl (31-36); Mean Corpuscular Hemoglobin 34 pg (27-31); Mean Corpuscular Volume 102 fL (80-94); Mean Platelet Volume 9 um3 (7.4-10.4); Red Blood Count 3.52 10^6/ul (4.0-5.4); Red Cell Distribution Width 17 % (10.5-15); White Blood Count 7.3 10^3/ul (3.5-10.8)
[2017-05-12 21:01] LABS: Comments Flag Yes
[2017-05-12 21:02] LABS: Add Diff/Slide Review? Slide Review Added
--- NOTE | 2017-05-12 21:05 | RAD ---
HISTORY: Frontal headache COMPARISONS: April 12, 2017 TECHNIQUE: Multiple contiguous axial CT scans were obtained of the head without intravenous contrast. FINDINGS: HEMORRHAGE/INFARCT: There is no hemorrhage or acute infarct. MASSES/SHIFT: There is no mass or shift. EXTRA-AXIAL SPACES: There are no extra-axial fluid collections. SULCI AND VENTRICLES: The sulci and ventricles are normal in size and position for the patient's stated age. CEREBRUM: There are no focal parenchymal abnormalities. BRAINSTEM: There are no focal parenchymal abnormalities. CEREBELLUM: There are no focal parenchymal abnormalities. VESSELS: The vessels are grossly normal. PARANASAL SINUSES: The paranasal sinuses are clear. ORBITS: The orbits are unremarkable. BONES AND SOFT TISSUE: No bone or soft tissue abnormalities are noted. OTHER: None IMPRESSION: NO ACUTE INTRACRANIAL PATHOLOGY.
--- NOTE | 2017-05-12 21:07 | RAD ---
HISTORY: Fall, head pain COMPARISONS: March 22, 2017 TECHNIQUE: Multiple contiguous axial CT scans were obtained of the cervical spine without intravenous contrast, with coronal and sagittal multiplanar reformations. FINDINGS: BRAIN: The visualized brain is unremarkable CENTRAL CANAL: Evaluation of the central canal is limited on CT technique; however, there is no obvious canalicular mass or epidural hemorrhage. ALIGNMENT: The alignment is normal, without subluxation or dislocation. VERTEBRAL BODIES: The odontoid process is intact. The atlantoaxial intervals are symmetric. The vertebral bodies are normal in attenuation, without fracture. There is mild anterolateral marginal osteophyte formation. JOINTS: There is mild uncovertebral and facet hypertrophic change. MUSCULATURE: Unremarkable INTERVERTEBRAL DISCS: There is diffuse loss of intervertebral disc height. AXIAL IMAGES: There is no significant neural foraminal narrowing or central canal stenosis SOFT TISSUES: The visualized soft tissues of the neck are unremarkable. The prevertebral fat stripe is preserved. OTHER: None. IMPRESSION: NO ACUTE OSSEOUS INJURY TO THE CERVICAL SPINE. MILD DEGENERATIVE CHANGES.
[2017-05-12 21:11] LABS: ALT 25 U/L (7-52); Albumin 4.5 g/dL (3.2-5.2); Alkaline Phosphatase 54 U/L (34-104); BUN/Creatinine Ratio 13.6 (8-20); Blood Urea Nitrogen 11 mg/dL (6-24); C Reactive Protein < 1.00 mg/L (< 5.00); CO2 Carbon Dioxide 24 mmol/L (22-32); Chloride 101 mmol/L (101-111); Creatine Kinase 87 U/L (10-223); EGFR African American 125.9 (>60); EGFR Non-African American 97.9 (>60); Globulin 3.3 g/dL (2-4); Glucose 121 mg/dL (70-100); Lipase 74 U/L (11.0-82.0); Sodium 136 mmol/L (133-145); Total Protein 7.8 g/dL (6.4-8.9)
[2017-05-12 21:15] LABS: B Type Natriuretic Peptide 24 pg/mL
[2017-05-12 21:16] LABS: Troponin I 0.05 ng/mL (<0.04)
[2017-05-12 21:17] LABS: Anion Gap 11 mmol/L (2-11)
[2017-05-12] MEDS ORDERED: Ondansetron INJ* 2 MG/ML VIAL IV ONE (21:18)
[2017-05-12] MEDS ORDERED: Ondansetron INJ* 2 MG/ML VIAL ONE (21:19)
--- NOTE | 2017-05-12 21:37 | RAD ---
HISTORY: Chest pain COMPARISONS: April 11, 2017 VIEWS:1: Single frontal portable view of the chest at 8:25 PM FINDINGS: LINES AND TUBES: None. CARDIOMEDIASTINAL SILHOUETTE: The cardiomediastinal silhouette is normal for portable technique. PLEURA: The costophrenic angles are sharp. No pleural abnormalities are noted. LUNG PARENCHYMA: The lungs are clear. ABDOMEN: The upper abdomen is clear. There is no subphrenic gas. BONES AND SOFT TISSUES: Degenerative changes are noted along the spine. IMPRESSION: NO ACTIVE CARDIOPULMONARY DISEASE.
[2017-05-12 21:44] LABS: Acetaminophen < 15 mcg/mL; Alcohol < 10 mg/dL (<10); Salicylate < 2.50 mg/dL (<30)
[2017-05-12 21:49] LABS: Magnesium 1.7 mg/dL (1.9-2.7)
[2017-05-12] MEDS ORDERED: Lidocaine 2% VISCOUS* 15 ML UDC PO ONE (21:50)
[2017-05-12] MEDS ORDERED: Al Hydrox/Mg Hydrox/Simet LIQ* 30 ML UDC PO ONE (21:50)
[2017-05-12] MEDS ORDERED: Magnesium Sulfate 2 GM IV* 2 GM/50 ML BAG IVPB ONE (21:50)
[2017-05-12 21:55] LABS: TSH (Thyroid Stimulating Horm) 0.79 mcIU/mL (0.34-5.60)
[2017-05-12] MEDS ORDERED: Iohexol 350* (CONTRAST) 500 ML MDV IV ONE (22:01)
[2017-05-13] MEDS ORDERED: Aspirin Low Dose CHEW TAB* 81 MG PO ONE (00:51)
[2017-05-13 01:08] LABS: Urine Bilirubin Negative (Negative); Urine Glucose Negative (Negative); Urine Nitrite Negative (Negative)
[2017-05-13] MEDS ORDERED: Thiamine IV* 100 MG/ML 2 ML VIAL IM ONE (01:41)
[2017-05-13] MEDS ORDERED: LORazepam TAB(*) 1 MG PO SCH (02:00)
[2017-05-13] MEDS: LORazepam INJ* 2 MG/ML 1 ML VIAL IV SCH ×5 (02:40→23:06)
[2017-05-13] MEDS: traMADol TAB* 50 MG PO PRN ×3 (02:45→16:06)
[2017-05-13] MEDS: NS 0.9% 1000 ML* 1,000 ML IV SCH ×3 (05:28→21:04)
[2017-05-13] MEDS ORDERED: Heparin VIAL(*) 5000 UNITS/ML VIAL (FIVE THOUSAND) SUBCUT SCH (06:00)
--- NOTE | 2017-05-13 06:27 | RAD ---
INDICATION: Chest pain. Short of breath. Evaluate for pulmonary embolus. COMPARISON: Chest x-ray April 11, 2017 TECHNIQUE: Axial source images were obtained from the thoracic inlet to the hemidiaphragms following administration of [address] angiographic technique was utilized. Coronal and sagittal reconstructed images were acquired. CHEST FINDINGS: Neck/thyroid: The visualized neck to include the thyroid appear normal. Chest wall: There are no acute abnormalities of the bony thorax or chest wall. There is no supraclavicular, infraclavicular, or axillary lymphadenopathy. Lungs : There are no pulmonary parenchymal masses or infiltrates. There is minimal left basilar atelectasis. The pulmonary interstitium appears normal. There are no endobronchial lesions. Cardiomediastinal structures: There is no CT evidence of acute pulmonary embolic disease. The heart is normal in size. There is no pericardial effusion. There is no evidence of aortic aneurysm or dissection. There is no mediastinal or hilar adenopathy. The esophagus appears normal. Pleura : There are no pleural-based masses or effusions. Other: None. IMPRESSION: NO CT EVIDENCE OF ACUTE PULMONARY EMBOLIC DISEASE
--- NOTE | 2017-05-13 06:55 | RAD ---
INDICATION: Epigastric pain COMPARISON: None TECHNIQUE: Longitudinal and transverse scans of the right upper quadrant were obtained. Doppler interrogation of the hepatic and portal venous system was performed. FINDINGS: Liver: There is mild hepatomegaly with hepatic steatosis. There are no masses . The liver measures 18 cm in cephalocaudal dimension. Vessels: There is normal hepatic and portal venous flow. Bile ducts: No intrahepatic ductal dilatation is seen. The common duct is not well evaluated. Gallbladder: There are tiny gallstones versus sludge. There is no thickening of the gallbladder wall or pericholecystic fluid. Pancreas: Obscured by bowel gas Right kidney: The right kidney is normal in size and echogenicity. There are no masses or calculi. There is no evidence of hydronephrosis. The right kidney measures 11.4 x 3.6 x 5.7 cm. Fluid: There is no ascites. Other: None. IMPRESSION: TINY GALLSTONES VERSUS GALLBLADDER SLUDGE WITHOUT THICKENING OF BLADDER WALL OR PERICHOLECYSTIC FLUID. COMMON DUCT AND PANCREAS NOT VISUALIZED DUE TO BOWEL GAS.
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
[2017-05-13] MEDS: Thiamine TAB* 100 MG TAB PO SCH (09:27)
[2017-05-13] MEDS: Multivitamins/Minerals TAB PO SCH (09:27)
[2017-05-13] MEDS: Omeprazole CAP* 20 MG PO SCH ×2 (09:28→16:06)
[2017-05-13] MEDS: Folic Acid TAB* 1 MG PO SCH (09:28)
--- NOTE | 2017-05-13 09:55 | PN ---
Subjective Date of Service: 05/13/17 Interval History: This is a 56 yo gentleman with history of alcoholism and prior h/o PUD who presented with c/o CP. He sustained a fall at home stating that he was having difficulty with his balance precipitated by leg weakness. He admits to only 3 beers on 05/10 and reports symptoms started late the following day. This am, he ambulated with one of the nurses. He required a walker to stabilize himself. He states he still has some CP. No SOB, abd pain, n/v. Appetite is good. Objective Active Medications: Acetaminophen (Tylenol Tab*) 650 mg PO Q4H PRN PRN Reason: PAIN Folic Acid (Folvite Tab*) 1 mg PO DAILY [facility] Last Admin: 05/13/17 09:28 Dose: 1 mg Sodium Chloride (Ns 0.9% 1000 Ml*) 1,000 mls @ 100 mls/hr IV PER RATE [facility] Last Admin: 05/13/17 05:28 Dose: 100 mls/hr Lorazepam (Ativan Inj*) 0 mg IV .PER WAM SCORE [facility] PRN Reason: Protocol Last Admin: 05/13/17 05:27 Dose: 2 mg Lorazepam (Ativan Inj*) 1 mg IV Q8H [facility] PRN Reason: Taper Stop: 05/15/17 21:59 Last Admin: 05/13/17 09:27 Dose: 1 mg Multivitamins/Minerals (Theragran/Minerals Tab*) 1 tab PO DAILY [facility] Last Admin: 05/13/17 09:27 Dose: 1 tab Omeprazole (Prilosec Cap*) 20 mg PO 0730,1630 [facility] Last Admin: 05/13/17 09:28 Dose: 20 mg Thiamine HCl (Vitamin B-1 Tab*) 100 mg PO DAILY [facility] Last Admin: 05/13/17 09:27 Dose: 100 mg Tramadol HCl (Ultram*) 50 mg PO Q6H PRN PRN Reason: PAIN Last Admin: 05/13/17 09:27 Dose: 50 mg Vital Signs: Temp Pulse Resp BP Pulse Ox 97.8 F 92 22 132/96 97 05/13/17 09:50 05/13/17 09:50 05/13/17 09:50 05/13/17 09:50 05/13/17 09:50 Oxygen Devices in Use Now: None Appearance: Slightly disheveled appearing middle aged gentleman in NAD Respiratory: Symmetrical Chest Expansion and Respiratory Effort, Clear to Auscultation Cardiovascular: NL Sounds; No Murmurs; No JVD, RRR Abdominal: NL Sounds; No Tenderness; No Distention Extremities: No Edema Skin: No Rash or Ulcers Neurological: Alert and Oriented x 3, - - slight intention tremor Result Diagrams: 05/12/17 20:47 05/12/17 21:30 Additional Lab and Data: . Diagnostic Imaging: CXR - NAD CT brain - NAD CS CT - NAD CTA chest - No PE GB US - sludge and small stones, no wall thickening Assess/Plan/Problems-Billing Assessment: This is a 56 yo gentleman with h/o alcoholism and remote PUD who presented with CP, difficulty with balance and tremulousness. - Patient Problems (1) Alcohol withdrawal Comment: Mild Still somewhat tremulous with balance difficulty Cont WAM protocol (2) Chest pain Comment: Likely GI related Mildly elevated trop which is stable and without EKG changes Started PPI (3) Thrombocytopenia Comment: Likely due to alcohol abuse (4) Full code status (5) DVT prophylaxis Comment: SCDs and reg ambulation Status and Disposition: Observation. Anticipate like dc tomorrow
[2017-05-13] MEDS ORDERED: NS 0.9% 1000 ML* 1,000 ML IV ONE (13:47)
--- NOTE | 2017-05-13 13:49 | HP ---
CC: Dr. Reid in [place]* HISTORY AND PHYSICAL: DATE OF ADMISSION: 05/13/17 PRIMARY CARE PHYSICIAN: Dr. Reid in [place]. CHIEF COMPLAINT: Chest pain and inability to walk. HISTORY OF PRESENT ILLNESS: The patient is a 56-year-old gentleman who said he woke up this morning with the pain in the center of his chest. He said the pain was pretty consistent all day. Then, he could not even move his legs. He said at 5 p.m. he fell and slipped in the bathroom because of that. He is dizzy all the time. The room is not spinning, but he feels quite lightheaded. He states the pain in his chest was increased with the cough and he had associated shortness of breath. The pain also increased with exertion. It did not radiate, but he has some nausea, but no vomiting. At its worse, it is 8/10 in severity. He also notes that last time he had a drink was night prior to coming in. PAST MEDICAL HISTORY: Significant for alcoholism, chronic hypomagnesemia, chronic hypokalemia, duodenal ulcer with GI bleed in January of 2017. MEDICATIONS: He is currently only taking aspirin 81 mg daily. ALLERGIES: He has no known drug allergies. FAMILY HISTORY: Positive for mother had CVA and at 62. Father had cardiac issues, still alive at 85. SOCIAL HISTORY: Denies tobacco or drug use. He states he used to drink, but he does not drink as much as he used to. His healthcare proxy is Dillon Vuong, his brother. REVIEW OF SYSTEMS: A 14-point review of systems was completed with the patient. All pertinent positives and negatives are in the history of present illness, otherwise it is negative. PHYSICAL EXAMINATION GENERAL: Pleasant gentleman sitting up in bed, in no acute distress. VITAL SIGNS: Temperature 98.9 degrees, heart rate 109 beats per minute, respiratory rate 20 breaths per minute, blood pressure 164/96. HEENT: Normocephalic and atraumatic. Pupils are equal, round and reactive to light. Moist mucous membranes. NECK: Supple. No JVD, bruits, palpable thyroid or lymphadenopathy. CHEST: Clear to auscultation and percussion bilaterally. CARDIOVASCULAR: S1, S2 appreciated. ABDOMEN: Positive bowel sounds in all 4 quadrants. Soft, nontender, nondistended. EXTREMITIES: No cyanosis, clubbing, or edema. +2 peripheral pulses bilaterally. NEUROLOGIC: Alert and oriented x3. Moves all extremities. SKIN: No rashes or abnormalities. LABORATORY DATA: White count 7.3, hemoglobin 12.1, hematocrit 36, and platelets 78. His sodium is 136, potassium 4.7, chloride 101, CO2 of 24, BUN 11 , creatinine 0.81, glucose 121. Lactic acid 2.8. Total bilirubin 1.1. Magnesium 1.7. Troponin 0.05. EKG shows sinus tachycardia, rate of 106 beats per minute, left axis deviation, PVC, left anterior hemiblock. His chest CTA was interpreted by nighttime radiologist as no evidence of PE. Ultrasound of the gallbladder shows sludge without secondary findings of cholecystitis. Borderline enlarged mildly fatty liver. ASSESSMENT AND PLAN: 1. Chest pain. I doubt it is cardiac, it is more likely related to reflux or gastritis. His troponin was 0.05, but it has been much higher in the past and is more likely his baseline. Also, it does not sound cardiac. It was not relieved by nitroglycerin either. I will, however, place him on telemetry. I will get a repeat troponin in the morning. 2. Alcohol abuse. The patient has not had a drink in a couple of days. This timing is perfect for withdrawal. He is tachycardic. His blood pressure is high. I will place him on a WAM protocol which is what I am most concerned about in this patient. 3. FEN. Heart healthy diet. 4. DVT prophylaxis. No heparin because of his platelet count. I will place him on sequential compression stockings. 5. The patient is a full code. TIME SPENT: Over 75 minutes was spent on this H and P, more than 40 minutes of which was spent in direct [id number] contact with the patient in evaluation, physical exam, counseling, and coordination of care. [id number]/[facility] #: [id number] KEVIN
[2017-05-13] MEDS: Acetaminophen TAB* 325 MG PO PRN ×2 (18:08→22:06)
[2017-05-14] MEDS: traMADol TAB* 50 MG PO PRN ×2 (00:05→00:11)
[2017-05-14] MEDS: LORazepam INJ* 2 MG/ML 1 ML VIAL IV SCH ×9 (01:09→20:04)
[2017-05-14 06:02] LABS: Comments Flag Yes; Hematocrit 38 % (42-52); Hemoglobin 12.8 g/dl (14.0-18.0); Mean Corpuscular HGB Conc 34 g/dl (31-36); Mean Corpuscular Hemoglobin 35 pg (27-31); Mean Corpuscular Volume 103 fL (80-94); Mean Platelet Volume 9 um3 (7.4-10.4); Red Blood Count 3.66 10^6/ul (4.0-5.4); Red Cell Distribution Width 16 % (10.5-15); White Blood Count 4.5 10^3/ul (3.5-10.8)
[2017-05-14 06:17] LABS: BUN/Creatinine Ratio 8.1 (8-20); Calcium 9.3 mg/dL (8.6-10.3); EGFR African American 171.4 (>60); EGFR Non-African American 133.2 (>60)
[2017-05-14 06:52] LABS: Potassium 3.2 mmol/L (3.5-5.0)
[2017-05-14] MEDS ORDERED: Potassium Chlor TAB* 20 MEQ TAB.ER PO ONE (07:16)
[2017-05-14] MEDS: Omeprazole CAP* 20 MG PO SCH ×2 (07:21→16:55)
[2017-05-14 08:12] LABS: Magnesium 1.7 mg/dL (1.9-2.7)
[2017-05-14] MEDS: NS 0.9% 1000 ML* 1,000 ML IV SCH ×2 (09:49→21:38)
[2017-05-14] MEDS: Folic Acid TAB* 1 MG PO SCH (09:49)
[2017-05-14] MEDS: Multivitamins/Minerals TAB PO SCH (09:49)
[2017-05-14] MEDS: Thiamine TAB* 100 MG TAB PO SCH (09:49)
[2017-05-14] MEDS ORDERED: Magnesium Sulfate 2 GM IV* 2 GM/50 ML BAG IVPB ONE (10:25)
--- NOTE | 2017-05-14 15:03 | PN ---
Subjective Date of Service: 05/14/17 Interval History: Patient's withdrawal became more severe overnight requiring multiple doses of IV Ativan. He has been quite confused today and sleeping most of the day. Objective Active Medications: Acetaminophen (Tylenol Tab*) 650 mg PO Q4H PRN PRN Reason: PAIN Last Admin: 05/13/17 22:06 Dose: 650 mg Folic Acid (Folvite Tab*) 1 mg PO DAILY [facility] Last Admin: 05/14/17 09:49 Dose: 1 mg Sodium Chloride (Ns 0.9% 1000 Ml*) 1,000 mls @ 100 mls/hr IV PER RATE [facility] Last Admin: 05/14/17 09:49 Dose: 100 mls/hr Lorazepam (Ativan Inj*) 0 mg IV .PER WAM SCORE [facility] PRN Reason: Protocol Last Admin: 05/14/17 14:41 Dose: 2 mg Lorazepam (Ativan Inj*) 1 mg IV Q12H [facility] PRN Reason: Taper Stop: 05/15/17 21:59 Last Admin: 05/14/17 06:20 Dose: 1 mg Multivitamins/Minerals (Theragran/Minerals Tab*) 1 tab PO DAILY [facility] Last Admin: 05/14/17 09:49 Dose: 1 tab Omeprazole (Prilosec Cap*) 20 mg PO 0730,1630 [facility] Last Admin: 05/14/17 07:21 Dose: 20 mg Thiamine HCl (Vitamin B-1 Tab*) 100 mg PO DAILY [facility] Last Admin: 05/14/17 09:49 Dose: 100 mg Tramadol HCl (Ultram*) 50 mg PO Q6H PRN PRN Reason: PAIN Last Admin: 05/14/17 00:11 Dose: 50 mg Vital Signs: Temp Pulse Resp BP Pulse Ox 97.3 F 93 18 121/82 99 05/14/17 14:33 05/14/17 14:33 05/14/17 14:41 05/14/17 14:33 05/14/17 14:33 Oxygen Devices in Use Now: None Appearance: Patient is somnolent, not easily awakened Respiratory: Symmetrical Chest Expansion and Respiratory Effort, Clear to Auscultation Cardiovascular: NL Sounds; No Murmurs; No JVD, RRR Abdominal: NL Sounds; No Tenderness; No Distention Result Diagrams: 05/14/17 05:48 05/14/17 05:48 Additional Lab and Data: . Diagnostic Imaging: CXR - NAD CT brain - NAD CS CT - NAD CTA chest - No PE GB US - sludge and small stones, no wall thickening Assess/Plan/Problems-Billing Assessment: This is a 56 yo gentleman with h/o alcoholism and remote PUD who presented with CP, difficulty with balance and tremulousness. - Patient Problems (1) Alcohol withdrawal Comment: Withdrawal symptoms have escalated, now requiring multiple doses of IV Ativan Cont WAM protocol (2) Chest pain Comment: Likely GI related Mildly elevated trop which is stable and without EKG changes Started PPI (3) Thrombocytopenia Comment: Likely due to alcohol abuse (4) Full code status (5) DVT prophylaxis Comment: SCDs and reg ambulation Status and Disposition: Now inpatient. Cont WAM protocol
[2017-05-14] MEDS: Acetaminophen TAB* 325 MG PO PRN (22:13)
[2017-05-15] MEDS: traMADol TAB* 50 MG PO PRN ×4 (00:11→22:17)
[2017-05-15] MEDS: Acetaminophen TAB* 325 MG PO PRN (04:07)
[2017-05-15] MEDS: LORazepam INJ* 2 MG/ML 1 ML VIAL IV SCH ×2 (06:15→06:16)
[2017-05-15] MEDS: Omeprazole CAP* 20 MG PO SCH ×2 (07:23→16:11)
[2017-05-15] MEDS: Folic Acid TAB* 1 MG PO SCH (07:24)
[2017-05-15] MEDS: Thiamine TAB* 100 MG TAB PO SCH (07:24)
[2017-05-15] MEDS: Multivitamins/Minerals TAB PO SCH (07:24)
[2017-05-15 07:25] LABS: BUN/Creatinine Ratio 10.3 (8-20); Calcium 9.1 mg/dL (8.6-10.3); EGFR African American 185.1 (>60); EGFR Non-African American 143.9 (>60); Potassium 3.5 mmol/L (3.5-5.0)
[2017-05-15] MEDS: NS 0.9% 1000 ML* 1,000 ML IV SCH (07:27)
[2017-05-15] MEDS ORDERED: LORazepam TAB(*) 0.5 MG PO PRN ×2 (11:45→11:53)
[2017-05-15] MEDS ORDERED: LORazepam INJ* 2 MG/ML 1 ML VIAL IV PRN (11:52)
--- NOTE | 2017-05-15 14:16 | PN ---
Subjective Date of Service: 05/15/17 Interval History: Patient is more alert today. Reports that he still feels "foggy". He has persistent CP. Denies any new symptoms including SOB, abd pain, n/v. Objective Active Medications: Acetaminophen (Tylenol Tab*) 650 mg PO Q4H PRN PRN Reason: PAIN Last Admin: 05/15/17 04:07 Dose: 650 mg Folic Acid (Folvite Tab*) 1 mg PO DAILY [facility] Last Admin: 05/15/17 07:24 Dose: 1 mg Sodium Chloride (Ns 0.9% 1000 Ml*) 1,000 mls @ 100 mls/hr IV PER RATE [facility] Last Admin: 05/15/17 07:27 Dose: 100 mls/hr Lorazepam (Ativan Inj*) 1 mg IV Q8H PRN; Taper PRN Reason: AGITATION Stop: 05/18/17 07:51 Lorazepam (Ativan Tab(*)) 0 mg PO Q4H PRN; Protocol PRN Reason: WITHDRAWAL - ALCOHOL Multivitamins/Minerals (Theragran/Minerals Tab*) 1 tab PO DAILY [facility] Last Admin: 05/15/17 07:24 Dose: 1 tab Omeprazole (Prilosec Cap*) 20 mg PO 0730,1630 [facility] Last Admin: 05/15/17 07:23 Dose: 20 mg Thiamine HCl (Vitamin B-1 Tab*) 100 mg PO DAILY [facility] Last Admin: 05/15/17 07:24 Dose: 100 mg Tramadol HCl (Ultram*) 50 mg PO Q6H PRN PRN Reason: PAIN Last Admin: 05/15/17 06:16 Dose: 50 mg Vital Signs: Temp Pulse Resp BP Pulse Ox 98.3 F 87 16 131/90 98 05/15/17 11:48 05/15/17 11:48 05/15/17 11:48 05/15/17 11:48 05/15/17 11:48 Oxygen Devices in Use Now: None Appearance: Alert, eating lunch in NAD Respiratory: Symmetrical Chest Expansion and Respiratory Effort, Clear to Auscultation Cardiovascular: NL Sounds; No Murmurs; No JVD, RRR Abdominal: NL Sounds; No Tenderness; No Distention Extremities: No Edema Skin: No Rash or Ulcers Neurological: Alert and Oriented x 3, - - mild tremulousness and confusion Result Diagrams: 05/14/17 05:48 05/15/17 06:46 Additional Lab and Data: . Diagnostic Imaging: CXR - NAD CT brain - NAD CS CT - NAD CTA chest - No PE GB US - sludge and small stones, no wall thickening Assess/Plan/Problems-Billing Assessment: This is a 56 yo gentleman with h/o alcoholism and remote PUD who presented with CP, difficulty with balance and tremulousness. - Patient Problems (1) Alcohol withdrawal Comment: Cont WAM protocol, but decreased Ativan scale Improving today (2) Chest pain Comment: Likely GI related Mildly elevated trop which is stable and without EKG changes Started PPI (3) Thrombocytopenia Comment: Likely due to alcohol abuse (4) Full code status (5) DVT prophylaxis Comment: SCDs and reg ambulation Status and Disposition: Inpatient, possible dc in 1-2 days
[2017-05-16] MEDS: traMADol TAB* 50 MG PO PRN ×3 (06:02→20:14)
[2017-05-16] MEDS: Thiamine TAB* 100 MG TAB PO SCH (09:07)
[2017-05-16] MEDS: Multivitamins/Minerals TAB PO SCH (09:07)
[2017-05-16] MEDS: Folic Acid TAB* 1 MG PO SCH (09:07)
[2017-05-16] MEDS: Omeprazole CAP* 20 MG PO SCH ×2 (09:07→17:08)
--- NOTE | 2017-05-16 11:03 | RAD ---
HISTORY: Chest pain, subacute trauma COMPARISONS: CT of the chest dated May 12, 2017 VIEWS: 11, Frontal and oblique views of the left and right hemithorax. FINDINGS: There is minimal sclerosis consistent with subacute nondisplaced fracture of the left ninth rib and of the left seventh rib. There is no appreciable pneumothorax. IMPRESSION: FINDINGS SUGGESTIVE OF SUBACUTE NONDISPLACED FRACTURES OF THE LEFT HEMITHORAX. NO APPRECIABLE PNEUMOTHORAX.
[2017-05-16] MEDS: Acetaminophen TAB* 325 MG PO PRN ×2 (11:55→17:08)
--- NOTE | 2017-05-16 13:57 | PN ---
Subjective Date of Service: 05/16/17 Interval History: Patient reports persistent CP. He feels that his confusion is clearing. He still feels dizzy and slightly off balance, but reports improvement. Objective Active Medications: Acetaminophen (Tylenol Tab*) 650 mg PO Q4H PRN PRN Reason: PAIN Last Admin: 05/16/17 11:55 Dose: 650 mg Folic Acid (Folvite Tab*) 1 mg PO DAILY [facility] Last Admin: 05/16/17 09:07 Dose: 1 mg Lorazepam (Ativan Inj*) 1 mg IV Q12H PRN; Taper PRN Reason: AGITATION Stop: 05/18/17 07:51 Lorazepam (Ativan Tab(*)) 0 mg PO Q4H PRN; Protocol PRN Reason: WITHDRAWAL - ALCOHOL Multivitamins/Minerals (Theragran/Minerals Tab*) 1 tab PO DAILY [facility] Last Admin: 05/16/17 09:07 Dose: 1 tab Omeprazole (Prilosec Cap*) 20 mg PO 0730,1630 [facility] Last Admin: 05/16/17 09:07 Dose: 20 mg Thiamine HCl (Vitamin B-1 Tab*) 100 mg PO DAILY [facility] Last Admin: 05/16/17 09:07 Dose: 100 mg Tramadol HCl (Ultram*) 50 mg PO Q6H PRN PRN Reason: PAIN Last Admin: 05/16/17 06:02 Dose: 50 mg Vital Signs: Temp Pulse Resp BP Pulse Ox 98.3 F 90 16 138/96 99 05/16/17 07:34 05/16/17 07:34 05/16/17 09:00 05/16/17 07:34 05/16/17 07:34 Oxygen Devices in Use Now: None Appearance: Well appearing middle aged gentleman in NAD Respiratory: Symmetrical Chest Expansion and Respiratory Effort, Clear to Auscultation Cardiovascular: NL Sounds; No Murmurs; No JVD, RRR Abdominal: NL Sounds; No Tenderness; No Distention Extremities: No Edema Skin: No Rash or Ulcers Neurological: Alert and Oriented x 3, - - gait was not assessed Result Diagrams: 05/14/17 05:48 05/15/17 06:46 Additional Lab and Data: . Diagnostic Imaging: CXR - NAD CT brain - NAD CS CT - NAD CTA chest - No PE GB US - sludge and small stones, no wall thickening Assess/Plan/Problems-Billing Assessment: This is a 56 yo gentleman with h/o alcoholism and remote PUD who presented with CP, difficulty with balance and tremulousness. - Patient Problems (1) Alcohol withdrawal Comment: Cont WAM protocol monitoring, but patient has not required lorazepam in ~24hrs Improving today, still some dizziness and trouble with balance (2) Rib fracture Comment: Pt had c/o persistent CP, repeat CXR with rib views demonstrates fracture today Non-displaced fractures of L 7th and 9th ribs without pneumothorax (3) Thrombocytopenia Comment: Likely due to alcohol abuse (4) Full code status (5) DVT prophylaxis Comment: SCDs and reg ambulation Status and Disposition: Inpatient, possible dc tomorrow
[2017-05-17] MEDS: Acetaminophen TAB* 325 MG PO PRN ×3 (01:56→23:51)
[2017-05-17] MEDS: Omeprazole CAP* 20 MG PO SCH ×2 (08:04→18:48)
[2017-05-17] MEDS: Multivitamins/Minerals TAB PO SCH (08:04)
[2017-05-17] MEDS: Folic Acid TAB* 1 MG PO SCH (08:04)
[2017-05-17] MEDS: Thiamine TAB* 100 MG TAB PO SCH (08:04)
--- NOTE | 2017-05-17 12:45 | PN ---
Subjective Date of Service: 05/17/17 Interval History: Patient seen and examined at bedside. Pt states that he has been up and walking in the halls with physical therapy. He also reports feeling dizzy and almost lost his balance while in the bathroom. Denies fever, chills, shortness of breath, chest discomfort, N/V/D. Pt reports diaphoresis and left rib pain. Tele: Sinus rhythm, rate 70-100. Family History: Unchanged from Admission Social History: Unchanged from Admission Past Medical History: Unchanged from Admission Objective Active Medications: Acetaminophen (Tylenol Tab*) 650 mg PO Q4H PRN Reason: PAIN Folic Acid (Folvite Tab*) 1 mg PO DAILY [facility] Lorazepam (Ativan Inj*) 1 mg IV Q12H PRN Reason: AGITATION Stop: 05/18/17 07:51 Lorazepam (Ativan Tab(*)) 0 mg PO Q4H PRN; Protocol Reason: WITHDRAWAL - ALCOHOL Multivitamins/Minerals (Theragran/Minerals Tab*) 1 tab PO DAILY [facility] Omeprazole (Prilosec Cap*) 20 mg PO 0730,1630 [facility] Thiamine HCl (Vitamin B-1 Tab*) 100 mg PO DAILY [facility] Tramadol HCl (Ultram*) 50 mg PO Q6H PRN Reason: PAIN Vital Signs 05/16/17 05/16/17 05/16/17 13:55 15:36 15:55 Temperature 98.5 F Pulse Rate 90 Respiratory 16 17 14 Rate Blood Pressure 135/85 (mmHg) O2 Sat by Pulse 99 Oximetry 05/16/17 05/16/17 05/16/17 16:00 19:15 19:16 Temperature 98.6 F Pulse Rate 91 Respiratory 17 17 18 Rate Blood Pressure 145/97 (mmHg) O2 Sat by Pulse 98 Oximetry 05/16/17 05/16/17 05/16/17 20:14 22:14 23:38 Temperature 99.4 F Pulse Rate 96 Respiratory 18 16 16 Rate Blood Pressure 124/98 (mmHg) O2 Sat by Pulse 100 Oximetry 05/17/17 05/17/17 05/17/17 04:09 07:32 08:00 Temperature 98.7 F 98.6 F Pulse Rate 92 92 Respiratory 16 20 20 Rate Blood Pressure 153/100 129/84 (mmHg) O2 Sat by Pulse 98 99 Oximetry Oxygen Devices in Use Now: None Appearance: NAD, laying in bed Eyes: No Scleral Icterus Ears/Nose/Mouth/Throat: Mucous Membranes Moist Respiratory: Symmetrical Chest Expansion and Respiratory Effort, Clear to Auscultation Cardiovascular: NL Sounds; No Murmurs; No JVD, RRR Abdominal: NL Sounds; No Tenderness; No Distention Extremities: No Edema Skin: No Rash or Ulcers Neurological: Alert and Oriented x 3, NL Muscle Strength and Tone Lines/Tubes/Other Access: Clean, Dry and Intact Peripheral IV - site benign Nutrition: Taking PO's Result Diagrams: 05/14/17 05:48 05/15/17 06:46 Additional Lab and Data: . Diagnostic Imaging: CXR - NAD CT brain - NAD CS CT - NAD CTA chest - No PE GB US - sludge and small stones, no wall thickening Assess/Plan/Problems-Billing Assessment: Mr. Catherine is a 56 yo gentleman with h/o alcoholism and remote PUD who presented with CP, difficulty with balance and tremulousness. - Patient Problems (1) Alcohol withdrawal Code(s): F10.239 - ALCOHOL DEPENDENCE WITH WITHDRAWAL, UNSPECIFIED SNOMED Code (s): 345035733 Comment: - Improving, still some dizziness and trouble with balance - Continue WAM protocol monitoring, but patient has not required lorazepam in ~ 24hrs (2) Rib fracture Code(s): S22.39XA - FRACTURE OF ONE RIB, UNSP SIDE, INIT FOR CLOS FX SNOMED Code(s): 74986386 Comment: - Pt had c/o persistent CP, repeat CXR with rib views demonstrates fracture today - Non-displaced fractures of L 7th and 9th ribs without pneumothorax (3) Thrombocytopenia Code(s): D69.6 - THROMBOCYTOPENIA, UNSPECIFIED SNOMED Code(s): 601677459 Comment: - Likely due to alcohol abuse (4) DVT prophylaxis Code(s): UQD5377 - SNOMED Code(s): 632264524 Comment: - SCDs and encourage ambulation (5) Full code status Code(s): Z78.9 - OTHER SPECIFIED HEALTH STATUS SNOMED Code(s): 833796710 Status and Disposition: Inpatient, possible dc tomorrow
[2017-05-17] MEDS: traMADol TAB* 50 MG PO PRN (19:55)
[2017-05-18] MEDS: Omeprazole CAP* 20 MG PO SCH (07:25)
[2017-05-18] MEDS: Acetaminophen TAB* 325 MG PO PRN (07:25)
[2017-05-18] MEDS: Folic Acid TAB* 1 MG PO SCH (08:41)
[2017-05-18] MEDS: Multivitamins/Minerals TAB PO SCH (08:41)
[2017-05-18] MEDS: Thiamine TAB* 100 MG TAB PO SCH (08:41)
--- NOTE | 2017-05-18 10:49 | PN ---
Subjective Date of Service: 05/18/17 Interval History: Patient seen and examined at bedside. Pt states that he is feeling better today. He feels his gait is steady and denies dizziness. Reports that his left sided rib pain is improving. Denies fever, chills, shortness of breath, chest discomfort, N/V/D. Pt is anxious to be discharged today. Tele: Sinus rhythm, rate 70-80's. Family History: Unchanged from Admission Social History: Unchanged from Admission Past Medical History: Unchanged from Admission Objective Active Medications: Acetaminophen (Tylenol Tab*) 650 mg PO Q4H PRN Reason: PAIN Folic Acid (Folvite Tab*) 1 mg PO DAILY [facility] Lorazepam (Ativan Tab(*)) 0 mg PO Q4H PRN; Protocol Reason: WITHDRAWAL - ALCOHOL Multivitamins/Minerals (Theragran/Minerals Tab*) 1 tab PO DAILY [facility] Omeprazole (Prilosec Cap*) 20 mg PO 0730,1630 [facility] Thiamine HCl (Vitamin B-1 Tab*) 100 mg PO DAILY [facility] Tramadol HCl (Ultram*) 50 mg PO Q6H PRN Reason: PAIN Vital Signs 05/17/17 05/17/17 05/17/17 11:16 12:00 15:18 Temperature 98.2 F 98.8 F Pulse Rate 96 96 Respiratory 22 20 18 Rate Blood Pressure 117/75 129/84 (mmHg) O2 Sat by Pulse 99 98 Oximetry 05/17/17 05/17/17 05/17/17 15:56 19:29 19:55 Temperature 99.1 F Pulse Rate 92 Respiratory 18 17 18 Rate Blood Pressure 120/75 (mmHg) O2 Sat by Pulse 97 Oximetry 05/17/17 05/17/17 05/18/17 20:00 23:36 03:53 Temperature 99.0 F 98.7 F Pulse Rate 90 87 Respiratory 18 16 16 Rate Blood Pressure 149/86 124/82 (mmHg) O2 Sat by Pulse 98 99 Oximetry 05/18/17 05/18/17 07:18 07:28 Temperature 98.5 F Pulse Rate 96 Respiratory 16 16 Rate Blood Pressure 121/90 (mmHg) O2 Sat by Pulse 99 Oximetry Oxygen Devices in Use Now: None Appearance: NAD, laying in bed Ears/Nose/Mouth/Throat: Mucous Membranes Moist Respiratory: Symmetrical Chest Expansion and Respiratory Effort, Clear to Auscultation Cardiovascular: NL Sounds; No Murmurs; No JVD, RRR Abdominal: NL Sounds; No Tenderness; No Distention Extremities: No Edema Skin: No Rash or Ulcers Neurological: Alert and Oriented x 3, NL Muscle Strength and Tone Lines/Tubes/Other Access: Clean, Dry and Intact Peripheral IV - site benign Nutrition: Taking PO's Result Diagrams: 05/14/17 05:48 05/15/17 06:46 Additional Lab and Data: . Diagnostic Imaging: CXR - NAD CT brain - NAD CS CT - NAD CTA chest - No PE GB US - sludge and small stones, no wall thickening Assess/Plan/Problems-Billing Assessment: Mr. Catherine is a 56 yo gentleman with h/o alcoholism and remote PUD who presented with CP, difficulty with balance and tremulousness. - Patient Problems (1) Alcohol withdrawal Code(s): F10.239 - ALCOHOL DEPENDENCE WITH WITHDRAWAL, UNSPECIFIED SNOMED Code (s): 459640523 Comment: - Improving - Patient has not required lorazepam in ~48hrs (2) Rib fracture Code(s): S22.39XA - FRACTURE OF ONE RIB, UNSP SIDE, INIT FOR CLOS FX SNOMED Code(s): 95815297 Comment: - Pt had c/o persistent CP, repeat CXR with rib views demonstrates fracture today - Non-displaced fractures of L 7th and 9th ribs without pneumothorax (3) Thrombocytopenia Code(s): D69.6 - THROMBOCYTOPENIA, UNSPECIFIED SNOMED Code(s): 037329274 Comment: - Likely due to alcohol abuse (4) DVT prophylaxis Code(s): OLS8713 - SNOMED Code(s): 293780229 Comment: - SCDs and encourage ambulation (5) Full code status Code(s): Z78.9 - OTHER SPECIFIED HEALTH STATUS SNOMED Code(s): 094177436 Status and Disposition: Inpatient. Stable for discharge to home today.
[2017-05-18 11:39] VITALS: BP 134/82
--- NOTE | 2017-05-19 04:12 | DS ---
CC: Dr. Reid * DISCHARGE SUMMARY: DATE OF ADMISSION: 05/13/17 DATE OF DISCHARGE: 05/18/17 ATTENDING PHYSICIAN: Alban Quezada MD * (dictated by Helen Erickson NP) PRIMARY CARE PROVIDER: Dr. Han Reid. PRIMARY DIAGNOSES: 1. Alcohol withdrawal. 2. Left 7th and 9th nondisplaced rib fractures. 3. Chest pain, non cardiac. SECONDARY DIAGNOSES: 1. Chronic hypomagnesemia. 2. Chronic hypokalemia. 3. History of duodenal ulcer. STUDIES WHILE IN THE HOSPITAL: 1. Chest x-rays on 05/12/17: Radiologist impression: No active cardiopulmonary disease. 2. Brain CT on 05/12/17: Radiologist's impression: No acute intracranial pathology. 3. Cervical spine CT on 05/12/17. Radiologist's impression: No acute osseous injury to the cervical spine, mild degenerative changes. 4. Chest thoracic CTA on 05/12/17. Radiologist's impression: No CT evidence of acute pulmonary embolic disease. 3. Gallbladder ultrasound on 05/12/17, Radiologist's impression: Tiny gallstones versus gallbladder sludge without thickening of gallbladder wall or pericholecystic fluid. Common duct and pancreas not visualized due to bowel gas. 4. Ribs with chest x-ray on 05/16/17. Radiologist's impression: Findings suggestive of subacute nondisplaced fracture of the left hemothorax. No appreciable pneumothorax. DISCHARGE MEDICATIONS: New home medications: 1. Acetaminophen 650 mg oral every 4 hours as needed for pain. 2. Folic acid 1 mg oral daily. 3. Multivitamin 1 tablet oral daily. 4. Thiamine 100 mg oral daily. Continued home medications: Aspirin 325 mg oral daily. HISTORY OF PRESENT ILLNESS/HOSPITAL COURSE: Mr. Vuong is a 56-year-old male with past medical history significant for alcoholism who presented to the emergency room with complaints of chest pain that has been constant for a day. The patient also reports slipping and falling in his bathroom and having dizziness with associated nausea. The patient had reported that his previous drink was 3 days prior to coming in. The patient presented to the emergency room for further evaluation of his symptoms. While in the emergency room, the patient had labs significant for troponin 0.05. He had an EKG showing a sinus tachycardia with a rate of 106, left axis deviation, a PVC, and left anterior hemiblock. The patient had a chest CTA showing no evidence of a PE. He had an ultrasound of his gallbladder showing possible small gallstones or sludge without findings consistent with cholecystitis. Based off the patient's presentations and complaints of chest pain, the Hospitalists were asked to evaluate him for admission. While in the hospital, the patient was evaluated for his chest pain. His troponins were trended peaking at 0.06. This was appeared to be his baseline troponin. During the patient stay, he had 1 episode of hypokalemia and received potassium replacement. In addition, he had hypomagnesemia and received magnesium replacement. The patient was placed on WAM protocol during his stay. Initially, he was on Ativan taper for seizure prophylaxis. He was not requiring Ativan for approximately 48 hours. The patient was seen by physical therapy. The patient continued to complain of chest discomfort and has further chest imaging that noted a left 7th and 9th rib nondisplaced fractures. The patient's pain became under control. He reported his dizziness when up and ambulating resolved. It was felt that his chest discomfort was related to his rib fractures and not cardiac. The patient was felt to stable for discharge to home today. Mr. Vuong is stable for discharge to home today. Vital signs are as follows: Temperature 98.4, heart rate 82, respiratory rate 20, O2 sat 97% on room air, blood pressure 134/82. DISCHARGE PLAN: Mr. Vuong will be discharged to home. ACTIVITY: As tolerated. DIET: Regular diet. The patient has been strongly encouraged to stop drinking alcohol. He has been encouraged to follow up with AA and consider either outpatient or inpatient alcohol treatment. He has an appointment with his primary care provider, Dr. Han Reid, on 05/31/17 at 1 p.m. The patient has been asked to continue taking multivitamin, vitamin B1 and folic acid daily. For his left rib fracture , he has been encouraged to take [id number] Tylenol or ibuprofen as needed for pain. The patient has been asked to return to the emergency room for any chest pain or shortness of breath. This is a summarized report of a complex medical history and hospital stay. For further details, please see the entire medical record. TIME SPENT: Time for this discharge was 50 minutes, 25 minutes were spent face- to- face with the patient discussing discharge plans and instructions. CONDITION ON DISCHARGE: Stable. Reviewed by SHERI FINN 05/19/17 0735 [id number]/[facility] #: [id number] KEVIN
== END 2017-05-18 12:00 | disposition home or self-care (01) | DRG 897 ==
LOC: ED 19:37 → MEDTELE 05-13 01:34 → OBSVTOIN 05-14 07:18
PROVIDERS: ADMIT Internal Medicine; ATTEND Internal Medicine
DX: F10.239 Alcohol dependence with withdrawal, unspecified (principal); S22.42XA Multiple fractures of ribs, left side, initial encounter for closed fracture; D69.6 Thrombocytopenia, unspecified; Y90.0 Blood alcohol level of less than 20 mg/100 ml; W01.0XXA Fall on same level from slipping, tripping and stumbling without subsequent striking against object, initial encounter; E83.42 Hypomagnesemia; E87.6 Hypokalemia; R07.89 Other chest pain; Z79.82 Long term (current) use of aspirin; Y92.002 Bathroom of unspecified non-institutional (private) residence as the place of occurrence of the external cause; Z82.3 Family history of stroke; Z82.49 Family history of ischemic heart disease and other diseases of the circulatory system
CPT/HCPCS: 36415; 70450; 71010; 71111; 71275; 72125; 76705; 80048; 80053; 80320; 80329; 81003; 82140; 82550; 82553; 83036; 83605; 83690; 83735; 83880; 84443; 84484; 85025; 85379; 85610; 85730; 86140; 93005; A9270-GY; G0378; G0480; J2060; J2405; Q9967

== ENCOUNTER 2017-05-23 00:49 | Emergency (ER) | payer SELFPAY ==
[2017-05-23] MEDS ORDERED: Aspirin Low Dose CHEW TAB* 81 MG PO ONE (00:56)
[2017-05-23 01:17] LABS: Hematocrit 37 % (42-52); Hemoglobin 12.1 g/dl (14.0-18.0); Mean Corpuscular HGB Conc 32 g/dl (31-36); Mean Corpuscular Hemoglobin 34 pg (27-31); Mean Corpuscular Volume 104 fL (80-94); Mean Platelet Volume 8 um3 (7.4-10.4); Red Blood Count 3.59 10^6/ul (4.0-5.4); Red Cell Distribution Width 17 % (10.5-15); White Blood Count 7.3 10^3/ul (3.5-10.8)
[2017-05-23 01:35] LABS: Albumin 4.3 g/dL (3.2-5.2); BUN/Creatinine Ratio 10.8 (8-20); Calcium 9.1 mg/dL (8.6-10.3); EGFR African American 139.7 (>60); EGFR Non-African American 108.6 (>60); Globulin 3.3 g/dL (2-4); Magnesium 1.7 mg/dL (1.9-2.7); Potassium 4.1 mmol/L (3.5-5.0); Total Bilirubin 0.4 mg/dL (0.2-1.0); Total Protein 7.6 g/dL (6.4-8.9)
[2017-05-23 01:37] LABS: Add Diff/Slide Review? Slide Review Added; Comments Flag Yes
[2017-05-23] MEDS ORDERED: Ketorolac INJ* 30 MG/ML 1 ML VIAL ONE (01:52)
[2017-05-23] MEDS ORDERED: Ketorolac INJ* 30 MG/ML 1 ML VIAL IV PUSH ONE (01:54)
[2017-05-23 02:03] LABS: Microcytosis 2+
[2017-05-23 02:22] LABS: Troponin I 0.04 ng/mL (<0.04)
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
[2017-05-23] MEDS ORDERED: Morphine INJ* 2 MG/ML 1 ML SYRINGE IV ONE (02:43)
[2017-05-23 07:04] VITALS: BP 129/82
--- NOTE | 2017-05-23 07:50 | RAD ---
HISTORY: Chest pain COMPARISONS: May 12, 2017 VIEWS: 4: Frontal dual-energy and lateral views of the chest. FINDINGS: CARDIOMEDIASTINAL SILHOUETTE: The cardiomediastinal silhouette is normal. KIRSTIE: The kirstie are normal. PLEURA: The costophrenic angles are sharp. No pleural abnormalities are noted. LUNG PARENCHYMA: The lungs are clear. ABDOMEN: The upper abdomen is clear. There is no subphrenic gas. BONES AND SOFT TISSUES: Mild degenerative changes are noted OTHER: None. IMPRESSION: NO ACTIVE CARDIOPULMONARY DISEASE.
== END 2017-05-23 07:20 | disposition home or self-care (01) ==
LOC: ED 00:49
DX: R07.9 Chest pain, unspecified (principal)
CPT/HCPCS: 36415; 71020; 80053; 83605; 83735; 84484; 85025; 93005; 96374; 99284; J1885; J2270

== ENCOUNTER 2017-05-23 07:29 | Inpatient (IN) | payer SELFPAY ==
[2017-05-23] MEDS ORDERED: NS 0.9% 1000 ML* 1,000 ML IV ONE ×2 (08:08→10:54)
[2017-05-23 08:17] LABS: Hematocrit 39 % (42-52); Hemoglobin 12.8 g/dl (14.0-18.0); Mean Corpuscular HGB Conc 33 g/dl (31-36); Mean Corpuscular Hemoglobin 35 pg (27-31); Mean Corpuscular Volume 105 fL (80-94); Mean Platelet Volume 8 um3 (7.4-10.4); Red Blood Count 3.69 10^6/ul (4.0-5.4); Red Cell Distribution Width 16 % (10.5-15); White Blood Count 8.5 10^3/ul (3.5-10.8)
[2017-05-23 08:23] LABS: Albumin 4.5 g/dL (3.2-5.2); BUN/Creatinine Ratio 13.6 (8-20); Calcium 9.6 mg/dL (8.6-10.3); EGFR African American 125.9 (>60); EGFR Non-African American 97.9 (>60); Globulin 3.3 g/dL (2-4); Magnesium 1.7 mg/dL (1.9-2.7); Potassium 4.2 mmol/L (3.5-5.0); Total Bilirubin 0.5 mg/dL (0.2-1.0); Total Protein 7.8 g/dL (6.4-8.9)
--- NOTE | 2017-05-23 08:26 | RAD ---
HISTORY: Dizziness COMPARISONS: May 12, 2017 TECHNIQUE: Multiple contiguous axial CT scans were obtained of the head without intravenous contrast. FINDINGS: HEMORRHAGE/INFARCT: There is no hemorrhage or acute infarct. MASSES/SHIFT: There is no mass or shift. EXTRA-AXIAL SPACES: There are no extra-axial fluid collections. SULCI AND VENTRICLES: The sulci and ventricles are normal in size and position for the patient's stated age. CEREBRUM: There are no focal parenchymal abnormalities. BRAINSTEM: There are no focal parenchymal abnormalities. CEREBELLUM: There are no focal parenchymal abnormalities. VESSELS: The vessels are grossly normal. PARANASAL SINUSES: The paranasal sinuses are clear. ORBITS: The orbits are unremarkable. BONES AND SOFT TISSUE: No bone or soft tissue abnormalities are noted. OTHER: None IMPRESSION: NO ACUTE INTRACRANIAL PATHOLOGY.
[2017-05-23 08:28] LABS: Troponin I 0.05 ng/mL (<0.04)
[2017-05-23 08:55] LABS: TSH (Thyroid Stimulating Horm) 0.55 mcIU/mL (0.34-5.60)
[2017-05-23] MEDS ORDERED: Acetaminophen TAB* 325 MG PO ONE (09:05)
[2017-05-23] MEDS ORDERED: Thiamine IV* 100 MG/ML 2 ML VIAL IM ONE (14:05)
[2017-05-23] MEDS ORDERED: LORazepam INJ* 2 MG/ML 1 ML VIAL IM SCH (15:00)
[2017-05-23] MEDS: LORazepam TAB(*) 1 MG PO SCH ×3 (16:12→23:54)
[2017-05-23] MEDS: Acetaminophen TAB* 325 MG PO PRN ×2 (16:12→21:28)
[2017-05-23 16:30] LABS: Hematocrit 38 % (42-52); Hemoglobin 12.5 g/dl (14.0-18.0); Mean Corpuscular HGB Conc 33 g/dl (31-36); Mean Corpuscular Hemoglobin 35 pg (27-31); Mean Corpuscular Volume 104 fL (80-94); Mean Platelet Volume 8 um3 (7.4-10.4); Red Blood Count 3.63 10^6/ul (4.0-5.4); Red Cell Distribution Width 16 % (10.5-15); White Blood Count 8.2 10^3/ul (3.5-10.8)
[2017-05-23 16:36] LABS: EGFR African American 151.5 (>60); EGFR Non-African American 117.8 (>60)
[2017-05-23] MEDS ORDERED: LORazepam INJ* 2 MG/ML 1 ML VIAL IVPB SCH (17:14)
[2017-05-23] MEDS: LORazepam INJ* 2 MG/ML 1 ML VIAL IV PUSH SCH ×2 (17:20→21:25)
[2017-05-23] MEDS: Ondansetron INJ* 2 MG/ML VIAL IV PRN ×2 (17:21→21:51)
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
--- NOTE | 2017-05-23 20:49 | HP ---
CC: Dr. Reid * HISTORY AND PHYSICAL: DATE OF ADMISSION: 05/23/17 PRIMARY CARE PHYSICIAN: Dr. Reid. CHIEF COMPLAINT: Dizziness and chest pain. HISTORY OF PRESENT ILLNESS: The patient is a 56-year-old gentleman recently discharged from [facility] who presents with chest pain in the center of his chest, which he says started yesterday. It is reproducible. He denies any shortness of breath with it. He says also his fingers and toes are tingling. He is feeling dizzy, but he says it is more lightheadedness when he gets up. He has also had some nausea and vomiting that was earlier today. He feels at times he is going to pass out. He also says he sweats occasionally, but denies fevers. He denies any palpitations. The patient has history of alcohol abuse, says he has not had a drink in several days, but his alcohol level was 170 when he presents to the hospital. PAST MEDICAL HISTORY: Significant for alcoholism, chronic hypomagnesemia, chronic hypokalemia, history of duodenal ulcer with GI bleed in January of 2017. CURRENT MEDICATIONS: At home: 1. Thiamine 100 mg daily. 2. Multivitamin 1 tablet daily. 3. Folic acid 1 mg daily. 4. Aspirin 325 mg daily. 5. Acetaminophen 650 mg every 4 hours as needed. ALLERGIES: He has got no known drug allergies. FAMILY HISTORY: Mother had CVA, at age 62. Father had cardiac issues, alive and well at 85. SOCIAL HISTORY: No tobacco or drug use. He says he does not drink, but he has got alcohol in his blood stream. REVIEW OF SYSTEMS: A 14-point review of systems was completed with the patient. All pertinent positives and negatives are in the history of present illness, otherwise is negative. PHYSICAL EXAMINATION GENERAL: Pleasant gentleman lying in bed, in no acute distress. VITAL SIGNS: Blood pressure 145/87, pulse ox 97%, respiratory rate 17 breaths per minute, heart rate 98 to 102 beats per minute, temperature is 98.1 degrees. HEENT: Normocephalic, atraumatic. Pupils are equal, round, and reactive to light. He has got dry mucous membranes. NECK: Supple. No JVD, bruits, palpable thyroid, or lymphadenopathy. CHEST: Clear to auscultation and percussion bilaterally. CARDIOVASCULAR: S1, S2 appreciated. Increased rate and regular rhythm. ABDOMEN: Positive bowel sounds in all 4 quadrants. Soft, nontender, nondistended. EXTREMITIES: No cyanosis, clubbing, or edema. +2 pulses bilaterally. NEURO: Alert and oriented x3. He has got bilateral intention tremors. He moves all extremities. SKIN: No evidence of rash or lesions. DIAGNOSTIC STUDIES/LAB DATA: Serum alcohol level was 170. White count 8.5, hemoglobin 12.9, hematocrit 39, platelets 374. Sodium 142, potassium 4.2, chloride 104, CO2 of 23, BUN 11, creatinine 0.81, glucose 82, lactic acid 3.1, troponin 0.05. Brain CT was read as no acute intracranial pathology. EKG is pending. ASSESSMENT AND PLAN: 1. Dizziness and chest pain. The patient likely started suffering from alcohol withdrawal. He is an active drinker, but is denying it. I will place him on the [facility] protocol. I will place him on telemetry. His troponins are chronically high and will not even cycle them at this point, because this is no way could be a cardiac issue. His lactic acid was also chronically high and we will not pursue that as well. I have asked Social Work to consult, but unfortunately the patient appears chronic and has come back several times in the last few weeks. 2. Hypertension. Blood pressure is high. I will start him on some metoprolol. 3. FEN. Regular diet. 4. DVT prophylaxis. I will put him on heparin subcu. 5. The patient is a full code. TIME SPENT: Over 75 minutes was spent on this H and P, more than 40 minutes of which was spent in direct [id number] contact with the patient in evaluation, physical exam, counseling, and coordination of care. [id number]/CPS #: [id number] MTDD
[2017-05-23] MEDS: Heparin VIAL(*) 5000 UNITS/ML VIAL (FIVE THOUSAND) SUBCUT SCH (21:28)
[2017-05-24] MEDS: Heparin VIAL(*) 5000 UNITS/ML VIAL (FIVE THOUSAND) SUBCUT SCH ×3 (05:12→20:44)
[2017-05-24] MEDS: LORazepam TAB(*) 1 MG PO SCH ×4 (07:39→20:55)
[2017-05-24] MEDS: Thiamine TAB* 100 MG TAB PO SCH (07:40)
[2017-05-24] MEDS: Multivitamins/Minerals TAB PO SCH (07:40)
[2017-05-24] MEDS: Folic Acid TAB* 1 MG PO SCH (07:40)
[2017-05-24] MEDS ORDERED: Aspirin TAB* 325 MG PO SCH (09:00)
[2017-05-24] MEDS ORDERED: Multivitamins/Minerals TAB PO SCH (09:00)
[2017-05-24] MEDS ORDERED: Folic Acid TAB* 1 MG PO SCH (09:00)
[2017-05-24] MEDS ORDERED: Thiamine TAB* 100 MG TAB PO SCH (09:00)
[2017-05-24] MEDS: Acetaminophen TAB* 325 MG PO PRN ×3 (14:02→21:03)
--- NOTE | 2017-05-24 14:46 | PN ---
Subjective Date of Service: 05/24/17 Interval History: Patient seen this morning. Denies complaints. Says he is feeling much better. Says he feels shaky on his feet but fine when laying down. Denies being out of bed yet today. As per nursing he had been ambulating around the unit multiple times in the morning. Discussed alcohol treatment options with the patient. He states he feels that AA is adequate despite the fact that he has been hospitalized multiple times this year. Family History: Unchanged from Admission Social History: Unchanged from Admission Past Medical History: Unchanged from Admission Objective Active Medications: Acetaminophen (Tylenol Tab*) 650 mg PO Q4H PRN Aspirin (Aspirin Tab*) 325 mg PO DAILY ABHIJIT Folic Acid (Folvite Tab*) 1 mg PO DAILY ABHIJIT Heparin Sodium (Porcine) (Heparin Vial(*)) 5,000 units SUBCUT Q8HR ABHIJIT Lorazepam (Ativan Tab(*)) 0 - 6 mg PO .PER WA PROTOCOL ABHIJIT Lorazepam (Ativan Tab(*)) 2 mg PO Q12H ABHIJIT Lorazepam (Ativan Inj*) 0 - 6 mg IV PUSH .PER WA PROTOCOL ABHIJIT Multivitamins/Minerals (Theragran/Minerals Tab*) 1 tab PO DAILY ABHIJIT Ondansetron HCl (Zofran Inj*) 4 mg IV Q4H PRN Thiamine HCl (Vitamin B-1 Tab*) 100 mg PO DAILY [facility] Vital Signs 05/23/17 05/23/17 05/23/17 14:46 15:00 15:30 Temperature Pulse Rate 100 97 Respiratory 20 19 24 Rate Blood Pressure 162/87 (mmHg) O2 Sat by Pulse 99 98 Oximetry 05/24/17 05/24/17 11:20 13:18 Temperature 98.7 F 98.6 F Pulse Rate 90 94 Respiratory 18 20 Rate Blood Pressure 148/95 149/97 (mmHg) O2 Sat by Pulse 99 100 Oximetry Oxygen Devices in Use Now: None Appearance: Middle-aged, M, laying in bed in NAD Eyes: No Scleral Icterus Ears/Nose/Mouth/Throat: Mucous Membranes Moist Neck: NL Appearance and Movements; NL JVP Respiratory: Symmetrical Chest Expansion and Respiratory Effort, Clear to Auscultation Cardiovascular: NL Sounds; No Murmurs; No JVD, RRR Abdominal: NL Sounds; No Tenderness; No Distention Lymphatic: No Cervical Adenopathy Extremities: No Edema, - Neurological: - - Minimal tremor in outstretched hands Result Diagrams: 05/23/17 16:03 05/23/17 16:03 Additional Lab and Data: Assess/Plan/Problems-Billing Assessment: EtOH withdrawal in a 56 yo M - Patient Problems (1) Alcohol withdrawal Current Visit: No Comment: Receiving standing Ativan. Will stop this and monitor WAM needs. Continue thiamine, folate, MVM. Seems to be doing OK from physical standpoint but mentally still cloudy. (2) DVT prophylaxis Current Visit: No Comment: HSQ
[2017-05-24] MEDS: Ondansetron INJ* 2 MG/ML VIAL IV PRN (15:17)
[2017-05-24] MEDS: LORazepam INJ* 2 MG/ML 1 ML VIAL IV PUSH SCH (20:50)
[2017-05-25] MEDS: Acetaminophen TAB* 325 MG PO PRN ×5 (01:03→22:32)
[2017-05-25] MEDS: Heparin VIAL(*) 5000 UNITS/ML VIAL (FIVE THOUSAND) SUBCUT SCH ×3 (05:02→22:19)
[2017-05-25] MEDS: Multivitamins/Minerals TAB PO SCH (08:06)
[2017-05-25] MEDS: Thiamine TAB* 100 MG TAB PO SCH (08:06)
[2017-05-25] MEDS: Folic Acid TAB* 1 MG PO SCH (08:06)
[2017-05-25] MEDS: Ondansetron INJ* 2 MG/ML VIAL IV PRN (14:39)
--- NOTE | 2017-05-25 15:06 | PN ---
Subjective Date of Service: 05/25/17 Interval History: Patient seen this morning and throughout the day. Reports feeling close to his baseline this AM but as the day went on had some nausea and increasing tremor and BPs. Family History: Unchanged from Admission Social History: Unchanged from Admission Past Medical History: Unchanged from Admission Objective Active Medications: Acetaminophen (Tylenol Tab*) 650 mg PO Q4H PRN PRN Reason: PAIN Last Admin: 05/25/17 09:57 Dose: 650 mg Folic Acid (Folvite Tab*) 1 mg PO DAILY [facility] Last Admin: 05/25/17 08:06 Dose: 1 mg Heparin Sodium (Porcine) (Heparin Vial(*)) 5,000 units SUBCUT Q8HR [facility] Last Admin: 05/25/17 14:40 Dose: 5,000 units Lorazepam (Ativan Tab(*)) 0 - 6 mg PO .PER [facility] PROTOCOL [facility] PRN Reason: Protocol Last Admin: 05/24/17 18:01 Dose: 2 mg Lorazepam (Ativan Inj*) 0 - 6 mg IV PUSH .PER [facility] PROTOCOL [facility] PRN Reason: Protocol Last Admin: 05/24/17 20:50 Dose: 2 mg Multivitamins/Minerals (Theragran/Minerals Tab*) 1 tab PO DAILY [facility] Last Admin: 05/25/17 08:06 Dose: 1 tab Ondansetron HCl (Zofran Inj*) 4 mg IV Q4H PRN PRN Reason: NAUSEA Last Admin: 05/25/17 14:39 Dose: 4 mg Thiamine HCl (Vitamin B-1 Tab*) 100 mg PO DAILY [facility] Last Admin: 05/25/17 08:06 Dose: 100 mg Vital Signs 05/24/17 05/24/17 05/24/17 15:10 15:46 16:57 Temperature 98.8 F 98.7 F Pulse Rate 105 120 Respiratory 20 20 16 Rate Blood Pressure 149/99 174/108 (mmHg) O2 Sat by Pulse 100 100 Oximetry 05/24/17 05/24/17 05/24/17 19:10 20:01 20:12 Temperature 98.7 F 99.2 F Pulse Rate 90 100 Respiratory 16 18 18 Rate Blood Pressure 128/89 174/111 (mmHg) O2 Sat by Pulse 97 99 Oximetry 05/25/17 05/25/17 05/25/17 11:02 12:00 14:00 Temperature 98.2 F 98.8 F 98.9 F Pulse Rate 92 95 101 Respiratory 20 20 20 Rate Blood Pressure 149/93 162/103 161/100 (mmHg) O2 Sat by Pulse 99 100 99 Oximetry Oxygen Devices in Use Now: None Appearance: Middle-aged, M, laying in bed in NAD Eyes: No Scleral Icterus Ears/Nose/Mouth/Throat: Mucous Membranes Moist Neck: NL Appearance and Movements; NL JVP Respiratory: Symmetrical Chest Expansion and Respiratory Effort, Clear to Auscultation Cardiovascular: NL Sounds; No Murmurs; No JVD, RRR Abdominal: NL Sounds; No Tenderness; No Distention Lymphatic: No Cervical Adenopathy Extremities: No Edema Skin: No Rash or Ulcers Neurological: Alert and Oriented x 3, - - mild tremor in outstretched hands Result Diagrams: 05/23/17 16:03 05/23/17 16:03 Additional Lab and Data: Assess/Plan/Problems-Billing Assessment: EtOH withdrawal in a 56 yo M - Patient Problems (1) Alcohol withdrawal Current Visit: No Comment: Not ready for discharge today, continue to monitor on [facility] protocol and treat with PO Ativan. Continue thiamine, folate, MVM. (2) DVT prophylaxis Current Visit: No Comment: HSQ
[2017-05-25] MEDS: LORazepam TAB(*) 1 MG PO SCH ×2 (15:15→22:20)
[2017-05-26] MEDS: LORazepam TAB(*) 1 MG PO SCH ×5 (02:21→23:59)
[2017-05-26 05:44] LABS: Hematocrit 39 % (42-52); Hemoglobin 12.6 g/dl (14.0-18.0); Mean Corpuscular HGB Conc 32 g/dl (31-36); Mean Corpuscular Hemoglobin 34 pg (27-31); Mean Corpuscular Volume 104 fL (80-94); Mean Platelet Volume 9 um3 (7.4-10.4); Red Blood Count 3.73 10^6/ul (4.0-5.4); Red Cell Distribution Width 17 % (10.5-15); White Blood Count 5.4 10^3/ul (3.5-10.8)
[2017-05-26] MEDS: Heparin VIAL(*) 5000 UNITS/ML VIAL (FIVE THOUSAND) SUBCUT SCH ×3 (05:52→21:03)
[2017-05-26] MEDS: Folic Acid TAB* 1 MG PO SCH (09:05)
[2017-05-26] MEDS: Thiamine TAB* 100 MG TAB PO SCH (09:05)
[2017-05-26] MEDS: Multivitamins/Minerals TAB PO SCH (09:05)
--- NOTE | 2017-05-26 12:23 | PN ---
Subjective Date of Service: 05/26/17 Interval History: Patient seen this morning. Says he feels "OK". Walked to the bathroom and back this morning, did not feel unsteady. Acknowledges that he had increased symptoms yesterday afternoon with tremor, nausea. Denies any history of HTN. Family History: Unchanged from Admission Social History: Unchanged from Admission Past Medical History: Unchanged from Admission Objective Active Medications: Acetaminophen (Tylenol Tab*) 650 mg PO Q4H PRN Folic Acid (Folvite Tab*) 1 mg PO DAILY [facility] Heparin Sodium (Porcine) (Heparin Vial(*)) 5,000 units SUBCUT Q8HR [facility] Lorazepam (Ativan Tab(*)) 0 - 6 mg PO .PER [facility] PROTOCOL [facility] Multivitamins/Minerals (Theragran/Minerals Tab*) 1 tab PO DAILY [facility] Ondansetron HCl (Zofran Inj*) 4 mg IV Q4H PRN Thiamine HCl (Vitamin B-1 Tab*) 100 mg PO DAILY [facility] Vital Signs 05/25/17 05/25/17 05/25/17 14:00 15:15 16:02 Temperature 98.9 F 98.5 F Pulse Rate 101 105 Respiratory 20 22 20 Rate Blood Pressure 161/100 151/106 (mmHg) O2 Sat by Pulse 99 98 Oximetry 05/25/17 05/25/17 05/25/17 17:15 18:39 19:00 Temperature 98.5 F Pulse Rate 93 Respiratory 18 18 20 Rate Blood Pressure 136/88 (mmHg) O2 Sat by Pulse 99 Oximetry 05/25/17 05/25/17 05/25/17 20:00 21:00 22:20 Temperature Pulse Rate Respiratory 20 16 20 Rate Blood Pressure (mmHg) O2 Sat by Pulse Oximetry 05/26/17 05/26/17 05/26/17 00:03 00:07 01:00 Temperature 98.5 F Pulse Rate 101 Respiratory 16 18 16 Rate Blood Pressure 150/104 (mmHg) O2 Sat by Pulse 99 Oximetry 05/26/17 05/26/17 05/26/17 02:11 02:21 03:00 Temperature 98.4 F Pulse Rate 96 Respiratory 16 16 16 Rate Blood Pressure 139/93 (mmHg) O2 Sat by Pulse 99 Oximetry 05/26/17 05/26/17 05/26/17 04:06 04:21 06:57 Temperature 98.2 F 98.1 F Pulse Rate 80 79 Respiratory 16 17 16 Rate Blood Pressure 118/83 129/89 (mmHg) O2 Sat by Pulse 96 100 Oximetry 05/26/17 05/26/17 05/26/17 07:20 07:21 07:27 Temperature 97.8 F 98.4 F Pulse Rate 92 85 Respiratory 18 16 18 Rate Blood Pressure 143/100 143/95 (mmHg) O2 Sat by Pulse 100 100 Oximetry 05/26/17 05/26/17 09:10 09:57 Temperature 98.2 F Pulse Rate 87 Respiratory 18 18 Rate Blood Pressure 147/105 (mmHg) O2 Sat by Pulse 100 Oximetry Oxygen Devices in Use Now: None Appearance: Middle-aged, M, laying in bed in NAD Eyes: No Scleral Icterus Ears/Nose/Mouth/Throat: Mucous Membranes Moist Neck: NL Appearance and Movements; NL JVP Respiratory: Symmetrical Chest Expansion and Respiratory Effort, Clear to Auscultation Cardiovascular: NL Sounds; No Murmurs; No JVD, RRR Abdominal: NL Sounds; No Tenderness; No Distention Lymphatic: No Cervical Adenopathy Extremities: No Edema Skin: No Rash or Ulcers Neurological: - - Alert, mild tremor in outstretched hands Result Diagrams: 05/26/17 05:01 05/23/17 16:03 Additional Lab and Data: Assess/Plan/Problems-Billing Assessment: EtOH withdrawal in a 56 yo M - Patient Problems (1) Alcohol withdrawal Current Visit: No Comment: Continue to monitor on [facility] protocol and treat with PO Ativan. BPs elevated, suspect this is due to ongoing withdrawal. Continue thiamine, folate, MVM. (2) DVT prophylaxis Current Visit: No Comment: HSQ Status and Disposition: Potential discharge in next 24 hours
[2017-05-26] MEDS: Acetaminophen TAB* 325 MG PO PRN ×2 (13:54→21:00)
[2017-05-26] MEDS ORDERED: Al Hydrox/Mg Hydrox/Simet LIQ* 30 ML UDC PO PRN (20:47)
[2017-05-27] MEDS: Heparin VIAL(*) 5000 UNITS/ML VIAL (FIVE THOUSAND) SUBCUT SCH ×2 (08:25→12:23)
[2017-05-27] MEDS: Thiamine TAB* 100 MG TAB PO SCH (09:01)
[2017-05-27] MEDS: Acetaminophen TAB* 325 MG PO PRN (09:01)
[2017-05-27] MEDS: Multivitamins/Minerals TAB PO SCH (09:01)
[2017-05-27] MEDS: Folic Acid TAB* 1 MG PO SCH (09:01)
--- NOTE | 2017-05-27 09:31 | PN ---
Subjective Date of Service: 05/27/17 Interval History: Patient seen this morning. Says he feels back to baseline today. Ambulated to bathroom and back so far today, feels steady. Reports mild headache. 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 I strongly advised he find someone else to drive him as I do not feel that he is back to driving form yet. Family History: Unchanged from Admission Social History: Unchanged from Admission Past Medical History: Unchanged from Admission Objective Active Medications: Acetaminophen (Tylenol Tab*) 650 mg PO Q4H PRN Al Hydrox/Mg Hydrox/Simethicone (Maalox Plus*) 30 ml PO Q6H NM Folic Acid (Folvite Tab*) 1 mg PO DAILY [facility] Heparin Sodium (Porcine) (Heparin Vial(*)) 5,000 units SUBCUT Q8HR [facility] Lorazepam (Ativan Tab(*)) 0 - 6 mg PO .PER [facility] PROTOCOL [facility] Multivitamins/Minerals (Theragran/Minerals Tab*) 1 tab PO DAILY [facility] Ondansetron HCl (Zofran Inj*) 4 mg IV Q4H PRN Thiamine HCl (Vitamin B-1 Tab*) 100 mg PO DAILY [facility] Vital Signs 05/26/17 05/26/17 05/26/17 09:57 11:10 12:20 Temperature 98.2 F 97.9 F Pulse Rate 87 88 Respiratory 18 16 16 Rate Blood Pressure 147/105 140/94 (mmHg) O2 Sat by Pulse 100 99 Oximetry 05/27/17 05/27/17 05/27/17 03:12 07:37 08:00 Temperature 98.9 F 98.1 F Pulse Rate 83 86 Respiratory 16 18 16 Rate Blood Pressure 140/94 147/97 (mmHg) O2 Sat by Pulse 99 99 Oximetry Oxygen Devices in Use Now: None Appearance: Middle-aged, M, laying in bed in NAD Eyes: No Scleral Icterus Ears/Nose/Mouth/Throat: Mucous Membranes Moist Neck: NL Appearance and Movements; NL JVP Respiratory: Symmetrical Chest Expansion and Respiratory Effort, Clear to Auscultation Cardiovascular: - - Mild tachycardia, no m/g/r Abdominal: NL Sounds; No Tenderness; No Distention Lymphatic: No Cervical Adenopathy Extremities: No Edema Skin: No Rash or Ulcers Neurological: Alert and Oriented x 3, - - no tremor in outstretched hands Result Diagrams: 05/26/17 05:01 05/23/17 16:03 Additional Lab and Data: Assess/Plan/Problems-Billing Assessment: EtOH withdrawal in a 56 yo M - Patient Problems (1) Alcohol withdrawal Current Visit: No Comment: Symptoms overall seem to be improving, I think he has received prn Ativan more than he needed. Has had a few isolated elevated BPs. Will monitor over this morning, ambulate around the unit, potentially d/c later today. Continue thiamine, folate, MVM. (2) DVT prophylaxis Current Visit: No Comment: HSQ Status and Disposition: Potential discharge today. I've encouraged the patient to find someone else to drive him to [place]
[2017-05-27 12:01] VITALS: BP 124/98
--- NOTE | 2017-05-28 03:23 | DS ---
DISCHARGE SUMMARY: DATE OF ADMISSION: 05/23/17 DATE OF DISCHARGE: 05/27/17 PRINCIPAL DISCHARGE DIAGNOSIS: Alcohol withdrawal. STUDIES DONE DURING HOSPITALIZATION: CT of the brain. Impression: No acute intracranial pathology. DISCHARGE MEDICATION REGIMEN: 1. Aspirin 81 mg by mouth daily. 2. Thiamine 100 mg by mouth daily. 2. Multivitamin 1 tablet by mouth daily. 3. Folic acid 1 mg by mouth daily. 6. Tylenol 650 mg by mouth every 4 hours as needed for pain. HISTORY OF PRESENT ILLNESS AND HOSPITAL SUMMARY: Please see the full history and physical by Dr. Mihn Sweeney for full details. Briefly, Mr. Vuong is a 56-year- old man with frequent admissions for alcohol withdrawal, who presented to the hospital with reported dizziness and chest pain. The patient had an alcohol level of 170 on arrival to the hospital. He had a minimally elevated troponin, which was trended and normalized. No concerning EKG changes. The patient was treated for alcohol withdrawal over the following days. He did have episodes of hypertension, which overall improved, although still was having some intermittent episodes. He was ambulating around the unit for about 2 days prior to discharge with no issues. He will be discharged home. As previously, it was recommended to him to look into potential inpatient rehab options; however, he is not open to this at this time. He states that he will continue to go to Alcoholics Anonymous, which does not seem to be particularly helpful for him. He also states that he is going to be moving to [place] in the next day or two. 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 I encouraged him not to drive at this time and instead to see if he could find somebody to move his belongings for him. TIME SPENT: Total time spent on this discharge, 45 minutes. This is a summary of the hospitalization. Please see the full medical record for further details. [id number]/[facility] #: [id number] MTDD
== END 2017-05-27 13:35 | disposition home or self-care (01) | DRG 897 ==
LOC: ED 07:29 → MEDTELE 14:02 → OBSVTOIN 05-24 14:48 → MED 05-26 15:34
PROVIDERS: ADMIT Internal Medicine; ATTEND Hospitalist
DX: F10.239 Alcohol dependence with withdrawal, unspecified (principal); E83.42 Hypomagnesemia; I10 Essential (primary) hypertension; Z79.82 Long term (current) use of aspirin; Y90.6 Blood alcohol level of 120-199 mg/100 ml; E87.6 Hypokalemia; Z82.49 Family history of ischemic heart disease and other diseases of the circulatory system; Z82.3 Family history of stroke; I25.2 Old myocardial infarction; J44.9 Chronic obstructive pulmonary disease, unspecified; K21.9 Gastro-esophageal reflux disease without esophagitis; F41.9 Anxiety disorder, unspecified; D64.9 Anemia, unspecified
CPT/HCPCS: 36415; 70450; 80053; 80320; 82565; 83605; 83735; 84443; 84484; 84520; 85025; 85610; 85730; 93005; A9270-GY; G0378; G0480; J1644; J2060; J2405

== ENCOUNTER 2017-06-01 14:05 | Inpatient (IN) | payer SELFPAY ==
[2017-06-01] MEDS ORDERED: Thiamine IV* 100 MG, Folic Acid IV* 1 MG, Multiple Vitamin IV ADULT* 10 ML in NS 0.9% 1... IV ONE (15:10)
--- NOTE | 2017-06-01 15:30 | RAD ---
INDICATION: Syncope with trauma to the right supraorbital area. + EtOH COMPARISON: Chest x-ray dated TECHNIQUE: PA and lateral views of the chest were obtained. FINDINGS: The heart and mediastinum are normal in size and contour. On the AP view there is a well-circumscribed 2.1 cm structure at the left upper mediastinum below the arch of the aorta that, when compared to the CTA dated January 31, 2017, is revealed to be the right mainstem pulmonary artery. There is persistent elevation of the right hemidiaphragm. The lungs are grossly clear. There is no evidence of large pleural effusion. Visualized bones are normal for the patient's age. There is no radiographic evidence of free air beneath the diaphragm IMPRESSION: No radiographic evidence of acute cardiopulmonary disease.
[2017-06-01 15:31] LABS: Urine Bilirubin Negative (Negative); Urine Glucose Negative (Negative); Urine Nitrite Negative (Negative)
--- NOTE | 2017-06-01 15:34 | RAD ---
HISTORY: Syncope, fall COMPARISONS: May 23, 2017 TECHNIQUE: Multiple contiguous axial CT scans were obtained of the head without intravenous contrast. FINDINGS: HEMORRHAGE/INFARCT: There is no hemorrhage or acute infarct. MASSES/SHIFT: There is no mass or shift. EXTRA-AXIAL SPACES: There are no extra-axial fluid collections. SULCI AND VENTRICLES: The sulci and ventricles are normal in size and position for the patient's stated age. CEREBRUM: There are no focal parenchymal abnormalities. BRAINSTEM: There are no focal parenchymal abnormalities. CEREBELLUM: There are no focal parenchymal abnormalities. VESSELS: The vessels are grossly normal. PARANASAL SINUSES: The paranasal sinuses are clear. ORBITS: The orbits are unremarkable. BONES AND SOFT TISSUE: No bone or soft tissue abnormalities are noted. OTHER: None IMPRESSION: NO ACUTE INTRACRANIAL PATHOLOGY.
[2017-06-01 15:42] LABS: Benzodiazepine Urine Screen None Detected (None Detect)
[2017-06-01 15:49] LABS: Hematocrit 41 % (42-52); Hemoglobin 13.6 g/dl (14.0-18.0); Mean Corpuscular HGB Conc 33 g/dl (31-36); Mean Corpuscular Hemoglobin 33 pg (27-31); Mean Corpuscular Volume 101 fL (80-94); Mean Platelet Volume 8 um3 (7.4-10.4); Red Blood Count 4.09 10^6/ul (4.0-5.4); Red Cell Distribution Width 16 % (10.5-15)
--- NOTE | 2017-06-01 16:07 | RAD ---
HISTORY: Syncope, fall, intoxication COMPARISONS: May 12, 2017 TECHNIQUE: Multiple contiguous axial CT scans were obtained of the cervical spine without intravenous contrast, with coronal and sagittal multiplanar reformations. FINDINGS: The study is limited by patient motion artifact. BRAIN: The visualized brain is unremarkable CENTRAL CANAL: Evaluation of the central canal is limited on CT technique, however there is no obvious canalicular mass or epidural hemorrhage. ALIGNMENT: The alignment is normal, without subluxation or dislocation. VERTEBRAL BODIES: There is mild multilevel anterolateral marginal osteophyte formation. There is no displaced fracture. JOINTS: There is no subluxation or dislocation. There is mild uncovertebral and facet hypertrophy. MUSCULATURE: Unremarkable INTERVERTEBRAL DISCS: There is diffuse loss of intervertebral disc height. AXIAL IMAGES: On axial images, there is no osseous neural foraminal narrowing or central canal stenosis. SOFT TISSUES: The visualized soft tissues of the neck are unremarkable. The prevertebral fat stripe is preserved. OTHER: None. IMPRESSION: MILD DEGENERATIVE CHANGES. NO ACUTE OSSEOUS INJURY TO THE CERVICAL SPINE.
[2017-06-01 16:13] LABS: Troponin I 0.05 ng/mL (<0.04)
[2017-06-01 16:22] LABS: Albumin 4.4 g/dL (3.2-5.2); BUN/Creatinine Ratio 8.5 (8-20); EGFR African American 123.7 (>60); EGFR Non-African American 96.2 (>60); Globulin 3.6 g/dL (2-4); Potassium 3.8 mmol/L (3.5-5.0); Total Bilirubin 0.4 mg/dL (0.2-1.0)
[2017-06-01] MEDS ORDERED: NS 0.9% 1000 ML* 1,000 ML IV ONE (17:40)
[2017-06-01] MEDS ORDERED: Tetan/Diph/Pertus SYR(Tdap)* 0.5 ML SYR(BOOSTRIX) use SYR IM ONE (18:24)
[2017-06-01] MEDS ORDERED: NS 0.9% 1000 ML* 1,000 ML IV SCH (18:45)
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
[2017-06-01] MEDS: LORazepam TAB(*) 1 MG PO SCH ×2 (20:20→22:17)
[2017-06-01] MEDS: Acetaminophen TAB* 325 MG PO PRN (22:20)
[2017-06-02] MEDS: LORazepam TAB(*) 1 MG PO SCH ×8 (03:51→23:36)
--- NOTE | 2017-06-02 05:28 | HP ---
HISTORY AND PHYSICAL: DATE OF ADMISSION: 06/01/17 PRIMARY CARE PROVIDER: None. ATTENDING PHYSICIAN: Aileen Starkey MD * (dictated by Helen Erickson NP) CHIEF COMPLAINT: Fall. HISTORY OF PRESENT ILLNESS: Mr. Vuong is a 57-year-old male with past medical history significant for alcoholism and duodenal ulcer who presented to the emergency room today via EMS after being found intoxicated on a sidewalk. According to the patient, he was walking to work when he tripped on the sidewalk and fell hitting his head. The patient reports that he had loss of consciousness for approximately a minute. The patient denied any lightheadedness or dizziness prior. He denies passing out. He states that he last had a few beers yesterday of regular size. The patient states that he has not had anything to drink today and last drink was yesterday. The patient is noted to have a laceration above his right eyebrow and several abrasions. He was brought by EMS to the emergency room for further evaluation of his symptoms. While in the emergency room, the patient had labs significant for an alcohol level of 424, troponin 0.05. He had urinalysis that was negative. A chest x- ray showing no acute cardiopulmonary disease. The patient had a head CT showing no acute intracranial pathology. He had a CT of his cervical spine showing mild degenerative changes and no acute osseous injury to the cervical spine. The patient had sutures placed above his right eyebrow. Hospitalists were asked to evaluate the patient for admission. The patient denies any fever, chills, chest pain, shortness of breath, nausea, vomiting, numbness, tingling, weakness, or visual complaints. The patient does report some minimal dizziness since falling. The patient does report some neck pain, but is moving his head and neck around freely without any difficulty. PAST MEDICAL HISTORY: 1. Alcoholism. 2. Duodenal ulcer. PAST SURGICAL HISTORY: None. HOME MEDICATIONS: Include none. ALLERGIES: No known drug allergies. FAMILY HISTORY: The patient's father had a history of coronary artery disease. The patient's mother had a cerebrovascular accident at age 62. He denies any family history of diabetes mellitus or cancer. The patient denies tobacco or recreational drug use. He reports drinking a few beers a couple of times a week at dinner. He is employed and lives alone. The patient's brother, Dillon Vuong, will be his surrogate decision maker in the event he is unable to make decisions for himself. REVIEW OF SYSTEMS: I performed a 14-point review of systems. All the pertinent positives and negatives are mentioned in the history of present illness. The remaining review of systems is negative. PHYSICAL EXAMINATION GENERAL APPEARANCE: The patient is alert, pleasant, appears to be in no acute distress. VITAL SIGNS: Temperature 99.8, heart rate 98, respiratory rate 17, O2 sat 95% on room air, blood pressure 135/86. HEENT: Normocephalic, atraumatic. Pupils are equal and reactive to light. Extraocular movements are intact. RESPIRATORY: There is no accessory muscle use. Lungs are clear to auscultation bilaterally. CARDIOVASCULAR: Regular rate and rhythm. S1 and S2 present. There are no murmurs, rubs, or gallops heard. ABDOMEN: Soft, nontender, and nondistended. There are bowel sounds present x4. EXTREMITIES: No lower extremity edema. DP and PT pulses are 2+ and symmetric. MUSCULOSKELETAL: There is no clubbing or cyanosis noted. NEUROLOGICAL: The patient is alert and oriented x4. Cranial nerves II through XII are grossly intact. The patient has equal hand general house worker. He has full range of motion of his neck. PSYCHOLOGICAL: The patient is calm and cooperative. SKIN: There is a laceration above his right eyebrow that has a dressing intact. He also has small abrasions on his left forearm and both knees. DIAGNOSTIC STUDIES/LABORATORY DATA: Sodium 141, potassium 3.8, chloride 106, CO2 23, BUN 7, creatinine 0.82, and glucose 95. Lactic acid 2.3, troponin 0.05. Alcohol level 424. White blood cell count 5.0, hemoglobin 11.6, hematocrit 41, and platelet count 283. Urinalysis negative. Drug tox negative with the exception of alcohol. Chest x-ray from today. Radiologist's impression: No active cardiopulmonary disease. Head CT from today. Radiologist's impression: No acute intracranial pathology. Cervical spine CT from today. Radiologist's impression: Mild degenerative changes. No acute osseous injury to the cervical spine. IMPRESSION: Mr. Vuong is a 57-year-old male with past medical history significant for alcoholism and duodenal ulcer who presents to the emergency room intoxicated. He will be admitted as an observation for alcohol withdrawal and evaluation for possible syncopal episode. ASSESSMENT AND PLAN: 1. Possible syncopal episode. The patient reports just tripping and losing consciousness due to his intoxication, unclear exactly the events of his fall. So, we will monitor him on telemetry and trend his troponins. 2. Elevated troponin. The patient's troponin is 0.05. He denies chest pain. This appears to be the patient's baseline troponin. We will trend his troponins until peak. 3. Alcohol withdrawal. We will place the patient on a small dose of standing Ativan to assist with his detox in addition to the [place] protocol. The patient is receiving a banana bag in the emergency room, and he will be placed on thiamine, a multivitamin, and folic acid. We asked for social work consult. The patient is not interested in inpatient alcohol treatment at discharge. 4. Fluids, electrolytes, and nutrition. The patient will be on a regular diet. 5. Code status. Full code. 6. DVT prophylaxis. The patient is a low risk and will be encouraged to ambulate. If he becomes unable to ambulate, we will place SCDs on him. 7. Disposition: Inpatient for alcohol withdrawal. TIME SPENT: Time for this admission was approximately 45 minutes, greater than half of that was spent with the patient discussing medications, past medical history, and events leading up to his arrival today and performing a physical examination. The case has been reviewed with the attending, Dr. Starkey, who agrees with the plan of care. Reviewed by SHERI FINN 06/05/17 1715 [id number] #: [id number] KEVIN
[2017-06-02] MEDS: Aspirin EC Low Dose* 81 MG TAB.EC PO SCH (09:00)
[2017-06-02] MEDS ORDERED: Ondansetron INJ* 2 MG/ML VIAL IV PRN (09:02)
[2017-06-02] MEDS: Acetaminophen TAB* 325 MG PO PRN ×3 (09:02→17:19)
--- NOTE | 2017-06-02 11:08 | PN ---
Subjective Date of Service: 06/02/17 Interval History: Pt c/o nausea and headache Objective Active Medications: Acetaminophen (Tylenol Tab*) 650 mg PO Q4H PRN PRN Reason: PAIN Last Admin: 06/02/17 09:02 Dose: 650 mg Aspirin (Aspirin Ec Low Dose*) 81 mg PO DAILY [facility] Last Admin: 06/02/17 09:00 Dose: 81 mg Folic Acid (Folvite Tab*) 1 mg PO DAILY [facility] Potassium Chloride 20 meq/ (Lactated Ringer's) 1,010 mls @ 126.25 mls/hr IVPB Q8H [facility] Lorazepam (Ativan Tab(*)) 0 - 6 mg PO .PER [facility] PROTOCOL ABHIJIT PRN Reason: Protocol Last Admin: 06/02/17 09:00 Dose: 2 mg Lorazepam (Ativan Tab(*)) 1 mg PO Q8H ABHIJIT Last Admin: 06/02/17 03:51 Dose: 1 mg Multivitamins/Minerals (Theragran/Minerals Tab*) 1 tab PO DAILY [facility] Omeprazole (Prilosec Cap*) 20 mg PO BID [facility] Ondansetron HCl (Zofran Inj*) 4 mg IV Q6H PRN PRN Reason: NAUSEA Last Admin: 06/02/17 10:00 Dose: 4 mg Thiamine HCl (Vitamin B-1 Tab*) 100 mg PO DAILY [facility] Vital Signs 06/01/17 06/01/17 06/01/17 18:25 18:30 18:56 Temperature Pulse Rate 97 98 94 Respiratory Rate Blood Pressure 137/92 (mmHg) O2 Sat by Pulse 97 95 96 Oximetry 06/01/17 06/01/17 06/01/17 19:00 19:45 19:54 Temperature 99.1 F Pulse Rate 101 Respiratory 10 17 Rate Blood Pressure 136/87 155/104 (mmHg) O2 Sat by Pulse 99 Oximetry 06/01/17 06/01/17 06/01/17 20:00 20:10 20:20 Temperature Pulse Rate Respiratory 19 17 25 Rate Blood Pressure (mmHg) O2 Sat by Pulse Oximetry 06/01/17 06/01/17 06/01/17 20:30 20:40 20:50 Temperature Pulse Rate Respiratory 16 17 21 Rate Blood Pressure (mmHg) O2 Sat by Pulse Oximetry 06/01/17 06/01/17 06/01/17 21:00 21:10 21:20 Temperature Pulse Rate Respiratory 14 24 20 Rate Blood Pressure (mmHg) O2 Sat by Pulse Oximetry 06/01/17 06/01/17 06/01/17 21:30 21:40 21:50 Temperature Pulse Rate Respiratory 22 21 18 Rate Blood Pressure (mmHg) O2 Sat by Pulse Oximetry 06/01/17 06/01/17 06/01/17 22:00 22:10 22:11 Temperature 98.7 F Pulse Rate 103 Respiratory 19 21 20 Rate Blood Pressure 142/83 (mmHg) O2 Sat by Pulse 98 Oximetry 06/01/17 06/01/17 06/01/17 22:17 22:20 22:30 Temperature Pulse Rate Respiratory 19 18 23 Rate Blood Pressure (mmHg) O2 Sat by Pulse Oximetry 06/01/17 06/01/17 06/01/17 22:40 22:50 23:00 Temperature Pulse Rate Respiratory 20 22 24 Rate Blood Pressure (mmHg) O2 Sat by Pulse Oximetry 06/01/17 06/01/17 06/01/17 23:10 23:20 23:30 Temperature Pulse Rate Respiratory 9 33 18 Rate Blood Pressure (mmHg) O2 Sat by Pulse Oximetry 06/01/17 06/01/17 06/02/17 23:40 23:50 00:00 Temperature Pulse Rate Respiratory 24 24 21 Rate Blood Pressure (mmHg) O2 Sat by Pulse Oximetry 06/02/17 06/02/17 06/02/17 00:03 00:10 00:17 Temperature 98.5 F Pulse Rate 108 Respiratory 24 14 18 Rate Blood Pressure 138/77 (mmHg) O2 Sat by Pulse 97 Oximetry 06/02/17 06/02/17 06/02/17 00:20 00:30 00:40 Temperature Pulse Rate Respiratory 13 5 0 Rate Blood Pressure (mmHg) O2 Sat by Pulse Oximetry 06/02/17 06/02/17 06/02/17 00:50 01:00 01:10 Temperature Pulse Rate Respiratory 0 0 0 Rate Blood Pressure (mmHg) O2 Sat by Pulse Oximetry 06/02/17 06/02/17 06/02/17 01:20 01:30 01:40 Temperature Pulse Rate Respiratory 2 0 0 Rate Blood Pressure (mmHg) O2 Sat by Pulse Oximetry 06/02/17 06/02/17 06/02/17 01:50 02:00 02:01 Temperature 98.2 F Pulse Rate 105 Respiratory 7 19 22 Rate Blood Pressure 139/88 (mmHg) O2 Sat by Pulse 96 Oximetry 06/02/17 06/02/17 06/02/17 02:10 02:20 02:30 Temperature Pulse Rate Respiratory 21 22 22 Rate Blood Pressure (mmHg) O2 Sat by Pulse Oximetry 06/02/17 06/02/17 06/02/17 02:40 02:50 03:00 Temperature Pulse Rate Respiratory 18 20 20 Rate Blood Pressure (mmHg) O2 Sat by Pulse Oximetry 06/02/17 06/02/17 06/02/17 03:10 03:20 03:30 Temperature Pulse Rate Respiratory 15 17 19 Rate Blood Pressure (mmHg) O2 Sat by Pulse Oximetry 06/02/17 06/02/17 06/02/17 03:40 03:50 03:51 Temperature Pulse Rate Respiratory 15 19 18 Rate Blood Pressure (mmHg) O2 Sat by Pulse Oximetry 06/02/17 06/02/17 06/02/17 04:00 04:10 04:15 Temperature 98.3 F Pulse Rate 103 Respiratory 17 12 20 Rate Blood Pressure 155/91 (mmHg) O2 Sat by Pulse 99 Oximetry 06/02/17 06/02/17 06/02/17 04:20 04:30 04:40 Temperature Pulse Rate Respiratory 6 2 18 Rate Blood Pressure (mmHg) O2 Sat by Pulse Oximetry 06/02/17 06/02/17 06/02/17 04:50 05:00 05:10 Temperature Pulse Rate Respiratory 3 2 8 Rate Blood Pressure (mmHg) O2 Sat by Pulse Oximetry 06/02/17 06/02/17 06/02/17 05:20 05:30 05:40 Temperature Pulse Rate Respiratory 21 21 5 Rate Blood Pressure (mmHg) O2 Sat by Pulse Oximetry 06/02/17 06/02/17 06/02/17 05:50 06:00 06:04 Temperature 98.5 F Pulse Rate 108 Respiratory 1 2 20 Rate Blood Pressure 154/95 (mmHg) O2 Sat by Pulse 98 Oximetry 06/02/17 06/02/17 06/02/17 06:10 06:20 06:30 Temperature Pulse Rate Respiratory 13 20 1 Rate Blood Pressure (mmHg) O2 Sat by Pulse Oximetry 06/02/17 06/02/17 06/02/17 06:40 06:50 07:00 Temperature Pulse Rate Respiratory 11 4 9 Rate Blood Pressure (mmHg) O2 Sat by Pulse Oximetry 06/02/17 06/02/17 06/02/17 07:10 07:20 07:30 Temperature Pulse Rate Respiratory 2 0 16 Rate Blood Pressure (mmHg) O2 Sat by Pulse Oximetry 06/02/17 06/02/17 06/02/17 07:40 07:50 08:00 Temperature Pulse Rate Respiratory 18 20 18 Rate Blood Pressure (mmHg) O2 Sat by Pulse Oximetry 06/02/17 06/02/17 06/02/17 08:10 08:20 08:30 Temperature Pulse Rate Respiratory 7 11 16 Rate Blood Pressure (mmHg) O2 Sat by Pulse Oximetry 06/02/17 06/02/17 06/02/17 08:40 08:50 09:00 Temperature Pulse Rate Respiratory 20 18 26 Rate Blood Pressure (mmHg) O2 Sat by Pulse Oximetry 06/02/17 10:57 Temperature Pulse Rate Respiratory Rate Blood Pressure 189/90 (mmHg) O2 Sat by Pulse Oximetry Oxygen Devices in Use Now: None Appearance: 57 yo M in NAD, aAOx3 Eyes: No Scleral Icterus, PERRLA Ears/Nose/Mouth/Throat: NL Teeth, Lips, Gums, Mucous Membranes Moist Neck: NL Appearance and Movements; NL JVP Respiratory: Symmetrical Chest Expansion and Respiratory Effort, Clear to Auscultation Cardiovascular: NL Sounds; No Murmurs; No JVD, RRR Abdominal: NL Sounds; No Tenderness; No Distention Lymphatic: No Cervical Adenopathy Extremities: No Edema, No Clubbing, Cyanosis Skin: - - sutured 2 cm laceration on R eyebrow, contusion on left synagogue, abrasions b/l knees Neurological: Alert and Oriented x 3, NL Muscle Strength and Tone, - - mild tremors noted, unsteady gait, OK with walker Result Diagrams: 06/01/17 15:42 06/01/17 15:42 Additional Lab and Data: Lab Results 06/01/17 06/01/17 06/01/17 Range/Units 15:15 15:15 15:42 WBC 5.0 (3.5-10.8) 10^3/ul RBC 4.09 (4.0-5.4) 10^6/ul Hgb 13.6 L (14.0-18.0) g/dl Hct 41 L (42-52) % MCV 101 H (80-94) fL MCH 33 H (27-31) pg MCHC 33 (31-36) g/dl RDW 16 H (10.5-15) % Plt Count 283 (150-450) 10^3/ul MPV 8 (7.4-10.4) um3 Neut % (Auto) 74.6 (38-83) % Lymph % (Auto) 17.7 L (25-47) % Dane % (Auto) 6.4 (1-9) % Eos % (Auto) 0.1 (0-6) % Baso % (Auto) 1.2 (0-2) % Absolute Neuts (auto) 3.7 (1.5-7.7) 10^3/ul Absolute Lymphs (auto) 0.9 L (1.0-4.8) 10^3/ul Absolute Monos (auto) 0.3 (0-0.8) 10^3/ul Absolute Eos (auto) 0 (0-0.6) 10^3/ul Absolute Basos (auto) 0.1 (0-0.2) 10^3/ul Absolute Nucleated RBC 0 10^3/ul Nucleated RBC % 0.1 Sodium (133-145) mmol/L Potassium (3.5-5.0) mmol/L Chloride (101-111) mmol/L Carbon Dioxide (22-32) mmol/L Anion Gap (2-11) mmol/L BUN (6-24) mg/dL Creatinine (0.67-1.17) mg/dL Est GFR ( Amer) (>60) Est GFR (Non-Af Amer) (>60) BUN/Creatinine Ratio (8-20) Glucose (70-100) mg/dL Lactic Acid (0.5-2.0) mmol/L Calcium (8.6-10.3) mg/dL Magnesium (1.9-2.7) mg/dL Total Bilirubin (0.2-1.0) mg/dL AST (13-39) U/L ALT (7-52) U/L Alkaline Phosphatase (34-104) U/L Troponin I (<0.04) ng/mL B-Natriuretic Peptide ( - 100) pg/mL Total Protein (6.4-8.9) g/dL Albumin (3.2-5.2) g/dL Globulin (2-4) g/dL Albumin/Globulin Ratio (1-3) Urine Color Straw Urine Appearance Clear Urine pH 6.0 (5-9) Ur Specific Milo 1.003 L (1.010-1.030) Urine Protein Negative (Negative) Urine Ketones Negative (Negative) Urine Blood Negative (Negative) Urine Nitrate Negative (Negative) Urine Bilirubin Negative (Negative) Urine Urobilinogen Negative (Negative) Ur Leukocyte Esterase Negative (Negative) Urine Glucose Negative (Negative) Urine Opiates Screen None detected (None Detect) Ur Barbiturates Screen None detected (None Detect) Ur Phencyclidine Scrn None detected (None Detect) Ur Amphetamines Screen None detected (None Detect) U Benzodiazepines Scrn None detected (None Detect) Urine Cocaine Screen None detected (None Detect) U Cannabinoids Screen None detected (None Detect) Serum Alcohol (<10) mg/dL 06/01/17 06/01/17 06/01/17 Range/Units 15:42 15:42 15:42 WBC (3.5-10.8) 10^3/ul RBC (4.0-5.4) 10^6/ul Hgb (14.0-18.0) g/dl Hct (42-52) % MCV (80-94) fL MCH (27-31) pg MCHC (31-36) g/dl RDW (10.5-15) % Plt Count (150-450) 10^3/ul MPV (7.4-10.4) um3 Neut % (Auto) (38-83) % Lymph % (Auto) (25-47) % Dane % (Auto) (1-9) % Eos % (Auto) (0-6) % Baso % (Auto) (0-2) % Absolute Neuts (auto) (1.5-7.7) 10^3/ul Absolute Lymphs (auto) (1.0-4.8) 10^3/ul Absolute Monos (auto) (0-0.8) 10^3/ul Absolute Eos (auto) (0-0.6) 10^3/ul Absolute Basos (auto) (0-0.2) 10^3/ul Absolute Nucleated RBC 10^3/ul Nucleated RBC % Sodium 141 (133-145) mmol/L Potassium 3.8 (3.5-5.0) mmol/L Chloride 106 (101-111) mmol/L Carbon Dioxide 23 (22-32) mmol/L Anion Gap 12 H (2-11) mmol/L BUN 7 (6-24) mg/dL Creatinine 0.82 (0.67-1.17) mg/dL Est GFR ( Amer) 123.7 (>60) Est GFR (Non-Af Amer) 96.2 (>60) BUN/Creatinine Ratio 8.5 (8-20) Glucose 95 (70-100) mg/dL Lactic Acid 2.3 H* (0.5-2.0) mmol/L Calcium 9.0 (8.6-10.3) mg/dL Magnesium 2.0 (1.9-2.7) mg/dL Total Bilirubin 0.40 (0.2-1.0) mg/dL AST 35 (13-39) U/L ALT 21 (7-52) U/L Alkaline Phosphatase 64 (34-104) U/L Troponin I 0.05 H* (<0.04) ng/mL B-Natriuretic Peptide 24 ( - 100) pg/mL Total Protein 8.0 (6.4-8.9) g/dL Albumin 4.4 (3.2-5.2) g/dL Globulin 3.6 (2-4) g/dL Albumin/Globulin Ratio 1.2 (1-3) Urine Color Urine Appearance Urine pH (5-9) Ur Specific Milo (1.010-1.030) Urine Protein (Negative) Urine Ketones (Negative) Urine Blood (Negative) Urine Nitrate (Negative) Urine Bilirubin (Negative) Urine Urobilinogen (Negative) Ur Leukocyte Esterase (Negative) Urine Glucose (Negative) Urine Opiates Screen (None Detect) Ur Barbiturates Screen (None Detect) Ur Phencyclidine Scrn (None Detect) Ur Amphetamines Screen (None Detect) U Benzodiazepines Scrn (None Detect) Urine Cocaine Screen (None Detect) U Cannabinoids Screen (None Detect) Serum Alcohol 424 H* (<10) mg/dL Assess/Plan/Problems-Billing Assessment: 57 yo M with h/o alcoholic presented after a fall and hitting head with ETOH level>440. Pt stated that he was just walking to his truck to drive to [place] when he fell. He doesn't remember how much and what he drunk. - Patient Problems (1) Alcohol withdrawal Comment: Symptoms overall seem to be stable cont WAM cont scheduled Ativan Cont IVF Continue thiamine, folate, MVM. (2) Erosive esophagitis Comment: Continue PPI (3) DVT prophylaxis Comment: HSQ Status and Disposition: inpatient
[2017-06-02] MEDS: Heparin VIAL(*) 5000 UNITS/ML VIAL (FIVE THOUSAND) SUBCUT SCH ×2 (13:48→20:49)
[2017-06-02] MEDS: Thiamine TAB* 100 MG TAB PO SCH (13:49)
[2017-06-02] MEDS: Folic Acid TAB* 1 MG PO SCH (13:49)
[2017-06-02] MEDS: Multivitamins/Minerals TAB PO SCH (13:49)
[2017-06-02] MEDS: Omeprazole CAP* 20 MG PO SCH (20:27)
[2017-06-03] MEDS: Heparin VIAL(*) 5000 UNITS/ML VIAL (FIVE THOUSAND) SUBCUT SCH (05:04)
[2017-06-03 05:39] LABS: BUN/Creatinine Ratio 9.5 (8-20); Calcium 9.4 mg/dL (8.6-10.3); EGFR African American 167.6 (>60); EGFR Non-African American 130.4 (>60); Magnesium 1.6 mg/dL (1.9-2.7); Potassium 3.9 mmol/L (3.5-5.0)
[2017-06-03 05:53] LABS: Hematocrit 37 % (42-52); Hemoglobin 12.1 g/dl (14.0-18.0); Mean Corpuscular HGB Conc 33 g/dl (31-36); Mean Corpuscular Hemoglobin 33 pg (27-31); Mean Corpuscular Volume 101 fL (80-94); Mean Platelet Volume 9 um3 (7.4-10.4); Red Blood Count 3.65 10^6/ul (4.0-5.4); Red Cell Distribution Width 17 % (10.5-15); White Blood Count 5.3 10^3/ul (3.5-10.8)
[2017-06-03] MEDS: LORazepam TAB(*) 1 MG PO SCH ×2 (07:37→10:30)
[2017-06-03 10:01] VITALS: BP 151/98
[2017-06-03] MEDS: Omeprazole CAP* 20 MG PO SCH (10:29)
[2017-06-03] MEDS: Thiamine TAB* 100 MG TAB PO SCH (10:29)
[2017-06-03] MEDS: Aspirin EC Low Dose* 81 MG TAB.EC PO SCH (10:29)
[2017-06-03] MEDS: Folic Acid TAB* 1 MG PO SCH (10:29)
[2017-06-03] MEDS: Multivitamins/Minerals TAB PO SCH (10:29)
--- NOTE | 2017-06-04 08:35 | DS ---
CC: Dr. Han Reid * DISCHARGE SUMMARY: DATE OF ADMISSION: 06/01/17 DATE OF DISCHARGE: 06/03/17 PRIMARY CARE PROVIDER: Dr. Han Reid, phone number [phone], in [place], [place]. DISCHARGE DIAGNOSES: 1. Alcohol withdrawal. 2. Alcoholism. 3. Status post fall. 4. Alcohol intoxication on admission. SECONDARY DIAGNOSES: 1. Alcoholism. 2. Erosive esophagitis. MEDICATION LIST: 1. Folic acid 1 mg p.o. daily. 2. Lorazepam taper as follows: 2 tablets p.o. q.12 hours for one day, 1 tablet p.o. q.12 hours for 1 day, 1 tablet p.o. daily for 1 day, then stop. 3. Multivitamin 1 tablet p.o. daily. 4. Omeprazole 20 mg p.o. daily. 5. Thiamine 100 mg p.o. daily. HOSPITAL COURSE: Mr. Vuong is a 57-year-old male with a past medical history as stated above that was brought in by EMS for intoxication. As per ER report, the patient had fallen unto the sidewalk and struck the right side of his face. There was no report of loss of consciousness and the patient had slightly slurred speech and stated he had two large beers. In the emergency room, there was concern for possible syncopal episode. 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 He denies passing out. In the emergency room, he was found to have an alcohol level of 424. He was admitted for further evaluation. He had no significant arrhythmias on telemetry and he did well on a WA protocol. This morning, he is alert, awake, oriented x3, and wishes to be discharged. He has minimal tremors, does not appear to be confused anymore and has no other complaints. When asked about his alcohol intake use, the patient states he was able to quit for 10 years with AA and he is planning to do it again. He states that he drinks 3 to 4 beers with dinner, 2 to 3 times a week, but I suspect his intake is much higher than that. He was seen in the emergency room on May 23 and at that time he had an alcohol level of 170. The patient has no other complaints at this time. He is not interested in inpatient or outpatient rehab. He states that he is in the middle of moving to a new job in [place] and for now he is still seeing Dr. Reid, but he will establish new primary care after he moves. The patient had a minimally elevated troponin at 0.05 and this appears to be a chronic finding for him as he has had borderline troponins in all his visits. He has no complaints of chest pain or dyspnea at this time, but his primary care provider may elect to pursue a cardiac workup as outpatient. The patient was advised not to drive today as he received Ativan earlier, and although he appears to be alert, awake, and oriented x3, I believe he should wait at least until tomorrow. 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 He was also advised that he should quit drinking, but in case he drinks, he should not be driving as he was planning to do on the day of admission. The patient verbalized understanding of the recommendations. As part of his workup, the patient had a CT of the brain without contrast that showed no acute intracranial pathology. CT of the cervical spine does show mild degenerative changes, with no acute osseous injury to the cervical spine. Chest x- ray with no evidence of acute cardiopulmonary disease. The patient is medically stable for discharge at this time. PHYSICAL EXAMINATION: Vital Signs: Temperature 98.2, heart rate is 92, respiratory rate 16, oxygen saturation 100% on room air, blood pressure is 151/ 98. General: The patient is a middle-aged male, lying in bed, in no acute distress. CVS: Normal S1 and S2. Regular rate and rhythm. Chest: Breath sounds present bilaterally, with no added sounds. Abdomen: Soft. Bowel sounds are present. Extremities: No edema. Neuro: He is alert, awake and oriented x3, able to move all 4 extremities. The patient ambulated around the unit with a steady gait. DIET: Regular diet. ACTIVITY: As tolerated. DISPOSITION: To home. STATUS WHILE IN THE HOSPITAL: Inpatient. Please keep in mind that this is a summarized version of this patient's hospital stay. If you need more information, please feel free to call me at [phone] or please obtain the full medical records. TIME SPENT: Approximately 45 minutes were spent to complete this discharge. [id number] #: [id number] [facility]
== END 2017-06-03 11:00 | disposition home or self-care (01) | DRG 897 ==
LOC: ED 14:05 → MEDTELE 18:03
PROVIDERS: ADMIT Internal Medicine; ATTEND Internal Medicine
PROC: 0HQ1XZZ Repair Face Skin, External Approach (ICD-10-PCS; principal; 2017-06-01)
DX: F10.229 Alcohol dependence with intoxication, unspecified (principal); F10.239 Alcohol dependence with withdrawal, unspecified; K22.10 Ulcer of esophagus without bleeding; W01.198A Fall on same level from slipping, tripping and stumbling with subsequent striking against other object, initial encounter; Y90.8 Blood alcohol level of 240 mg/100 ml or more; S01.111A Laceration without foreign body of right eyelid and periocular area, initial encounter; M47.9 Spondylosis, unspecified; R74.8 Abnormal levels of other serum enzymes; S50.812A Abrasion of left forearm, initial encounter; S80.212A Abrasion, left knee, initial encounter; S80.211A Abrasion, right knee, initial encounter; J44.9 Chronic obstructive pulmonary disease, unspecified; K21.9 Gastro-esophageal reflux disease without esophagitis; R40.2412 Glasgow coma scale score 13-15, at arrival to emergency department; F41.9 Anxiety disorder, unspecified; Y92.480 Sidewalk as the place of occurrence of the external cause; Z82.49 Family history of ischemic heart disease and other diseases of the circulatory system; Z82.3 Family history of stroke; I25.2 Old myocardial infarction
CPT/HCPCS: 36415; 70450; 71020; 72125; 80048; 80053; 80307; 80320; 81003; 83605; 83735; 83880; 84484; 85025; 90715; A9270-GY; G0480; J1644; J2405; J3480

== ENCOUNTER 2017-06-26 21:50 | Inpatient (IN) | payer MEDICAID ==
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
[2017-06-27] MEDS ORDERED: Ibuprofen TAB* 600 MG PO ONE (11:49)
[2017-06-27] MEDS ORDERED: LORazepam INJ* 2 MG/ML 1 ML VIAL IM ONE (14:42)
[2017-06-27 15:35] LABS: Urine Bacteria Absent (Absent); Urine Bilirubin Negative (Negative); Urine Glucose Negative (Negative); Urine Nitrite Negative (Negative)
[2017-06-27 15:39] LABS: Hematocrit 40 % (42-52); Hemoglobin 13.4 g/dl (14.0-18.0); Mean Corpuscular HGB Conc 33 g/dl (31-36); Mean Corpuscular Hemoglobin 32 pg (27-31); Mean Corpuscular Volume 97 fL (80-94); Mean Platelet Volume 8 um3 (7.4-10.4); Red Blood Count 4.17 10^6/ul (4.0-5.4); Red Cell Distribution Width 17 % (10.5-15); White Blood Count 8.6 10^3/ul (3.5-10.8)
[2017-06-27 15:45] LABS: Add Diff/Slide Review? Slide Review Added; Comments Flag Yes
[2017-06-27 15:57] LABS: ALT 54 U/L (7-52); AST 112 U/L (13-39); Albumin 4.7 g/dL (3.2-5.2); Alkaline Phosphatase 82 U/L (34-104); Anion Gap 13 mmol/L (2-11); BUN/Creatinine Ratio 11.6 (8-20); Blood Urea Nitrogen 8 mg/dL (6-24); CO2 Carbon Dioxide 23 mmol/L (22-32); Calcium 9.1 mg/dL (8.6-10.3); Chloride 103 mmol/L (101-111); EGFR African American 150.9 (>60); EGFR Non-African American 117.4 (>60); Globulin 3.4 g/dL (2-4); Glucose 146 mg/dL (70-100); Potassium 3.9 mmol/L (3.5-5.0); Sodium 139 mmol/L (133-145); Total Protein 8.1 g/dL (6.4-8.9)
[2017-06-27 16:02] LABS: Benzodiazepine Urine Screen None Detected (None Detect)
[2017-06-27 16:25] LABS: Acetaminophen < 15 mcg/mL; Alcohol 113 mg/dL (<10); Salicylate < 2.50 mg/dL (<30)
[2017-06-27 16:30] LABS: TSH (Thyroid Stimulating Horm) 0.33 mcIU/mL (0.34-5.60)
[2017-06-27] MEDS ORDERED: LORazepam INJ* 2 MG/ML 1 ML VIAL IV PUSH ONE (17:31)
[2017-06-27] MEDS ORDERED: Nitroglycerin TAB 0.4 MG* 0.4 MG TAB SL ONE (17:47)
[2017-06-27] MEDS ORDERED: Aspirin TAB* 325 MG PO ONE (17:47)
[2017-06-27] MEDS ORDERED: Thiamine IV* 100 MG/ML 2 ML VIAL IM ONE (17:56)
[2017-06-27] MEDS ORDERED: NS 0.9% 1000 ML* 1,000 ML IV SCH (18:00)
[2017-06-27 18:02] LABS: Troponin I 0.06 ng/mL (<0.04)
[2017-06-27] MEDS: NS 0.9% 1000 ML* 1,000 ML IV SCH ×2 (18:08→20:43)
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
--- NOTE | 2017-06-27 19:12 | RAD ---
INDICATION: Chest pain. COMPARISON: Comparison is made with a prior study from June 01, 2017. TECHNIQUE: A portable view of the chest was obtained. FINDINGS: The heart appears mildly enlarged. The lungs are underinflated and clear. No pleural effusion is seen. IMPRESSION: NO EVIDENCE FOR ACUTE DISEASE.
[2017-06-27] MEDS: LORazepam TAB(*) 0.5 MG PO SCH (20:32)
[2017-06-27] MEDS: LORazepam TAB(*) 1 MG PO SCH ×2 (20:33→22:55)
[2017-06-27] MEDS: Acetaminophen TAB* 325 MG PO PRN (20:34)
[2017-06-27] MEDS: Omeprazole CAP* 20 MG PO SCH (20:34)
[2017-06-28] MEDS: LORazepam TAB(*) 1 MG PO SCH ×3 (00:40→12:13)
--- NOTE | 2017-06-28 01:04 | HP ---
HISTORY AND PHYSICAL: DATE OF ADMISSION: 06/27/17 PRIMARY CARE PROVIDER: None. CHIEF COMPLAINT: Status post fall. HISTORY OF PRESENT ILLNESS: Clint Vuong is a 57-year-old male with history of alcoholism, known to us from multiple previous hospitalizations on basically a monthly basis ever since he moved to [facility] from [place] in January, who was last discharged from our facility on 06/03/17 and was planning to move to [place]. The patient stated that on the way to [place], his car broke down, and he went to live with his brother for a week in [place]. He stated that in [place], he was not drinking alcohol for a week, but then he came back to [place] to fix his car. He stated that he drank "a few beers." He went to [place] to exercise; and, on the way out of [place], he collapsed, suffering an abrasion to his face. Apparently, he was combative at the mall and the police was called. Subsequently, he was brought to the ED for evaluation. Here his alcohol level was 488 on presentation. He spent 20 hours in the emergency department and after 20 hours of ED stay, he started withdrawing from alcohol on 06/27/17. He also complained of pleuritic chest pain since he fell on his chest also. The ED provider asked medicine service to admit the patient for alcohol withdrawal and chest pain. PAST MEDICAL HISTORY: 1. History of erosive esophagitis, GI bleed secondary to it in January 2017. 2. History of alcohol abuse. MEDICATIONS AT HOME: None; however, the patient was supposed to take thiamine, folate, and omeprazole. ALLERGIES: No known drug allergies. FAMILY HISTORY: The patient's mother with history of CVA, who at the age of 62. Father with history of cardiac issues and pacer, in his 70's, who is alive. SOCIAL HISTORY: The patient denies tobacco or drug use. He drinks "several beers a day" and has been doing so for 10 years. He is an general maintenance engineer and currently he is in the process of moving from a company based in [place] to [place]. He was trying to move to [place] in the past month, but it has not happened yet. Last time, he attempted to go to his truck at the end of May [address] to [place], and he collapsed in front of his car with alcohol level over 400. REVIEW OF SYSTEMS: Positive for pleuritic chest pain with point tenderness up in the anterior chest. Positive for tremors. All of the systems were reviewed with the patient and were otherwise negative. PHYSICAL EXAMINATION GENERAL: This is a very pleasant 57-year-old male who is in no acute distress. Alert, awake, oriented x3. VITAL SIGNS: Blood pressure of 143/91, heart rate of 121 and regular, respiratory rate 18, oxygen saturation 96% on room air, temperature 99.5. HEENT: Head with abrasion on the forehead and nose that is superficial and not bleeding. Eyes: Extraocular motions are intact. Pupils equal and reactive to light and accommodation. Oropharynx clear. Mucosa moist. NECK: Supple. No JVD, no bruits bilaterally. RESPIRATORY: Clear to auscultation bilaterally. On palpation of the chest, the patient has point tenderness overlying the sternal area. There was no abrasion noted. CARDIOVASCULAR: Regular rate and rhythm, no murmur. ABDOMEN: Soft, nontender. Bowel sounds present in all 4 quadrants. There is no hepatomegaly palpated. EXTREMITIES: There is no edema. Pulses are +2 bilaterally. No cyanosis. NEUROLOGIC: There are fine tremors in bilateral upper extremities due to mild withdrawal. Cranial nerves II through XII grossly intact. Motor strength is 5/ 5 bilaterally. SKIN: Upon evaluation of the skin, the patient does have abrasions on bilateral knees and nose and forehead as above mentioned. DIAGNOSTIC STUDIES/LAB DATA: Alcohol level last reported 113 on 06/27/17 at 3: 30 p.m. Sodium 139, potassium 3.9, chloride 103, carbon dioxide 23, BUN 8, creatinine 0.69. Liver function tests showed bilirubin of 0.6, AST of 112, ALT of 54, alkaline phosphatase of 82. Troponin of 0.06 consistent with prior. TSH of 0.33, albumin of 4.7. Last reported TSH on 05/23/17 was unremarkable at 0.55. The patient has had TSH obtained in March twice and in May twice and both of those times, his TSH was within normal limits. Urinalysis was grossly unremarkable apart from trace hyaline casts. Portable chest x-ray reviewed by myself showed normal cardiac silhouette and no evidence of pulmonary abnormalities. The official cardiology report is still pending at the time of dictation. The patient's EKG showed sinus tachycardia with heart rate of 110 beats per minute with left ventricular fascicular block and no significant ST changes, and was compared with his EKG from May 2017, it was unchanged. CT of maxillofacial region obtained today showed "no evidence of fracture." Brain CT also obtained today, impression, "no evidence of acute intracranial abnormalities." ASSESSMENT/PLAN: 1. A 57-year-old male with history of alcoholism with multiple prior hospitalizations presents once again intoxicated after a fall with alcohol level over 400. We will ask social work to see the patient in consultation. The patient is going to be observed on telemetry monitored bed. He is going to be rehydrated with intravenous fluids and placed on a scheduled dose of Ativan as well as WAM protocol. Thiamine and folate are also going to be provided. 2. In regards to patient's chest pain, the patient has had troponins between 0.05, 0.06 in the past 6 months. His transthoracic echocardiogram last reported in March 2017 showed minor regional variations of the left ventricle with global hypokinesis and EF of 50% to 55% and mild LVH. At this point, due to the patient having chronically elevated troponins, I will attempt to place patient through a stress test during this current hospital stay. It is possible though that depending on his withdrawal symptoms in the morning, he may not be a good candidate for it. For the time being, he is going to be placed on n.p.o. diet in the morning and pharmacological stress test. 3. In regards of history of the patient having erosive esophagitis with GI bleed in January 2017, the patient is going to be placed on omeprazole twice a day. 4. In regards to DVT prophylaxis, due to new thrombocytopenia, heparin is not going to be provided. The patient is also low risk. 5. Thrombocytopenia with platelet level of 77,000, most likely due to alcoholic liver disease . At the end of May, the patient's platelets were 223,000. TIME SPENT: Approximately 65 minutes was spent on admission of this patient, more than half that time was spent [id number] with the patient during the interview and physical exam. [id number]/[facility] #: [id number] KEVIN
[2017-06-28] MEDS: LORazepam TAB(*) 0.5 MG PO SCH ×2 (01:56→10:20)
[2017-06-28] MEDS: NS 0.9% 1000 ML* 1,000 ML IV SCH ×2 (03:32→16:24)
[2017-06-28 04:54] LABS: Hematocrit 35 % (42-52); Hemoglobin 11.3 g/dl (14.0-18.0); Mean Corpuscular HGB Conc 33 g/dl (31-36); Mean Corpuscular Hemoglobin 32 pg (27-31); Mean Corpuscular Volume 97 fL (80-94); Mean Platelet Volume 8 um3 (7.4-10.4); Red Blood Count 3.58 10^6/ul (4.0-5.4); Red Cell Distribution Width 17 % (10.5-15); White Blood Count 4.7 10^3/ul (3.5-10.8)
[2017-06-28 04:56] LABS: Comments Flag Yes
[2017-06-28 05:14] LABS: Magnesium 1.7 mg/dL (1.9-2.7)
[2017-06-28 05:20] LABS: Troponin I 0.07 ng/mL (<0.04)
[2017-06-28] MEDS: Acetaminophen TAB* 325 MG PO PRN ×4 (08:28→23:01)
[2017-06-28] MEDS ORDERED: Magnesium Sulfate 1 GM IV* 1 GM/100 ML BAG IV ONE (08:37)
[2017-06-28] MEDS ORDERED: D5NS 0.9% 1000 ML BAG* 1,000 ML IV SCH (12:00)
--- NOTE | 2017-06-28 12:18 | PN ---
Objective Active Medications: Acetaminophen (Tylenol Tab*) 650 mg PO Q4H PRN PRN Reason: PAIN Last Admin: 06/28/17 08:28 Dose: 650 mg Folic Acid (Folvite Tab*) 1 mg PO DAILY [facility] Dextrose/Sodium Chloride (D5ns 0.9% 1000 Ml Bag*) 1,000 mls @ 150 mls/hr IV PER RATE [facility] Last Admin: 06/28/17 12:02 Dose: 150 mls/hr Lorazepam (Ativan Tab(*)) 0.5 mg PO Q8H [facility] Last Admin: 06/28/17 10:20 Dose: 0.5 mg Lorazepam (Ativan Tab(*)) 0 - 6 mg PO .PER [facility] PROTOCOL [facility] PRN Reason: Protocol Last Admin: 06/28/17 12:13 Dose: 1 mg Multivitamins/Minerals (Theragran/Minerals Tab*) 1 tab PO DAILY [facility] Omeprazole (Prilosec Cap*) 20 mg PO BID [facility] Last Admin: 06/27/17 20:34 Dose: 20 mg Thiamine HCl (Vitamin B-1 Tab*) 100 mg PO DAILY [facility] Vital Signs 06/27/17 06/27/17 06/27/17 18:00 18:03 18:05 Temperature Pulse Rate 122 121 Respiratory 18 Rate Blood Pressure (mmHg) O2 Sat by Pulse 96 96 Oximetry 06/27/17 06/27/17 06/27/17 18:06 18:30 19:49 Temperature 98.5 F Pulse Rate 107 120 Respiratory 20 Rate Blood Pressure 143/91 126/105 161/97 (mmHg) O2 Sat by Pulse 95 99 Oximetry 06/27/17 06/27/17 06/27/17 20:32 20:33 22:32 Temperature Pulse Rate Respiratory 20 20 20 Rate Blood Pressure (mmHg) O2 Sat by Pulse Oximetry 06/27/17 06/27/17 06/27/17 22:33 22:55 23:29 Temperature 98.8 F Pulse Rate 106 Respiratory 20 20 18 Rate Blood Pressure 150/93 (mmHg) O2 Sat by Pulse 99 Oximetry 06/28/17 06/28/17 06/28/17 00:40 00:55 01:02 Temperature 98.6 F Pulse Rate 97 Respiratory 20 20 20 Rate Blood Pressure 147/89 (mmHg) O2 Sat by Pulse 100 Oximetry 06/28/17 06/28/17 06/28/17 01:56 02:40 03:04 Temperature 98.7 F Pulse Rate 86 Respiratory 20 20 20 Rate Blood Pressure 149/78 (mmHg) O2 Sat by Pulse 97 Oximetry 06/28/17 06/28/17 06/28/17 03:56 05:07 07:03 Temperature 98.7 F Pulse Rate 90 83 Respiratory 20 20 18 Rate Blood Pressure 147/93 147/90 (mmHg) O2 Sat by Pulse 99 98 Oximetry 06/28/17 06/28/17 06/28/17 07:09 09:37 10:20 Temperature 99.0 F Pulse Rate 95 Respiratory 18 16 Rate Blood Pressure 153/90 (mmHg) O2 Sat by Pulse 100 Oximetry 06/28/17 06/28/17 11:01 12:13 Temperature 98.9 F Pulse Rate 119 Respiratory 16 16 Rate Blood Pressure 152/100 (mmHg) O2 Sat by Pulse 98 Oximetry Result Diagrams: 06/28/17 04:27 06/27/17 15:30 Assess/Plan/Problems-Billing Assessment: 57 yo M with h/o alcoholic presented after a fall with ETOH level> 440. - Patient Problems (1) Alcohol withdrawal Comment: Symptoms overall seem to be stable cont WAM cont scheduled Ativan Cont IVF Continue thiamine, folate, MVM. (2) Chest pain Comment: Likely GI related Mildly elevated trop which is stable and without EKG changes cont PPI stress test will be performed today (3) Erosive esophagitis Comment: Continue PPI (4) DVT prophylaxis Comment: no anticoagulants due to thrombocytopenia (5) Thrombocytopenia Comment: - Likely due to alcohol abuse Status and Disposition: OBV
[2017-06-28] MEDS ORDERED: Aminophylline IV* 25 MG/ML 10 ML VIAL ONE (13:38)
[2017-06-28] MEDS ORDERED: Regadenoson* 0.4 MG/5 ML SYRINGE ONE (13:38)
--- NOTE | 2017-06-28 14:54 | RAD ---
Edited for charges. Indication: Chest pain. Myocardial perfusion scan was performed utilizing 1 day protocol. Rest myocardial perfusion was performed after intravenous injection of 10.2 mCi of technetium 99m tetrofosmin. Pharmacological stress was applied and 25.2 mCi of technetium 90 9M tetrofosmin was then injected for the stress portion of the study. There is homogeneous distribution of the radiotracer throughout the left ventricle. There is no evidence of any fixed or reversible perfusion defect identified. The ejection fraction at stress is 49%. Evaluation of wall motion demonstrates no focal wall motion abnormality. IMPRESSION: No fixed or reversible perfusion defect is noted. ASSESSMENT: Low risk Based on imaging criteria from ACC/AHA 2002 Guideline Update for the Management of Patients With Chronic Stable Angina Table 23. Noninvasive Risk Stratification. MTDD
[2017-06-28] MEDS: Omeprazole CAP* 20 MG PO SCH ×2 (15:03→20:32)
[2017-06-28] MEDS: Folic Acid TAB* 1 MG PO SCH (15:03)
[2017-06-28] MEDS: Thiamine TAB* 100 MG TAB PO SCH (15:03)
[2017-06-28] MEDS: Multivitamins/Minerals TAB PO SCH (15:03)
--- NOTE | 2017-06-28 15:46 | PN ---
Subjective Date of Service: 06/28/17 Interval History: Pt was seen again after stress test.still feels a little lightheaded when ambulating and HR goes up to 150 when walking Objective Active Medications: Acetaminophen (Tylenol Tab*) 650 mg PO Q4H PRN PRN Reason: PAIN Last Admin: 06/28/17 15:03 Dose: 650 mg Folic Acid (Folvite Tab*) 1 mg PO DAILY [facility] Last Admin: 06/28/17 15:03 Dose: 1 mg Lorazepam (Ativan Tab(*)) 0 - 6 mg PO .PER [facility] PROTOCOL [facility] PRN Reason: Protocol Last Admin: 06/28/17 12:13 Dose: 1 mg Multivitamins/Minerals (Theragran/Minerals Tab*) 1 tab PO DAILY [facility] Last Admin: 06/28/17 15:03 Dose: 1 tab Omeprazole (Prilosec Cap*) 20 mg PO BID [facility] Last Admin: 06/28/17 15:03 Dose: 20 mg Thiamine HCl (Vitamin B-1 Tab*) 100 mg PO DAILY [facility] Last Admin: 06/28/17 15:03 Dose: 100 mg Vital Signs 06/27/17 06/27/17 06/27/17 18:00 18:03 18:05 Temperature Pulse Rate 122 121 Respiratory 18 Rate Blood Pressure (mmHg) O2 Sat by Pulse 96 96 Oximetry 06/27/17 06/27/17 06/27/17 18:06 18:30 19:49 Temperature 98.5 F Pulse Rate 107 120 Respiratory 20 Rate Blood Pressure 143/91 126/105 161/97 (mmHg) O2 Sat by Pulse 95 99 Oximetry 06/27/17 06/27/17 06/27/17 20:32 20:33 22:32 Temperature Pulse Rate Respiratory 20 20 20 Rate Blood Pressure (mmHg) O2 Sat by Pulse Oximetry 06/27/17 06/27/17 06/27/17 22:33 22:55 23:29 Temperature 98.8 F Pulse Rate 106 Respiratory 20 20 18 Rate Blood Pressure 150/93 (mmHg) O2 Sat by Pulse 99 Oximetry 06/28/17 06/28/17 06/28/17 00:40 00:55 01:02 Temperature 98.6 F Pulse Rate 97 Respiratory 20 20 20 Rate Blood Pressure 147/89 (mmHg) O2 Sat by Pulse 100 Oximetry 06/28/17 06/28/17 06/28/17 01:56 02:40 03:04 Temperature 98.7 F Pulse Rate 86 Respiratory 20 20 20 Rate Blood Pressure 149/78 (mmHg) O2 Sat by Pulse 97 Oximetry 06/28/17 06/28/17 06/28/17 03:56 05:07 07:03 Temperature 98.7 F Pulse Rate 90 83 Respiratory 20 20 18 Rate Blood Pressure 147/93 147/90 (mmHg) O2 Sat by Pulse 99 98 Oximetry 06/28/17 06/28/17 06/28/17 07:09 09:37 10:20 Temperature 99.0 F Pulse Rate 95 Respiratory 18 16 Rate Blood Pressure 153/90 (mmHg) O2 Sat by Pulse 100 Oximetry 06/28/17 06/28/17 06/28/17 11:01 12:13 12:20 Temperature 98.9 F Pulse Rate 119 Respiratory 16 16 16 Rate Blood Pressure 152/100 (mmHg) O2 Sat by Pulse 98 Oximetry 06/28/17 06/28/17 15:01 15:45 Temperature 98.2 F Pulse Rate 115 Respiratory 20 Rate Blood Pressure 149/108 157/98 (mmHg) O2 Sat by Pulse 99 Oximetry Oxygen Devices in Use Now: None Appearance: 57 yo M in nAD, AAOx3 Eyes: No Scleral Icterus, PERRLA Ears/Nose/Mouth/Throat: NL Teeth, Lips, Gums, Mucous Membranes Moist Neck: NL Appearance and Movements; NL JVP, Trachea Midline Respiratory: Symmetrical Chest Expansion and Respiratory Effort, Clear to Auscultation Cardiovascular: NL Sounds; No Murmurs; No JVD, RRR Abdominal: NL Sounds; No Tenderness; No Distention Lymphatic: No Cervical Adenopathy Extremities: No Edema, No Clubbing, Cyanosis Skin: No Rash or Ulcers, No Nodules or Sclerosis Neurological: Alert and Oriented x 3, - - mild tremor b/l UE's Result Diagrams: 06/28/17 04:27 06/27/17 15:30 Assess/Plan/Problems-Billing Assessment: 57 yo M with h/o alcoholic presented after a fall with ETOH level> 440. - Patient Problems (1) Alcohol withdrawal Comment: Symptoms overall seem to be stable, but pt has orthostasis symptoms and will need additional IVF pior to discharge cont WAM d/c scheduled Ativan Cont IVF Continue thiamine, folate, MVM. (2) Chest pain Comment: Likely GI related Mildly elevated trop which is stable and without EKG changes cont PPI stress test low risk today (3) Erosive esophagitis Comment: Continue PPI (4) DVT prophylaxis Comment: no anticoagulants due to thrombocytopenia (5) Thrombocytopenia Comment: - Likely due to alcohol abuse Status and Disposition: OBV changed to inpatient due to need of IVF x 1 more day
[2017-06-28] MEDS: Magnesium Oxide TAB* 400 MG PO SCH (16:31)
[2017-06-29] MEDS: NS 0.9% 1000 ML* 1,000 ML IV SCH (02:42)
[2017-06-29 05:01] LABS: Hematocrit 38 % (42-52); Hemoglobin 12.5 g/dl (14.0-18.0); Mean Corpuscular HGB Conc 33 g/dl (31-36); Mean Corpuscular Hemoglobin 32 pg (27-31); Mean Corpuscular Volume 96 fL (80-94); Mean Platelet Volume 9 um3 (7.4-10.4); Red Blood Count 3.93 10^6/ul (4.0-5.4); Red Cell Distribution Width 17 % (10.5-15); White Blood Count 3.6 10^3/ul (3.5-10.8)
[2017-06-29 05:03] LABS: Comments Flag Yes
[2017-06-29 05:16] LABS: BUN/Creatinine Ratio 11.5 (8-20); Calcium 8.8 mg/dL (8.6-10.3); EGFR African American 209.2 (>60); EGFR Non-African American 162.7 (>60); Magnesium 1.7 mg/dL (1.9-2.7); Potassium 3.1 mmol/L (3.5-5.0)
[2017-06-29] MEDS: Omeprazole CAP* 20 MG PO SCH (08:56)
[2017-06-29] MEDS: Acetaminophen TAB* 325 MG PO PRN (08:57)
[2017-06-29] MEDS: Thiamine TAB* 100 MG TAB PO SCH (08:57)
[2017-06-29] MEDS: Magnesium Oxide TAB* 400 MG PO SCH (08:57)
[2017-06-29] MEDS: Folic Acid TAB* 1 MG PO SCH (08:57)
[2017-06-29] MEDS: Multivitamins/Minerals TAB PO SCH (08:57)
[2017-06-29] MEDS ORDERED: Magnesium Sulfate 1 GM IV* 1 GM/100 ML BAG IV ONE (10:55)
[2017-06-29] MEDS ORDERED: Potassium Chlor TAB* 20 MEQ TAB.ER PO ONE (11:00)
[2017-06-29 13:34] VITALS: BP 150/91
[2017-06-29] MEDS ORDERED: Magnesium Oxide TAB* 400 MG PO SCH (21:00)
--- NOTE | 2017-06-30 02:06 | DS ---
DISCHARGE SUMMARY: DATE OF ADMISSION: 06/27/17 DATE OF DISCHARGE: 06/29/17 PRIMARY CARE PROVIDER: The patient does not recall the name, but is a provider from [place]. DISCHARGE DIAGNOSES: 1. Alcohol withdrawal. 2. Mild elevation of troponin of 0.07 and substernal chest pain with low probability cardiac stress test documented on 06/28/17. Please note the patient has history of rib fractures in the past. SECONDARY DIAGNOSES: 1. Hypomagnesemia. 2. History of erosive esophagitis and GI bleed due to that in January 2017. 3. History of alcoholism. MEDICATIONS AT DISCHARGE: Include; 1. Omeprazole 30 mg twice a day. 2. Thiamine 100 mg daily. 3. Multivitamin 1 tablet daily. 4. Magnesium oxide 800 mg daily. 5. Folate 1 mg daily. LABORATORY DATA: Performed during the hospital stay include: On 06/29/17, sodium of 135, potassium 3.1, chloride 101, carbon dioxide 25, BUN 6, creatinine 0.52, and magnesium of 1.7. CBC: White blood cell count of 3.6, hemoglobin 12.5, hematocrit 38, and platelets of 63,000. Nuclear medicine cardiac stress test obtained on 06/28/17, impression: "Low risk." There were no fixed or reversible perfusion defects noted. Portable chest x-ray obtained on 06/27/17, impression: "No evidence of acute disease." Maxillofacial CT obtained on 06/27/17, impression: "No evidence of fracture." Brain CT obtained on the same day, impression: "No evidence of acute intracranial abnormality." HOSPITALIZATION COURSE: Clint Vuong is a 57-year-old male alcoholic who ever since he moved to our area from [place] had been seen frequently for intoxication hospital. He presented to the hospital originally on after he fell and sustained facial abrasions in the mall. He apparently was belligerent when he was brought to the hospital. His alcohol level was 488. He spent 20 hours in the emergency department due to alcohol intoxication and at the end of his ED stay, he started complaining of substernal chest pain. His troponin was subsequently 0.07, which is consistent from prior. He also started withdrawing and he was admitted to the hospital for alcohol withdrawal and for chest pain. At the time of his discharge, his chest pain resolved. The patient does have history of rib fractures that would explain his pain. Nevertheless, the patient with mildly elevated troponins. The patient had a cardiac stress test, which was low risk. His telemetry monitoring for 24 hours also did not show any marked abnormalities apart from sinus tachycardia, which is known to the patient. The patient did very well on his Ativan withdrawal protocol and by the time of discharge he did not need Ativan for almost 24 hours. His hypomagnesemia was replaced IV and p.o. and he is going to be placed on magnesium replacement as outpatient. Social work was called in regards to patient's alcoholism and recommended outpatient AA meetings. The patient refused to be placed in inpatient alcohol rehab. At discharge, the patient was recommended to follow up with his primary care provider in [place] whose name he could not recall at discharge. PHYSICAL EXAMINATION AT THE TIME OF DISCHARGE: Vitals Signs: Blood pressure 142/88, heart rate of 95 and regular, respiratory rate 18, oxygen saturation 98 % on room air, temperature 98.6. General: The patient is a very pleasant 57- year-old male who is in no acute distress. Alert, awake, and oriented x3. HEENT: Head with abrasion on the face and his left cheek and nose. Eyes: Extraocular motions are intact. Pupils are equal and reactive to light and accommodation. Oropharynx clear. Mucosa moist. Neck: Supple. No JVD. No bruits bilaterally. Cardiovascular: Regular rate and rhythm. No murmurs. Respiratory: Clear to auscultation bilaterally. Abdomen: Soft, nontender. Bowel sounds present in all 4 quadrants. Extremities: There is no edema. Pulses +2 bilaterally. No clubbing or cyanosis. Skin: Upon evaluation of the skin, the patient has abrasions on his face and on his bilateral knees. Skin is flushed. Neuro Evaluation: The patient has wide, but steady gait. Speech clear. Cranial nerves II through XII grossly intact. Please note this is a short summary of the patient's hospital stay. Please refer to further medical records for details. TIME SPENT: Approximately 40 minutes were spent on the patient's discharge. [id number]/[facility] #: [id number] [facility]
== END 2017-06-29 12:58 | disposition home or self-care (01) | DRG 775 ==
LOC: ED 21:50 → MEDTELE 06-27 17:51 → OBSVTOIN 06-28 15:54
PROVIDERS: ADMIT Internal Medicine; ATTEND Internal Medicine
DX: F10.239 Alcohol dependence with withdrawal, unspecified (principal); D69.6 Thrombocytopenia, unspecified; K22.10 Ulcer of esophagus without bleeding; Y90.8 Blood alcohol level of 240 mg/100 ml or more; J44.9 Chronic obstructive pulmonary disease, unspecified; K21.9 Gastro-esophageal reflux disease without esophagitis; F41.9 Anxiety disorder, unspecified; F10.229 Alcohol dependence with intoxication, unspecified; R74.8 Abnormal levels of other serum enzymes; R07.89 Other chest pain; S00.81XA Abrasion of other part of head, initial encounter; E83.42 Hypomagnesemia; R00.0 Tachycardia, unspecified; W17.89XA Other fall from one level to another, initial encounter; Y92.838 Other recreation area as the place of occurrence of the external cause; I25.2 Old myocardial infarction; Z82.3 Family history of stroke; Z82.49 Family history of ischemic heart disease and other diseases of the circulatory system
CPT/HCPCS: 36415; 70450; 70486; 71010; 78452; 80048; 80053; 80307; 80320; 80329; 81003; 81015; 83735; 84443; 84484; 85025; 85027; 93005; 93017; A9270-GY; A9502; G0378; G0480; J0280; J2060; J2785; J3411; J3475